=== PATIENT | male | born 1980 | race American Indian/Alaskan Native ===

== ENCOUNTER 2020-06-22 21:49 | Inpatient (IN) | payer SELFPAY ==
--- NOTE | 2020-06-22 23:04 | Event Note ---
ED Screening Note ED Screening Note: pain in the left shoulder, left knee, left lower back, left neck for since yesterday no fall or injury one episode of vomiting yesterday upper abd discomfort states feels like a muscle pulling hx of septic joint and HIV has been off meds for few weeks due to moving from [place] no med allergies This initial assessment/diagnostic orders/clinical plan/treatment(s) is/are subject to change based on patients health status, clinical progression and re- assessment by fellow clinical providers in the ED. Further treatment and workup at subsequent clinical providers discretion. Patient/guardian urged not to elope from the ED as their condition may be serious if not clinically assessed and managed. Initial orders include: labs, UA
[2020-06-23] MEDS ORDERED: ONDANSETRON 4 MG/2 ML INJ IV ONE (00:08)
[2020-06-23] MEDS ORDERED: SODIUM CHLORIDE 0.9% 1000 ML 1,000 ML IV ONE (00:08)
[2020-06-23] MEDS ORDERED: KETOROLAC 30 MG/1 ML INJ IV ONE (00:08)
[2020-06-23] MEDS ORDERED: dexAMETHasone 20 MG/5 ML VIAL IV ONE (00:08)
[2020-06-23] MEDS ORDERED: MORPHINE 4 MG/1 ML INJ IV ONE (00:08)
[2020-06-23] MEDS ORDERED: ACETAMINOPHEN 500 MG TAB PO ONE (00:19)
--- NOTE | 2020-06-23 00:19 | Emergency Department Report ---
ED Fever HPI - General Chief Complaint: Chest Pain Stated Complaint: CHEST DISCOMFORT PUI?: Yes Time Seen by Provider: 06/22/20 22:58 Source: patient Exam Limitations: no limitations - History of Present Illness Initial Comments: Chief complaint: "I am just hurting so badly." HPI: This is a 39-year-old male with history of HIV not on ART, septic arthritis who presents with 2 days of joint pain fever malaise anorexia fatigue. Patient first noted left knee pain. Now he has left shoulder pain. Pain severe in the left knee causing him to limp. The pain in the left knee radiates to thigh and groin. He also has left shoulder pain rating to the back. He feels "handicapped". It takes him 15 minutes to walk to the bathroom. It takes him 15 minutes to walk across his home. He has had poor appetite. He was brought to the ER per private auto. His friend brought him to the ER. He was diagnosed with acute HIV and septic arthritis 5 years ago in [place]. He was treated with needle aspiration of the left knee. He did not require operative therapy on the left knee. Patient moved from [place] in August. He is not taking ART HIV meds since August. He has active [place] Medicaid insurance. He is awaiting health insurance from [employer] he has now been employed for 2 months. He is awaiting health insurance provided by [employer]. He denies discrete chest or abdominal pain. Timing/Duration: other (2 days) Fever Severity/Quality: low grade Fever Therapy [employer]: none Associated Symptoms: other (Left shoulder pain left knee pain) ED Review of Systems ROS: Stated complaint: CHEST DISCOMFORT Other details as noted in HPI Comment: All other systems reviewed and negative Constitutional: fever, malaise. denies: chills ENT: denies: throat pain Respiratory: denies: cough, shortness of breath, wheezing Cardiovascular: denies: chest pain Gastrointestinal: denies: abdominal pain, nausea, vomiting Musculoskeletal: arthralgia ED Past Medical Hx - Past Medical History Previous Medical History?: Yes Hx HIV: Yes - Surgical History Past Surgical History?: No - Social History Smoking Status: Current Every Day Smoker Substance Use Type: Alcohol, Marijuana ED Physical Exam - General Limitations: No Limitations General appearance: alert, in no apparent distress, other (Guarding left arm, obviously in pain) - Head Head exam: Present: atraumatic, normocephalic - Eye Eye exam: Present: normal appearance - ENT ENT exam: Present: mucous membranes moist - Neck Neck exam: Present: normal inspection, full ROM - Respiratory Respiratory exam: Present: normal lung sounds bilaterally. Absent: respiratory distress, wheezes, rales, rhonchi - Cardiovascular Cardiovascular Exam: Present: normal rhythm, tachycardia, normal heart sounds. Absent: systolic murmur, diastolic murmur, rubs, gallop - GI/Abdominal GI/Abdominal exam: Present: soft, normal bowel sounds. Absent: distended, tenderness, guarding, rebound - Rectal Rectal exam: Present: deferred - Expanded Upper Extremity Exam Left Shoulder Exam: Present: full ROM, tenderness. Absent: swelling, abrasion, laceration, ecchymosis, deformity, crepidus, dislocation, erythema Upper Arm exam: Present: normal inspection, full ROM. Absent: tenderness, swelling, abrasion, laceration Elbow exam: Present: normal inspection, full ROM. Absent: tenderness, swelling, abrasion Forearm Wrist exam: Present: normal inspection, full ROM. Absent: tenderness, swelling Hand Wrist exam: Present: normal inspection, full ROM - Expanded Lower Extremity Exam Left Hip exam: Present: normal inspection, full ROM. Absent: tenderness, swelling Upper Leg exam: Present: normal inspection, full ROM Knee exam: Present: normal inspection, full ROM. Absent: tenderness, swelling, abrasion, ecchymosis, erythema, effusion Lower Leg exam: Present: normal inspection, full ROM. Absent: tenderness, swelling, abrasion Ankle exam: Present: normal inspection, full ROM. Absent: tenderness, swelling Neuro vascular tendon exam: Present: no vascular compromise - Neurological Exam Neurological exam: Present: alert, oriented X3 - Psychiatric Psychiatric exam: Present: normal affect, normal mood - Skin Skin exam: Present: warm, dry, intact, normal color. Absent: rash ED Course Vital Signs 06/22/20 06/23/20 06/23/20 22:08 00:13 00:26 Temperature 97.4 F L Pulse Rate 120 H 122 H Respiratory 18 17 18 Rate Blood Pressure 132/82 Blood Pressure 125/87 [Right] O2 Sat by Pulse 100 100 Oximetry ED Medical Decision Making - Lab Data Result diagrams: 06/23/20 00:12 06/23/20 00:12 - Radiology Data Radiology results: report reviewed, image reviewed CHEST 1 VIEW INDICATION: fever. Left-sided chest pain for the past 2 days with fever COMPARISON: None FINDINGS: SUPPORT DEVICES: None. HEART: Within normal limits. LUNGS/PLEURA: Mild central peribronchial thickening and trace fluid along the minor fissure. No dense consolidation or effusion. ADDITIONAL FINDINGS: None. IMPRESSION: 1. Pulmonary findings as above could be seen with very mild/early edema or atypical infectious/inflammatory etiology. - Medical Decision Making This is a 39-year-old male with history of HIV not compliant with ART who pre sents with subjective fever, joint pain in the shoulder in left knee. He stated that he had similar symptoms when he was diagnosed and hospitalized for acute HIV 5 years ago. X-ray reveals mild peribronchial thickening and trace fluid along the minor fissure. Upon my personal view, x-ray appears to have a reticular nodular pattern seen with pneumocystis pneumonia Patient has persistent tachycardia 120 bpm at rest after fluid resuscitation and IV analgesia. I am concerned for atypical pneumonia such as COVID-19 as well as opportunistic pneumonia including Streptococcus pneumonia versus pneumocystis pneumonia. Patient is admitted to hospital service. COVID-19 precautions instituted. No evidence of septic arthritis involving the left knee or left shoulder. Neither joint exhibits effusion. Antibiotics initiated in the ED include Bactrim DS, ceftriaxone, azithromycin. CBC reveals normal white count mild anemia chemistry unremarkable Critical care attestation.: If time is entered above; I have spent that time in minutes in the direct care of this critically ill patient, excluding procedure time. ED Disposition Clinical Impression: HIV (human immunodeficiency virus infection), Atypical pneumonia, Suspected COVID-19 virus infection Disposition: OP ADMIT IP TO THIS HOSP Is pt being admited?: Yes Does the pt Need Aspirin: No Condition: Stable
--- NOTE | 2020-06-23 00:38 | XRay Report ---
CHEST 1 VIEW INDICATION: fever. Left-sided chest pain for the past 2 days with fever COMPARISON: None FINDINGS: SUPPORT DEVICES: None. HEART: Within normal limits. LUNGS/PLEURA: Mild central peribronchial thickening and trace fluid along the minor fissure. No dense consolidation or effusion. ADDITIONAL FINDINGS: None. IMPRESSION: 1. Pulmonary findings as above could be seen with very mild/early edema or atypical infectious/inflam matory etiology. Signer Name: Dexter Leija MD Signed: 06/23/2020 12:34 AM Workstation Name: [id number]
[2020-06-23 00:51] LABS: Basophils % (Auto) 0.2 % (0.0-1.8); Eosinophils % (Auto) 0.1 % (0.0-4.3); Hematocrit 29.8 % (35.5-45.6); Hemoglobin 9.9 gm/dl (11.8-15.2); Lymphocytes # (Auto) 1.6 K/mm3 (1.2-5.4); Lymphocytes % (Auto) 15.2 % (13.4-35.0); Mean Corpuscular HGB Conc 33 % (32-34); Mean Corpuscular Volume 90 fl (84-94); Monocytes # (Auto) 0.9 K/mm3 (0.0-0.8); Monocytes % (Auto) 8.5 % (0.0-7.3); Platelet Count 181 K/mm3 (140-440); Red Blood Count 3.31 M/mm3 (3.65-5.03); Red Cell Distribution Width 14.7 % (13.2-15.2)
[2020-06-23 01:00] LABS: Alanine Aminotransferase 12 units/L (7-56); Albumin 2.7 g/dL (3.9-5); BUN/Creatinine Ratio 20; Blood Urea Nitrogen 16 mg/dL (9-20); Calcium 8.3 mg/dL (8.4-10.2); Hemolysis Index 1
[2020-06-23 02:04] LABS: Bilirubin,Urine NEG (Negative); Blood,Urine LG (Negative); Color,Urine Yellow (Yellow); Mucus,Urine FEW /HPF
[2020-06-23] MEDS ORDERED: SULFAMETHOXAZOLE/TRIMETHOPRIM 800/160MG DS TAB PO ONE (02:58)
[2020-06-23] MEDS ORDERED: AZITHROMYCIN 500 MG in SODIUM CHLORIDE 0.9% 250ML 250 ML IV ONE (02:59)
[2020-06-23] MEDS ORDERED: cefTRIAXone/NS 1 GM/50 ML 1 GM/50 ML BAG IV ONE (02:59)
[2020-06-23] MEDS ORDERED: ONDANSETRON 4 MG/2 ML INJ IV PRN (03:36)
[2020-06-23] MEDS ORDERED: MAGNESIUM HYDROXIDE (MOM) ORAL LIQD UDC PO PRN (03:36)
--- NOTE | 2020-06-23 03:58 | History and Physical Report ---
History of Present Illness Date of examination: 06/23/20 Date of admission: 06/23/20 03:03 Chief complaint: Fever Fatigue Shortness of Breath History of present illness: 39-year-old -[place] male with known history of HIV with unknown CD4 count noncompliant with antiretroviral therapy presents to the emergency room today complaining of fever, fatigue, generalized malaise and joint pains which has been ongoing for the past 2 days. He has also had some knee pain and shoulder pain. He denies any fall or trauma to these joints. He has been having difficulty ambulating secondary to the pain. He has also been having minimal shortness of breath. He denies any chest pain. Patient was diagnosed with HIV and septic arthritis about 5 years ago while in [facility] . He subsequently had needle aspiration of the left knee at that time. Patient moved to [place] sometime in September 2019 and has not had any recent travel. He works from home and denies any sick contacts. He has not been on his medication since August when he moved to [place] as he has not had insurance established at his new job. Work-up today in the emergency room chest x-ray reveals: mild/early edema or atypical infectious/inflammatory process. Patient is admitted with pneumonia and will rule out COVID-19. Past History Past Medical History: HIV/AIDS Past Surgical History: No surgical history Social history: smoking, alcohol abuse Family history: no significant family history Medications and Allergies Allergies Allergy/AdvReac Type Severity Reaction Status Date / Time No Known Allergies Allergy Verified 06/22/20 22:07 Active Meds: Active Medications Azithromycin 500 mg/ Sodium (Chloride) 250 mls @ 250 mls/hr IV ONCE ONE; Protocol Stop: 06/23/20 03:58 Last Admin: 06/23/20 03:20 Dose: 250 mls/hr Documented by: Review of Systems Constitutional: anorexia, fatigue, lethargy, poor appetite Ears, nose, mouth and throat: no nasal congestion, no sore throat Cardiovascular: no chest pain, no palpitations Respiratory: shortness of breath, no cough Gastrointestinal: no abdominal pain, no nausea, no vomiting, no diarrhea Genitourinary Male: no dysuria, no hematuria, no nocturia Musculoskeletal: no neck pain, no low back pain Integumentary: no rash, no pruritis Neurological: no headaches, no confusion Psychiatric: no anxiety, no depression Exam - Constitutional Vitals: Temp Pulse Resp BP Pulse Ox 97.4 F L 114 H 17 130/85 100 06/22/20 22:08 06/23/20 03:22 06/23/20 03:22 06/23/20 03:22 06/23/20 03:22 General appearance: Present: no acute distress, well-nourished - EENT Eyes: Present: PERRL, EOM intact. Absent: scleral icterus ENT: hearing intact, clear oral mucosa, dentition normal - Neck Neck: Present: supple, normal ROM - Respiratory Respiratory effort: normal Respiratory: bilateral: diminished - Cardiovascular Rhythm: regular Heart Sounds: Present: S1 & S2. Absent: gallop, systolic murmur, diastolic murmur, rub - Extremities Extremities: no ischemia, pulses intact, pulses symmetrical, No edema, Full ROM Peripheral Pulses: within normal limits - Abdominal General gastrointestinal: Present: soft, non-tender, non-distended, normal bowel sounds. Absent: mass - Integumentary Integumentary: Present: clear, warm, dry. Absent: rash - Musculoskeletal Musculoskeletal: strength equal bilaterally - Psychiatric Psychiatric: appropriate mood/affect, intact judgment & insight, memory intact, cooperative - Neurologic Neurologic: CNII-XII intact, no focal deficits, moves all extremities Results - Labs CBC & Chem 7: 06/23/20 00:12 06/23/20 00:12 Labs: Abnormal lab results 06/23/20 06/23/20 06/23/20 Range/Units 00:12 00:12 01:38 RBC 3.31 L (3.65-5.03) M/mm3 Hgb 9.9 L (11.8-15.2) gm/dl Hct 29.8 L (35.5-45.6) % [place] % (Auto) 8.5 H (0.0-7.3) % [place] # (Auto) 0.9 H (0.0-0.8) K/mm3 Seg Neutrophils % 76.0 H (40.0-70.0) % Seg Neutrophils # 8.1 H (1.8-7.7) K/mm3 Sodium 136 L (137-145) mmol/L Calcium 8.3 L (8.4-10.2) mg/dL Total Creatine Kinase 24 L (55-170) units/L Total Protein 8.4 H (6.3-8.2) g/dL Albumin 2.7 L (3.9-5) g/dL Urine WBC (Auto) 12.0 H (0.0-6.0) /HPF Assessment and Plan - Patient Problems (1) Atypical pneumonia Current Visit: Yes Status: Acute Plan to address problem: Patient placed on empiric IV antibiotics. We await culture results. In view of his history of HIV and noncompliance with antiretroviral agent, patient also placed on Bactrim. (2) HIV (human immunodeficiency virus infection) Current Visit: Yes Status: Acute Plan to address problem: CD4 count is unknown. Patient has not been antiretroviral agents for 9 months. (3) Suspected COVID-19 virus infection Current Visit: Yes Status: Acute Plan to address problem: We will place patient on isolation precautions. We await COVID-19 testing. Consult placed to infectious disease for evaluation. (4) DVT prophylaxis Current Visit: Yes Status: Acute Plan to address problem: Patient placed on subcutaneous Lovenox. (5) Full code status Current Visit: Yes Status: Acute
[2020-06-23] MEDS: SODIUM CHLORIDE 0.9% 1000 ML 1,000 ML IV SCH ×2 (05:00→22:53)
[2020-06-23] MEDS ORDERED: SULFAMETHOXAZOLE/TRIMETHOPRIM 800/160MG DS TAB PO SCH ×2 (10:00→22:00)
--- NOTE | 2020-06-23 13:42 | Consultation ---
History of Present Illness - Reason for Consult Consult date: 06/23/20 HIV, pneumonia Requesting physician: ANA PAYNE - History of Present Illness The patient is a 39-year-old male with HIV, not on antiretroviral therapy since September 2019, moved here from [place]. He came to the emergency room due to joint pain, fever, malaise, fatigue. He also has a history of septic arthritis of the knee. Upon evaluation in the ER, noted to be afebrile, remains on room air. Has been tachycardic. Labs showed normal WBC, procalcitonin of 1.65, UA with mild pyuria. Review of Systems: reviewed in the chart, unable to obtain, minimize risk of transmission Past History Past Medical History: HIV/AIDS Past Surgical History: No surgical history Social history: smoking, alcohol abuse Family history: no significant family history Medications and Allergies Allergies Allergy/AdvReac Type Severity Reaction Status Date / Time No Known Allergies Allergy Verified 06/22/20 22:07 Active Meds: Active Medications Acetaminophen (Acetaminophen 325 Mg Tab) 650 mg PO Q4H PRN PRN Reason: Pain MILD(1-3)/Fever >100.5/ISRAEL Sodium Chloride (Nacl 0.9% 1000 Ml) 1,000 mls @ 75 mls/hr IV DIRECT DEVONTE Last Admin: 06/23/20 05:00 Dose: 75 mls/hr Documented by: Ceftriaxone Sodium (Rocephin/Ns 2 Gm/100 Ml) 2 gm in 100 mls @ 200 mls/hr IV Q24H DEVONTE; Protocol Azithromycin 500 mg/ Sodium (Chloride) 250 mls @ 250 mls/hr IV Q24H DEVONTE; Protocol Magnesium Hydroxide (Magnesium Hydroxide (Mom) Oral Liqd Udc) 30 ml PO Q4H PRN PRN Reason: Constipation Morphine Sulfate (Morphine 2 Mg/1 Ml Inj) 2 mg IV Q4H PRN PRN Reason: Pain, Moderate (4-6) Ondansetron HCl (Ondansetron 4 Mg/2 Ml Inj) 4 mg IV Q8H PRN PRN Reason: Nausea And Vomiting Sodium Chloride (Sodium Chloride 0.9% 10 Ml Flush Syringe) 10 ml IV BID DEVONTE Last Admin: 06/23/20 09:31 Dose: 10 ml Documented by: Sodium Chloride (Sodium Chloride 0.9% 10 Ml Flush Syringe) 10 ml IV PRN PRN PRN Reason: LINE FLUSH Trimethoprim/Sulfamethoxazole (Sulfamethoxazole/Trimethoprim 800/160mg Ds Tab) 2 each PO Q12HR DEVONTE; Protocol Physical Examination - Physical Exam Narrative exam: Physical Exam (reviewed in chart to minimize risk of transmission) Constitutional: deferred Head, Ears, Nose: deferred Eyes: deferred Neck: deferred Oral: deferred Cardiovascular: deferred Respiratory: deferred GI: deferred Musculoskeletal: deferred Skin: deferred Hem/Lymphatic: deferred Psych: deferred Neurological: deferred - Constitutional Vitals: Vital Signs Temp Pulse Resp BP Pulse Ox 98.7 F 120 H 20 126/81 100 06/23/20 05:00 06/23/20 06:30 06/23/20 06:30 06/23/20 06:30 06/23/20 06:00 Temperature -Last 24 Hours Temperature 98.7 F Temperature 97.4 F Results - Labs CBC & Chem 7: 06/23/20 00:12 06/23/20 00:12 Labs: Abnormal lab results 06/23/20 06/23/20 06/23/20 Range/Units 00:12 00:12 01:38 RBC 3.31 L (3.65-5.03) M/mm3 Hgb 9.9 L (11.8-15.2) gm/dl Hct 29.8 L (35.5-45.6) % [place] % (Auto) 8.5 H (0.0-7.3) % [place] # (Auto) 0.9 H (0.0-0.8) K/mm3 Seg Neutrophils % 76.0 H (40.0-70.0) % Seg Neutrophils # 8.1 H (1.8-7.7) K/mm3 D-Dimer (0-234) ng/mlDDU Sodium 136 L (137-145) mmol/L Calcium 8.3 L (8.4-10.2) mg/dL Total Creatine Kinase 24 L (55-170) units/L Total Protein 8.4 H (6.3-8.2) g/dL Albumin 2.7 L (3.9-5) g/dL Urine WBC (Auto) 12.0 H (0.0-6.0) /HPF 06/23/20 Range/Units 03:25 RBC (3.65-5.03) M/mm3 Hgb (11.8-15.2) gm/dl Hct (35.5-45.6) % [place] % (Auto) (0.0-7.3) % [place] # (Auto) (0.0-0.8) K/mm3 Seg Neutrophils % (40.0-70.0) % Seg Neutrophils # (1.8-7.7) K/mm3 D-Dimer 1312.19 H (0-234) ng/mlDDU Sodium (137-145) mmol/L Calcium (8.4-10.2) mg/dL Total Creatine Kinase (55-170) units/L Total Protein (6.3-8.2) g/dL Albumin (3.9-5) g/dL Urine WBC (Auto) (0.0-6.0) /HPF - Imaging and Cardiology Chest x-ray: report reviewed, image reviewed (faint b/l opacities) Assessment and Plan Cultures: SARS CoV2 PCR: Pending Blood culture: In process A/P: 39-year-old male with HIV, not on antiretroviral therapy since September 2019, moved here from [place]: #SIRS/sepsis #Atypical pneumonia: CD4 unknown. Cover for CAP and possible PJP. Not hypoxic. #HIV: Not on antiretroviral therapy Recs: Follow-up COVID-19 PCR Empiric ceftriaxone, azithromycin Continue Bactrim for now, dose increased to 2 tabs BID HIV RNA PCR, CD4 count ordered Follow-up blood cultures LDH ordered Refugio Loyola MD, FACP [facility] ([facility]) O: [phone] F: [phone]
[2020-06-23] MEDS: MORPHINE 2 MG/1 ML INJ IV PRN ×2 (14:22→20:23)
--- NOTE | 2020-06-23 16:47 | Event Note ---
Date: 06/23/20 Patient admitted in early a.m. and seen by Dr. Cheney Chart reviewed Patient seen Patient has HIV, pneumonia Patient is coronavirus negative Continue present treatment HIV work-up pending
[2020-06-23] MEDS ORDERED: cefTRIAXone/NS 2 GM/100 ML 2 GM/100 ML BAG IV SCH (22:00)
[2020-06-23] MEDS ORDERED: AZITHROMYCIN 500 MG in SODIUM CHLORIDE 0.9% 250ML 250 ML IV SCH (22:00)
[2020-06-24 06:08] LABS: Basophils % (Auto) 0.2 % (0.0-1.8); Hematocrit 26.7 % (35.5-45.6); Hemoglobin 8.8 gm/dl (11.8-15.2); Lymphocytes # (Auto) 1.9 K/mm3 (1.2-5.4); Lymphocytes % (Auto) 15.9 % (13.4-35.0); Mean Corpuscular HGB Conc 33 % (32-34); Mean Corpuscular Volume 90 fl (84-94); Monocytes % (Auto) 8.5 % (0.0-7.3); Platelet Count 198 K/mm3 (140-440); Red Blood Count 2.97 M/mm3 (3.65-5.03); Red Cell Distribution Width 14.4 % (13.2-15.2)
[2020-06-24 06:14] LABS: INR 1.04 (0.87-1.13)
[2020-06-24 06:27] LABS: Blood Urea Nitrogen 15 mg/dL (9-20); Hemolysis Index 5
[2020-06-24 06:33] LABS: BUN/Creatinine Ratio 21
--- NOTE | 2020-06-24 14:49 | Progress Note ---
Assessment and Plan Cultures: SARS CoV2 PCR: negative Blood culture: 2 bottles with GNR and GPC A/P: 39-year-old male with HIV, not on antiretroviral therapy since September 2019, moved here from [place]: #SIRS/sepsis: secondary to bacteremia. #Bacteremia; GPC and GNR. Patient with left shoulder and hip pain, eval for septic arthritis. #Atypical pneumonia: CD4 unknown. Cover for CAP and possible PJP. Not hypoxic. #HIV: Not on antiretroviral therapy. Used to be undetectable, on Symtuza, has not taken meds for at least 2 months after he moved here. Risk factor is MSM. #History of left knee septic arthritis about 5 years ago: Treated with antibiotics. Recs: Follow-up blood cultures TTE ordered Empiric Cefepime, IV Vancomycin low suspicion for PJP, bactrim discontinued f/u HIV RNA PCR, CD4 count ordered Imaging studies ordered for left shoulder and hip including MRI. Orthopedics consult. Refugio Loyola MD, FACP [facility] ([facility]) O: [phone] F: [phone] Subjective Date of service: 06/24/20 Interval history: No fever. No significant cough. Main complaint is left shoulder and left hip pain. Objective - Exam Narrative Exam: Physical Exam: Constitutional: Alert, cooperative. No acute distress Head, Ears, Nose: Normocephalic, atraumatic. External ears, nose normal Eyes: Conjunctivae/corneas clear. No icterus. No ptosis. Neck: Supple, no meningeal signs Cardiovascular: S1, S2 normal. Respiratory: Good air entry, clear to auscultation bilaterally GI: Soft, non-tender; bowel sounds normal. No peritoneal signs Musculoskeletal: Left shoulder and left hip with significant pain, reduced range of motion Skin: No rash or abscess Hem/Lymphatic: No palpable cervical or supraclavicular nodes. No lymphangitis Psych: Mood ok. Affect normal Neurological: Awake, alert, oriented. No gross abnormality - Constitutional Vitals: Vital Signs Temp Pulse Resp BP Pulse Ox 97.6 F 98 H 20 140/95 98 06/24/20 04:46 06/24/20 04:46 06/24/20 04:46 06/24/20 04:46 06/24/20 04:46 Temperature -Last 24 Hours Temperature 97.6 F Temperature 98.8 F - Labs CBC & Chem 7: 06/24/20 04:40 06/24/20 04:40 Labs: Abnormal lab results 06/24/20 06/24/20 Range/Units 04:40 04:40 WBC 12.1 H (4.5-11.0) K/mm3 RBC 2.97 L (3.65-5.03) M/mm3 Hgb 8.8 L (11.8-15.2) gm/dl Hct 26.7 L (35.5-45.6) % [place] % (Auto) 8.5 H (0.0-7.3) % [place] # (Auto) 1.0 H (0.0-0.8) K/mm3 Seg Neutrophils % 75.4 H (40.0-70.0) % Seg Neutrophils # 9.1 H (1.8-7.7) K/mm3 Creatinine 0.7 L (0.8-1.3) mg/dL Glucose 113 H (75-100) mg/dL Calcium 8.0 L (8.4-10.2) mg/dL
[2020-06-24] MEDS ORDERED: VANCOMYCIN 1,000 MG in SODIUM CHLORIDE 0.9% 500 ML 500 ML IV ONE (14:54)
[2020-06-24] MEDS ORDERED: VANCOMYCIN PHARMACY TO DOSE IV SCH (15:00)
--- NOTE | 2020-06-24 16:06 | XRay Report ---
LEFT SHOULDER 3 VIEWS 1543 INDICATION: Pain, weakness, reduced range of motion, duration 3 days, no known injury COMPARISON: None available. FINDINGS: No fractures or dislocations are seen. Minimal glenohumeral degenerative changes are noted. LEFT HIP 2 VIEWS 1540 INDICATION: Pain, weakness, reduced range of motion, duration 3 days, no known injury COMPARISON: None available. FINDINGS: Mild left hip degenerative changes are seen. No fractures or dislocations are noted. Signer Name: Nacho Guallpa MD Signed: 06/24/2020 4:02 PM Workstation Name: [id number]
--- NOTE | 2020-06-24 17:40 | Progress Note ---
Assessment and Plan - Patient Problems (1) Atypical pneumonia Current Visit: Yes Status: Acute Plan to address problem: Patient initiated on ceftriaxone and vancomycin by ID \ (2) HIV (human immunodeficiency virus infection) Current Visit: Yes Status: Acute Plan to address problem: CD4 count is unknown. Patient has not been antiretroviral agents for 9 months. (3) Suspected COVID-19 virus infection Current Visit: Yes Status: Acute Plan to address problem: Patient negative for Covid virus (4) left shoulder pain and left hip pain Patient started on ceftriaxone . Vancomycin is discontinued septic arthritis to be ruled out patient refusing underlying MRI CAT scan of the abdomen Subjective Date of service: 06/25/20 Principal diagnosis: Pneumonia Interval history: 39-year-old -[place]ian male with known history of HIV with unknown CD4 count noncompliant with antiretroviral therapy presents to the emergency room today complaining of fever, fatigue, generalized malaise and joint pains which has been ongoing for the past 2 days. He has also had some knee pain and shoulder pain. He denies any fall or trauma to these joints. He has been having difficulty ambulating secondary to the pain. He has also been having minimal shortness of breath. He denies any chest pain. Patient was diagnosed with HIV and septic arthritis about 5 years ago while in [place] . He subsequently had needle aspiration of the left knee at that time. Patient moved to [place] sometime in September 2019 and has not had any recent travel. He works from home and denies any sick contacts. He has not been on his medication since August when he moved to [place] as he has not had insurance established at his new job. Work-up today in the emergency room chest x-ray reveals: mild/early edema or atypical infectious/inflammatory process. Patient is admitted with pneumonia and will rule out COVID-19. Day#2 Patient has lots of pain Day #3 06/25/2020 Patient resting comfortably Patient uncooperative during MRI x2 Blood cultures-haemophilus influenza A positive in 2 out of 2 bottles Objective - Constitutional General appearance: Present: no acute distress, well-nourished - EENT Eyes: PERRL, EOM intact ENT: hearing intact, clear oral mucosa Ears: bilateral: normal - Neck Neck: supple, normal ROM - Respiratory Respiratory effort: normal Respiratory: bilateral: CTA - Breasts Breasts: normal - Cardiovascular Heart rate: 78 Rhythm: regular Heart Sounds: Present: S1 & S2. Absent: gallop, rub Extremities: pulses intact, No edema, normal color, Full ROM - Gastrointestinal General gastrointestinal: Present: soft, non-tender, non-distended, normal bowel sounds - Genitourinary Male genitourinary: normal - Integumentary Integumentary: clear, warm, dry - Musculoskeletal Musculoskeletal: 1, strength equal bilaterally - Neurologic Neurologic: moves all extremities - Psychiatric Psychiatric: memory intact, appropriate mood/affect, intact judgment & insight - Labs CBC & Chem 7: 06/24/20 04:40 06/24/20 04:40 Labs: Abnormal lab results 06/24/20 06/24/20 Range/Units 04:40 04:40 WBC 12.1 H (4.5-11.0) K/mm3 RBC 2.97 L (3.65-5.03) M/mm3 Hgb 8.8 L (11.8-15.2) gm/dl Hct 26.7 L (35.5-45.6) % [place] % (Auto) 8.5 H (0.0-7.3) % [place] # (Auto) 1.0 H (0.0-0.8) K/mm3 Seg Neutrophils % 75.4 H (40.0-70.0) % Seg Neutrophils # 9.1 H (1.8-7.7) K/mm3 Creatinine 0.7 L (0.8-1.3) mg/dL Glucose 113 H (75-100) mg/dL Calcium 8.0 L (8.4-10.2) mg/dL
[2020-06-24] MEDS: HYDROmorphone 1 MG/1 ML INJ IV PRN ×2 (17:58→23:26)
[2020-06-24] MEDS: CEFEPIME/NS 2 GM/100 ML 2 GM/100 ML BAG IV SCH (18:01)
[2020-06-24] MEDS: VANCOMYCIN/NS 1 GM/250 ML 1 GM/250 ML BAG IV SCH (20:20)
[2020-06-25] MEDS: VANCOMYCIN/NS 1 GM/250 ML 1 GM/250 ML BAG IV SCH ×2 (01:48→11:58)
[2020-06-25] MEDS: MORPHINE 2 MG/1 ML INJ IV PRN (02:22)
[2020-06-25] MEDS: CEFEPIME/NS 2 GM/100 ML 2 GM/100 ML BAG IV SCH (05:09)
[2020-06-25] MEDS: HYDROmorphone 1 MG/1 ML INJ IV PRN ×3 (05:27→13:11)
[2020-06-25] MEDS ORDERED: LORazepam 2 MG/ML VIAL IV ONE (12:16)
--- NOTE | 2020-06-25 13:25 | Progress Note ---
Assessment and Plan Cultures: SARS CoV2 PCR: negative 06/23/2020 blood culture: Haemophilus influenzae in 2 sets. Coag negative staph in 1 set. A/P: 39-year-old male with HIV, not on antiretroviral therapy since September 2019, moved here from [place]: #SIRS/sepsis: secondary to bacteremia, ?pneumonia. #Bacteremia: Haemophilus influenzae in 2 sets, source probably pneumonia, but with left shoulder and hip pain, eval for septic arthritis. MRI pending. Ortho eval pending. Coag negative staph in 1 set, likely contaminant. TTE did not reveal any significant valvular abnormalities. #Pneumonia: CD4 unknown but was well controlled until recent, very likely to be PJP. Blood cultures positive for Haemophilus influenzae. #HIV: Not on antiretroviral therapy. Used to be undetectable, on Symtuza, has not taken meds for at least 2 months after he moved here. Risk factor is MSM. New insurance is going to kick in soon. #History of left knee septic arthritis about 5 years ago: Treated with antibiotics. Recs: -Repeat blood cultures ordered -Cefepime deescalated to IV ceftriaxone -Vancomycin discontinued -low suspicion for PJP, bactrim discontinued, if CD4 count is low, can start prophylactic dose -f/u HIV RNA PCR, CD4 count ordered -f/u MRI left shoulder and hip -f/u Orthopedics consult d/w Dr. Berkley Loyola MD, FACP [facility] O: [phone] F: [phone] Subjective Date of service: 06/25/20 Principal diagnosis: Pneumonia Interval history: No fever. Was initially unable to tolerate MRI due to pain, is now going back. TTE did not reveal any significant valvular abnormalities. Objective - Exam Narrative Exam: Physical Exam: Constitutional: Alert, cooperative. No acute distress Head, Ears, Nose: Normocephalic, atraumatic. External ears, nose normal Eyes: Conjunctivae/corneas clear. No icterus. No ptosis. Neck: Supple, no meningeal signs Cardiovascular: S1, S2 normal. Respiratory: Good air entry, clear to auscultation bilaterally GI: Soft, non-tender; bowel sounds normal. No peritoneal signs Musculoskeletal: Left shoulder and left hip with significant pain, reduced range of motion Skin: No rash or abscess Hem/Lymphatic: No palpable cervical or supraclavicular nodes. No lymphangitis Psych: Mood ok. Affect normal Neurological: Awake, alert, oriented. No gross abnormality - Constitutional Vitals: Vital Signs Temp Pulse Resp BP Pulse Ox 99.3 F 120 H 18 170/93 95 06/25/20 05:10 06/25/20 05:10 06/25/20 05:57 06/25/20 05:10 06/25/20 05:10 Temperature -Last 24 Hours Temperature 99.3 F Temperature 98.0 F Temperature 99.2 F - Labs CBC & Chem 7: 06/24/20 04:40 06/24/20 04:40
--- NOTE | 2020-06-25 15:08 | Progress Note ---
Assessment and Plan - Patient Problems (1) Atypical pneumonia Current Visit: Yes Status: Acute Plan to address problem: Patient initiated on ceftriaxone (2) HIV (human immunodeficiency virus infection) Current Visit: Yes Status: Acute Plan to address problem: CD4 count is unknown. Patient has not been antiretroviral agents for 9 months. (3) Suspected COVID-19 virus infection Current Visit: Yes Status: Acute Plan to address problem: Patient negative for Covi negative (4) left shoulder pain and left hip pain Patient started on ceftriaxone . Vancomycin is discontinued septic arthritis to be ruled out patient refusing underlying MRI CAT scan of the abdomen - Patient Problems (1) Atypical pneumonia Current Visit: Yes Status: Acute Plan to address problem: Patient is on ceftriaxone for haemophilus influenza infection (2) HIV (human immunodeficiency virus infection) Current Visit: Yes Status: Acute Plan to address problem: Continue antiretrovirals (3) Suspected COVID-19 virus infection Current Visit: Yes Status: Acute Plan to address problem: Covid ruled out (4) DVT prophylaxis Current Visit: Yes Status: Acute Plan to address problem: hepatin Subjective Date of service: 06/25/20 Principal diagnosis: Pneumonia Interval history: 39-year-old -[place] male with known history of HIV with unknown CD4 count noncompliant with antiretroviral therapy presents to the emergency room today complaining of fever, fatigue, generalized malaise and joint pains which has been ongoing for the past 2 days. He has also had some knee pain and shoulder pain. He denies any fall or trauma to these joints. He has been having difficulty ambulating secondary to the pain. He has also been having minimal shortness of breath. He denies any chest pain. Patient was diagnosed with HIV and septic arthritis about 5 years ago while in [place] . He subsequently had needle aspiration of the left knee at that time. Patient moved to [place] sometime in September 2019 and has not had any recent travel. He works from home and denies any sick contacts. He has not been on his medication since August when he moved to [place] as he has not had insurance established at his new job. Work-up today in the emergency room chest x-ray reveals: mild/early edema or atypical infectious/inflammatory process. Patient is admitted with pneumonia and will rule out COVID-19. Day#2 Patient has lots of pain Day #3 06/25/2020 Patient resting comfortably Patient uncooperative during MRI x2 Blood cultures-haemophilus influenza A positive in 2 out of 2 bottles Objective - Constitutional Vitals: Vital Signs - 12hr 06/25/20 06/25/20 06/25/20 05:10 05:27 05:57 Temperature 99.3 F Pulse Rate 120 H Respiratory 18 20 18 Rate Blood Pressure 170/93 O2 Sat by Pulse 95 Oximetry - Labs CBC & Chem 7: 06/24/20 04:40 06/24/20 04:40
[2020-06-25] MEDS: cefTRIAXone/NS 2 GM/100 ML 2 GM/100 ML BAG IV SCH (17:51)
[2020-06-25] MEDS: SODIUM CHLORIDE 0.9% 1000 ML 1,000 ML IV SCH (17:52)
[2020-06-25] MEDS: ACETAMINOPHEN 325 MG TAB PO PRN (18:00)
[2020-06-26 05:10] LABS: Basophils % (Auto) 0.1 % (0.0-1.8); Eosinophils % (Auto) 0.1 % (0.0-4.3); Hematocrit 27.1 % (35.5-45.6); Hemoglobin 9.2 gm/dl (11.8-15.2); Lymphocytes # (Auto) 2.1 K/mm3 (1.2-5.4); Lymphocytes % (Auto) 24.7 % (13.4-35.0); Mean Corpuscular HGB Conc 34 % (32-34); Mean Corpuscular Volume 88 fl (84-94); Monocytes # (Auto) 1.2 K/mm3 (0.0-0.8); Platelet Count 350 K/mm3 (140-440); Red Blood Count 3.09 M/mm3 (3.65-5.03); Red Cell Distribution Width 14.4 % (13.2-15.2)
[2020-06-26 05:24] LABS: Alanine Aminotransferase 7 units/L (7-56); Albumin 2.1 g/dL (3.9-5); Blood Urea Nitrogen 8 mg/dL (9-20); Calcium 8.2 mg/dL (8.4-10.2); Hemolysis Index 0
[2020-06-26 05:25] LABS: BUN/Creatinine Ratio 11
[2020-06-26] MEDS: ACETAMINOPHEN 325 MG TAB PO PRN ×2 (05:51→23:13)
[2020-06-26] MEDS: HYDROmorphone 1 MG/1 ML INJ IV PRN ×3 (06:14→23:12)
[2020-06-26] MEDS: cefTRIAXone/NS 2 GM/100 ML 2 GM/100 ML BAG IV SCH (09:41)
[2020-06-26] MEDS: SODIUM CHLORIDE 0.9% 1000 ML 1,000 ML IV SCH (09:41)
[2020-06-26] MEDS ORDERED: SYMTUZA PO SCH (12:45)
--- NOTE | 2020-06-26 12:47 | Progress Note ---
Assessment and Plan Assessment and plan: 39-year-old -[place] male with known history of HIV with unknown CD4 count noncompliant with antiretroviral therapy presents to the emergency room today complaining of fever, fatigue, generalized malaise and joint pains which has been ongoing for the past 2 days. He has also had some knee pain and shoulder pain. He denies any fall or trauma to these joints. He has been having difficulty ambulating secondary to the pain. He has also been having minimal shortness of breath. He denies any chest pain. Patient was diagnosed with HIV and septic arthritis about 5 years ago while in [place] . He subsequently had needle aspiration of the left knee at that time. Patient moved to [place] sometime in September 2019 and has not had any recent travel. He works from home and denies any sick contacts. He has not been on his medication since August when he moved to [place] as he has not had insurance established at his new job. Work-up today in the emergency room chest x-ray reveals: mild/early edema or atypical infectious/inflammatory process. Patient is admitted with pneumonia and will rule out COVID-19. Day#2 Patient has lots of pain Day #3 06/25/2020 Patient resting comfortably Patient uncooperative during MRI x2 Blood cultures-haemophilus influenza A positive in 2 out of 2 bottles 06/26: Remain septic at this time. Continue antibiotic therapy. Obtain imaging studies as updated. With the patient's permission discussed clinical care with the mom. We will also request for records from [facility] [place] [place] in [place] Sepsis with multifactorial etiology primarily atypical pneumonia but rule out septic joint. Imaging studies pending we will place a mid line for IV access. To be able to obtain the MRI as ordered by ID. Left upper and lower extremity hemiplegia and tenderness Likely secondary to infectious process nevertheless will rule out CVA. PT OT evaluate and treat. Secondary coagulopathy Rule out pulmonary embolism and also evaluate for DVTs lower extremities Atypical pneumonia secondary to influenza A Current Visit: Yes Status: Acute Plan to address problem: Patient initiated on ceftriaxone HIV (human immunodeficiency virus infection) Current Visit: Yes Status: Acute Plan to address problem: CD4 count is unknown. Patient has not been antiretroviral agents for 9 months. Resume home medication Suspected COVID-19 virus infection Current Visit: Yes Status: Acute Plan to address problem: Patient negative for Covi negative left shoulder pain and left hip pain Patient started on ceftriaxone . Vancomycin is discontinued septic arthritis to be ruled out patient refusing underlying MRI CAT scan of the abdomen DVT prophylaxis Current Visit: Yes Status: Acute Plan to address problem: hepatin Plan of care discussed with the patient in detail also discussed with patient's mom. History Interval history: Patient seen and examined this morning while reports that his breathing is stable does have significant weakness on the left side unable to lift his left upper extremity more than 45 degree angle due to tenderness at the shoulder level and also unable to lift up his left lower extremity to 30 degrees due to severe pain at the posterior aspect of the knee and also at the hip. He did have a documented temp of 101 this morning. Hospitalist Physical - Physical exam Narrative exam: VITAL SIGNS: Reviewed. GENERAL: The patient appears normally developed, Vital signs as documented. HEAD: No signs of head trauma. EYES: Pupils are equal. Extraocular motions intact. EARS: Hearing grossly intact. MOUTH: Oropharynx is normal. NECK: No adenopathy, no JVD. CHEST: Chest with clear breath sounds bilaterally. No wheezes, rales, or rhonchi. CARDIAC: Regular rate and rhythm. S1 and S2, without murmurs, gallops, or rubs. VASCULAR: No Edema. Peripheral pulses normal and equal in all extremities. ABDOMEN: Soft, non tender and non distended. No rebound or guarding, and no masses palpated. Bowel Sounds normal. MUSCULOSKELETAL: Left shoulder with limited range of motion and left hip significant pain . Extremities without clubbing, cyanosis or edema. NEUROLOGIC EXAM: Alert and oriented x 3 No focal sensory or strength deficits. Speech normal. Follows commands. PSYCHIATRIC: Mood normal. SKIN: detail exam as documented in skin assessment - Constitutional Vitals: Temp Pulse Resp BP Pulse Ox 98.3 F 106 H 18 139/97 96 06/26/20 11:16 06/26/20 11:16 06/26/20 11:16 06/26/20 11:16 06/26/20 11:16 General appearance: Present: no acute distress, well-nourished Results - Labs CBC & Chem 7: 06/26/20 03:57 06/26/20 03:57 Labs: Laboratory Last Values WBC 8.4 K/mm3 (4.5-11.0) 06/26/20 03:57 RBC 3.09 M/mm3 (3.65-5.03) L 06/26/20 03:57 Hgb 9.2 gm/dl (11.8-15.2) L 06/26/20 03:57 Hct 27.1 % (35.5-45.6) L 06/26/20 03:57 MCV 88 fl (84-94) 06/26/20 03:57 MCH 30 pg (28-32) 06/26/20 03:57 MCHC 34 % (32-34) 06/26/20 03:57 RDW 14.4 % (13.2-15.2) 06/26/20 03:57 Plt Count 350 K/mm3 (140-440) 06/26/20 03:57 Lymph % (Auto) 24.7 % (13.4-35.0) 06/26/20 03:57 [place] % (Auto) 14.0 % (0.0-7.3) H 06/26/20 03:57 Eos % (Auto) 0.1 % (0.0-4.3) 06/26/20 03:57 Baso % (Auto) 0.1 % (0.0-1.8) 06/26/20 03:57 Lymph # (Auto) 2.1 K/mm3 (1.2-5.4) 06/26/20 03:57 [place] # (Auto) 1.2 K/mm3 (0.0-0.8) H 06/26/20 03:57 Eos # (Auto) 0.0 K/mm3 (0.0-0.4) 06/26/20 03:57 Baso # (Auto) 0.0 K/mm3 (0.0-0.1) 06/26/20 03:57 Seg Neutrophils % 61.1 % (40.0-70.0) 06/26/20 03:57 Seg Neutrophils # 5.1 K/mm3 (1.8-7.7) 06/26/20 03:57 PT 13.4 Sec. (12.2-14.9) 06/24/20 04:40 INR 1.04 (0.87-1.13) 06/24/20 04:40 D-Dimer 1312.19 ng/mlDDU (0-234) H 06/23/20 03:25 Sodium 131 mmol/L (137-145) L D 06/26/20 03:57 Potassium 3.6 mmol/L (3.6-5.0) 06/26/20 03:57 Chloride 97.4 mmol/L (98-107) L 06/26/20 03:57 Carbon Dioxide 30 mmol/L (22-30) 06/26/20 03:57 Anion Gap 7 mmol/L 06/26/20 03:57 BUN 8 mg/dL (9-20) L 06/26/20 03:57 Creatinine 0.7 mg/dL (0.8-1.3) L 06/26/20 03:57 Estimated GFR > 60 ml/min 06/26/20 03:57 BUN/Creatinine Ratio 11 % 06/26/20 03:57 Glucose 98 mg/dL (75-100) 06/26/20 03:57 Calcium 8.2 mg/dL (8.4-10.2) L 06/26/20 03:57 Total Bilirubin 0.40 mg/dL (0.1-1.2) 06/26/20 03:57 AST 9 units/L (5-40) 06/26/20 03:57 ALT 7 units/L (7-56) 06/26/20 03:57 Alkaline Phosphatase 54 units/L (35-129) 06/26/20 03:57 Total Creatine Kinase 24 units/L (55-170) L 06/23/20 00:12 Total Protein 8.3 g/dL (6.3-8.2) H 06/26/20 03:57 Albumin 2.1 g/dL (3.9-5) L 06/26/20 03:57 Albumin/Globulin Ratio 0.3 % 06/26/20 03:57 Lipase 15 units/L (13-60) 06/23/20 00:12 Procalcitonin 1.65 ng/mL (<0.15) 06/23/20 03:25 Urine Color Yellow (Yellow) 06/23/20 01:38 Urine Turbidity Clear (Clear) 06/23/20 01:38 Urine pH 5.0 (5.0-7.0) 06/23/20 01:38 Ur Specific [place] 1.020 (1.003-1.030) 06/23/20 01:38 Urine Protein 100 mg/dl mg/dL (Negative) 06/23/20 01:38 Urine Glucose (UA) Neg mg/dL (Negative) 06/23/20 01:38 Urine Ketones Neg mg/dL (Negative) 06/23/20 01:38 Urine Blood Lg (Negative) 06/23/20 01:38 Urine Nitrite Neg (Negative) 06/23/20 01:38 Urine Bilirubin Neg (Negative) 06/23/20 01:38 Urine Urobilinogen 4.0 mg/dL (<2.0) 06/23/20 01:38 Ur Leukocyte Esterase Neg (Negative) 06/23/20 01:38 Urine WBC (Auto) 12.0 /HPF (0.0-6.0) H 06/23/20 01:38 Urine RBC (Auto) 46.0 /HPF (0.0-6.0) 06/23/20 01:38 U Epithel Cells (Auto) 1.0 /HPF (0-13.0) 06/23/20 01:38 Urine Mucus Few /HPF 06/23/20 01:38 Coronavirus (PCR) Negative (Negative) 06/23/20 Unknown Microbiology: Microbiology 06/25/20 14:45 Peripheral/Venous Blood Culture - Preliminary Culture in Progress 06/23/20 00:12 Peripheral/Venous Blood Culture - Preliminary Haemophilus Influenzae Coag Negative Staphylococcus 06/23/20 01:08 Peripheral/Venous Blood Culture - Preliminary Haemophilus Influenzae - Diagnostic Impressions Diagnostic Impressions: Echocardiogram 06/24/20 14:54 Transthoracic Echocardiogram Indication: Endocarditis BP: 170/93 HR: 118 Conclusions *Global left ventricular systolic function is normal. *The estimated ejection fraction is 55-60%. *Mild concentric left ventricular hypertrophy is observed. *The right ventricular global systolic function is normal. *The right ventricle is mildly dilated. *The aortic valve is trileaflet. The leaflets are thin with normal excursion. There is no aortic stenosis or regurgitation present. *There is trace of mitral regurgitation. *There is mild tricuspid regurgitation. Findings Left Ventricle: The left ventricular chamber size is normal. Mild concentric left ventricular hypertrophy is observed. Global left ventricular wall motion and contractility are within normal limits. Global left ventricular systolic function is normal. The estimated ejection fraction is 55-60%. Left Atrium: The left atrial chamber size is normal. Right Ventricle: The right ventricle is mildly dilated. The right ventricular global systolic function is normal. Right Atrium: The right atrium is mildly dilated. Aortic Valve: The aortic valve is trileaflet. The leaflets are thin with normal excursion. There is no aortic stenosis or regurgitation present. Mitral Valve: The mitral valve leaflets appear normal. There is trace of mitral regurgitation. Tricuspid Valve: The tricuspid valve leaflets are normal. There is mild tricuspid regurgitation. Pulmonic Valve: There is no evidence of pulmonic valve thickening. There is trace pulmonic regurgitation. Pericardium: There is no pericardial effusion. Aorta: The aorta appears normal. Venous: The inferior vena cava appears normal in size. Measurements Chambers 2D Name Value Normal Range IVSd (2D) 1.16 cm (0.6 - 1.1) LVPWd (2D) 1.19 cm (0.6 - 1.1) LVIDd (2D) 4.61 cm (3.7 - 5.6) LVIDs (2D) 3.17 cm (2 - 3.8) LV FS (2D) 31.2 % - EF Teichholz (2D) 59.02 % - Ao root diameter (2D) 2.85 cm (2 - 3.7) Volumes/Mass Name Value Normal Range LA ESV SP 4CH (A/L) 47.43 ml - LA ESV SP 2CH (A/L) 81.49 ml - LA ESV BP (A/L) 63.56 ml - LA ESV BP (A/L) index 33.45 ml/m2 - LA ESV SP 4CH (MOD) 40.85 ml - LA ESV SP 2CH (MOD) 76.91 ml - LA ESV BP (MOD) 56.95 ml - LA ESV BP (MOD) index 29.97 ml/m2 - Aortic Valve Name Value Normal Range AV Vmax 1.52 m/sec - AV VTI 25.38 cm - AV peak gradient 9.26 mmHg - AV mean gradient 5.12 mmHg - LVOT diameter 2.18 cm - LVOT Vmax 1.34 m/sec - LVOT VTI 20.19 cm - LVOT peak gradient 7.23 mmHg - LVOT mean gradient 2.75 mmHg - SV LVOT 75.66 ml - MATT (continuity Vmax) 3.31 cm2 - MATT (continuity VTI) 2.98 cm2 - Ascending Ao 2.83 cm - Mitral Valve Name Value Normal Range MV PHT 27.95 msec - MVA (PHT) 7.87 cm2 - Tricuspid Valve Name Value Normal Range TR Vmax 3.61 m/sec - TR peak gradient 52 mmHg - RAP 3 mmHg - RVSP 55 mmHg - IVC diameter 1.73 cm (1.2 - 2.3) Pulmonic Valve/Qp:Qs Name Value Normal Range PV Vmax 0.63 m/sec - PV peak gradient 2.39 mmHg - AR end-diastolic Vmax 1.35 m/sec - PV acceleration time 91.34 msec - NDUM: 06/25/20 1210 Amended Report Transthoracic Echocardiogram Indication: Endocarditis BP: 170/93 HR: 118 Conclusions *Global left ventricular systolic function is normal. *The estimated ejection fraction is 55-60%. *Mild concentric left ventricular hypertrophy is observed. *The right ventricular global systolic function is normal. *The right ventricle is mildly dilated. *The aortic valve is trileaflet. The leaflets are thin with normal excursion. There is no aortic stenosis or regurgitation present. *There is trace of mitral regurgitation. *There is mild tricuspid regurgitation. *no obvious vegatations noted on mitral or aortic valve or tricupid, if clinically indicated consider matteo Findings Left Ventricle: The left ventricular chamber size is normal. Mild concentric left ventricular hypertrophy is observed. Global left ventricular wall motion and contractility are within normal limits. Global left ventricular systolic function is normal. The estimated ejection fraction is 55-60%. Left Atrium: The left atrial chamber size is normal. Right Ventricle: The right ventricle is mildly dilated. The right ventricular global systolic function is normal. Right Atrium: The right atrium is mildly dilated. Aortic Valve: The aortic valve is trileaflet. The leaflets are thin with normal excursion. There is no aortic stenosis or regurgitation present. Mitral Valve: The mitral valve leaflets appear normal. There is trace of mitral regurgitation. Tricuspid Valve: The tricuspid valve leaflets are normal. There is mild tricuspid regurgitation. Pulmonic Valve: There is no evidence of pulmonic valve thickening. There is trace pulmonic regurgitation. Pericardium: There is no pericardial effusion. Aorta: The aorta appears normal. Venous: The inferior vena cava appears normal in size. Measurements Chambers 2D Name Value Normal Range IVSd (2D) 1.16 cm (0.6 - 1.1) LVPWd (2D) 1.19 cm (0.6 - 1.1) LVIDd (2D) 4.61 cm (3.7 - 5.6) LVIDs (2D) 3.17 cm (2 - 3.8) LV FS (2D) 31.2 % - EF Teichholz (2D) 59.02 % - Ao root diameter (2D) 2.85 cm (2 - 3.7) Volumes/Mass Name Value Normal Range LA ESV SP 4CH (A/L) 47.43 ml - LA ESV SP 2CH (A/L) 81.49 ml - LA ESV BP (A/L) 63.56 ml - LA ESV BP (A/L) index 33.45 ml/m2 - LA ESV SP 4CH (MOD) 40.85 ml - LA ESV SP 2CH (MOD) 76.91 ml - LA ESV BP (MOD) 56.95 ml - LA ESV BP (MOD) index 29.97 ml/m2 - Aortic Valve Name Value Normal Range AV Vmax 1.52 m/sec - AV VTI 25.38 cm - AV peak gradient 9.26 mmHg - AV mean gradient 5.12 mmHg - LVOT diameter 2.18 cm - LVOT Vmax 1.34 m/sec - LVOT VTI 20.19 cm - LVOT peak gradient 7.23 mmHg - LVOT mean gradient 2.75 mmHg - SV LVOT 75.66 ml - MATT (continuity Vmax) 3.31 cm2 - MATT (continuity VTI) 2.98 cm2 - Ascending Ao 2.83 cm - Mitral Valve Name Value Normal Range MV PHT 27.95 msec - MVA (PHT) 7.87 cm2 - Tricuspid Valve Name Value Normal Range TR Vmax 3.61 m/sec - TR peak gradient 52 mmHg - RAP 3 mmHg - RVSP 55 mmHg - IVC diameter 1.73 cm (1.2 - 2.3) Pulmonic Valve/Qp:Qs Name Value Normal Range PV Vmax 0.63 m/sec - PV peak gradient 2.39 mmHg - AR end-diastolic Vmax 1.35 m/sec - PV acceleration time 91.34 msec - Bishop/IV: Voiding Method Urinal IV Catheter Type [Left Peripheral IV Antecubital] IV Catheter Type [Right Peripheral IV Antecubital] Active Medications - Current Medications Current Medications: Generic Name Dose Route Start Last Admin Trade Name Freq PRN Reason Stop Dose Admin Acetaminophen 650 mg 06/23/20 03:36 06/26/20 05:51 Acetaminophen 325 Mg Tab PO 650 mg Q4H PRN Administration Pain MILD(1-3)/Fever >100.5/ISRAEL Hydromorphone HCl 0.25 mg 06/26/20 12:41 Hydromorphone 1 Mg/1 Ml Inj IV Q3H PRN Pain , Severe (7-10) Sodium Chloride 1,000 mls @ 75 mls/hr 06/23/20 03:45 06/26/20 09:41 Nacl 0.9% 1000 Ml IV 75 mls/hr DIRECT DEVONTE Administration Ceftriaxone Sodium 2 gm in 100 mls @ 200 mls/hr 06/25/20 14:00 06/26/20 09:41 Rocephin/Ns 2 Gm/100 Ml IV 200 mls/hr Q24HR DEVONTE Administration Protocol Magnesium Hydroxide 30 ml 06/23/20 03:36 Magnesium Hydroxide (Mom) Oral Liqd Udc PO Q4H PRN Constipation Ondansetron HCl 4 mg 06/23/20 03:36 Ondansetron 4 Mg/2 Ml Inj IV Q8H PRN Nausea And Vomiting Sodium Chloride 10 ml 06/23/20 10:00 06/26/20 09:42 Sodium Chloride 0.9% 10 Ml Flush Syringe IV 10 ml BID DEVONTE Administration Sodium Chloride 10 ml 06/23/20 03:36 Sodium Chloride 0.9% 10 Ml Flush Syringe IV PRN PRN LINE FLUSH
--- NOTE | 2020-06-26 14:00 | Cat Scan Report ---
CT HEAD/BRAIN WO CON INDICATION / CLINICAL INFORMATION: LEFT SIDED WEAKNESS. TECHNIQUE: All CT scans at this location are performed using CT dose reduction for ALARA by means of automated e xposure control. COMPARISON: None available. FINDINGS: The ventricular system is normal in size and configuration. No focal lesion or mass effect is seen. T here is no evidence of intracranial hemorrhage or acute major vessel occlusion. The calvarium is intact. There is opacification of multiple left middle and posterior ethmoid air alberto ls. The other paranasal sinuses and mastoid air cells are clear. IMPRESSION: 1. No acute intracranial abnormality. 2. Left ethmoid sinusitis. Signer Name: Jose Boswell MD Signed: 06/26/2020 1:55 PM Workstation Name: [id number]
--- NOTE | 2020-06-26 15:30 | Cat Scan Report ---
CT ANGIOGRAPHY OF THE CHEST WITH INTRAVENOUS CONTRAST AND MULTIPLANAR MIP RECONSTRUCTIONS INDICATION / CLINICAL INFORMATION: Respiratory distress. TECHNIQUE: Axial CT images were obtained after injection of 100 cc Omnipaque 350 IV contrast using CTA protocol. 3 plane MIP / 3D reconstructions were produced. All CT scans at this location are performed using CT dose reduction for ALARA by means of automated exposure control. COMPARISON: None available. FINDINGS: The timing of the bolus is suboptimal with poor opacification of the pulmonary arterial system bilate rally. No large central filling defect is seen. Evaluation of the peripheral pulmonary arteries is in adequate. The thoracic aorta is well-opacified without evidence of aneurysm or dissection. No coronar y artery abnormality is seen. There is mild to moderate bibasilar dependent atelectasis. The lungs are otherwise clear. There may b e a trace amount of left pleural fluid. No adenopathy. The visualized upper abdomen is unremarkable. No acute osseous abnormality is present. IMPRESSION: 1. Negative limited suboptimal examination for acute PTE. No large central embolus is seen. 2. Bibasilar dependent atelectasis. Signer Name: Jose Boswell MD Signed: 06/26/2020 3:26 PM Workstation Name: [id number]
[2020-06-27] MEDS: HYDROmorphone 1 MG/1 ML INJ IV PRN (07:49)
[2020-06-27] MEDS ORDERED: LORazepam 2 MG/ML VIAL IV STA (09:22)
--- NOTE | 2020-06-27 10:00 | Progress Note ---
Assessment and Plan Assessment and plan: 39-year-old -Luxembourger male with known history of HIV with unknown CD4 count noncompliant with antiretroviral therapy presents to the emergency room today complaining of fever, fatigue, generalized malaise and joint pains which has been ongoing for the past 2 days. He has also had some knee pain and shoulder pain. He denies any fall or trauma to these joints. He has been having difficulty ambulating secondary to the pain. He has also been having minimal shortness of breath. He denies any chest pain. Patient was diagnosed with HIV and septic arthritis about 5 years ago while in [place] . He subsequently had needle aspiration of the left knee at that time. Patient moved to [place] sometime in September 2019 and has not had any recent travel. He works from home and denies any sick contacts. He has not been on his medication since August when he moved to [place] as he has not had insurance established at his new job. Work-up today in the emergency room chest x-ray reveals: mild/early edema or atypical infectious/inflammatory process. Patient is admitted with pneumonia and will rule out COVID-19. Day#2 Patient has lots of pain Day #3 06/25/2020 Patient resting comfortably Patient uncooperative during MRI x2 Blood cultures-haemophilus influenza A positive in 2 out of 2 bottles 06/26: Remain septic at this time. Continue antibiotic therapy. Obtain imaging studies as updated. With the patient's permission discussed clinical care with the mom. We will also request for records from [facility] in [place]. 06/27: Xanax ordered for Patient to be able to obtain MRI, Continue abx, await PT/OT Sepsis with multifactorial etiology primarily atypical pneumonia but rule out septic joint. Imaging studies pending we will place a mid line for IV access. To be able to obtain the MRI as ordered by ID. Left upper and lower extremity hemiplegia and tenderness Likely secondary to infectious process nevertheless will rule out CVA. PT OT evaluate and treat. Secondary coagulopathy Rule out pulmonary embolism and also evaluate for DVTs lower extremities Atypical pneumonia secondary to influenza A Current Visit: Yes Status: Acute Plan to address problem: Patient initiated on ceftriaxone HIV (human immunodeficiency virus infection) Current Visit: Yes Status: Acute Plan to address problem: CD4 count is unknown. Patient has not been antiretroviral agents for 9 months. Resume home medication Suspected COVID-19 virus infection Current Visit: Yes Status: Acute Plan to address problem: Patient negative for Covi negative left shoulder pain and left hip pain Patient started on ceftriaxone . Vancomycin is discontinued septic arthritis to be ruled out patient refusing underlying MRI CAT scan of the abdomen DVT prophylaxis Current Visit: Yes Status: Acute Plan to address problem: hepatin Plan of care discussed with the patient in detail also discussed with patient's mom. History Interval history: Patient seen and examined this morning w still with weakness on the left side upper and lower extremity with some tenderness. low-grade temperature noted. Hospitalist Physical - Physical exam Narrative exam: VITAL SIGNS: Reviewed. GENERAL: The patient appears normally developed, Vital signs as documented. HEAD: No signs of head trauma. EYES: Pupils are equal. Extraocular motions intact. EARS: Hearing grossly intact. MOUTH: Oropharynx is normal. NECK: No adenopathy, no JVD. CHEST: Chest with clear breath sounds bilaterally. No wheezes, rales, or rhonchi. CARDIAC: Regular rate and rhythm. S1 and S2, without murmurs, gallops, or rubs. VASCULAR: No Edema. Peripheral pulses normal and equal in all extremities. ABDOMEN: Soft, non tender and non distended. No rebound or guarding, and no masses palpated. Bowel Sounds normal. MUSCULOSKELETAL: Left shoulder with limited range of motion and left hip significant pain . Extremities without clubbing, cyanosis or edema. NEUROLOGIC EXAM: Alert and oriented x 3 No focal sensory or strength deficits. Speech normal. Follows commands. PSYCHIATRIC: Mood normal. SKIN: detail exam as documented in skin assessment - Constitutional Vitals: Temp Pulse Resp BP Pulse Ox 98.9 F 113 H 20 144/96 98 06/27/20 06:15 06/27/20 06:15 06/27/20 07:49 06/27/20 06:15 06/27/20 06:15 General appearance: Present: no acute distress, well-nourished Results - Labs CBC & Chem 7: 06/26/20 03:57 06/26/20 03:57 Labs: Laboratory Last Values WBC 8.4 K/mm3 (4.5-11.0) 06/26/20 03:57 RBC 3.09 M/mm3 (3.65-5.03) L 06/26/20 03:57 Hgb 9.2 gm/dl (11.8-15.2) L 06/26/20 03:57 Hct 27.1 % (35.5-45.6) L 06/26/20 03:57 MCV 88 fl (84-94) 06/26/20 03:57 MCH 30 pg (28-32) 06/26/20 03:57 MCHC 34 % (32-34) 06/26/20 03:57 RDW 14.4 % (13.2-15.2) 06/26/20 03:57 Plt Count 350 K/mm3 (140-440) 06/26/20 03:57 Lymph % (Auto) 24.7 % (13.4-35.0) 06/26/20 03:57 [place] % (Auto) 14.0 % (0.0-7.3) H 06/26/20 03:57 Eos % (Auto) 0.1 % (0.0-4.3) 06/26/20 03:57 Baso % (Auto) 0.1 % (0.0-1.8) 06/26/20 03:57 Lymph # (Auto) 2.1 K/mm3 (1.2-5.4) 06/26/20 03:57 [place] # (Auto) 1.2 K/mm3 (0.0-0.8) H 06/26/20 03:57 Eos # (Auto) 0.0 K/mm3 (0.0-0.4) 06/26/20 03:57 Baso # (Auto) 0.0 K/mm3 (0.0-0.1) 06/26/20 03:57 Seg Neutrophils % 61.1 % (40.0-70.0) 06/26/20 03:57 Seg Neutrophils # 5.1 K/mm3 (1.8-7.7) 06/26/20 03:57 PT 13.4 Sec. (12.2-14.9) 06/24/20 04:40 INR 1.04 (0.87-1.13) 06/24/20 04:40 D-Dimer 1312.19 ng/mlDDU (0-234) H 06/23/20 03:25 Sodium 131 mmol/L (137-145) L D 06/26/20 03:57 Potassium 3.6 mmol/L (3.6-5.0) 06/26/20 03:57 Chloride 97.4 mmol/L (98-107) L 06/26/20 03:57 Carbon Dioxide 30 mmol/L (22-30) 06/26/20 03:57 Anion Gap 7 mmol/L 06/26/20 03:57 BUN 8 mg/dL (9-20) L 06/26/20 03:57 Creatinine 0.7 mg/dL (0.8-1.3) L 06/26/20 03:57 Estimated GFR > 60 ml/min 06/26/20 03:57 BUN/Creatinine Ratio 11 % 06/26/20 03:57 Glucose 98 mg/dL (75-100) 06/26/20 03:57 Calcium 8.2 mg/dL (8.4-10.2) L 06/26/20 03:57 Total Bilirubin 0.40 mg/dL (0.1-1.2) 06/26/20 03:57 AST 9 units/L (5-40) 06/26/20 03:57 ALT 7 units/L (7-56) 06/26/20 03:57 Alkaline Phosphatase 54 units/L (35-129) 06/26/20 03:57 Total Creatine Kinase 24 units/L (55-170) L 06/23/20 00:12 Total Protein 8.3 g/dL (6.3-8.2) H 06/26/20 03:57 Albumin 2.1 g/dL (3.9-5) L 06/26/20 03:57 Albumin/Globulin Ratio 0.3 % 06/26/20 03:57 Lipase 15 units/L (13-60) 06/23/20 00:12 Procalcitonin 1.65 ng/mL (<0.15) 06/23/20 03:25 Urine Color Yellow (Yellow) 06/23/20 01:38 Urine Turbidity Clear (Clear) 06/23/20 01:38 Urine pH 5.0 (5.0-7.0) 06/23/20 01:38 Ur Specific [place] 1.020 (1.003-1.030) 06/23/20 01:38 Urine Protein 100 mg/dl mg/dL (Negative) 06/23/20 01:38 Urine Glucose (UA) Neg mg/dL (Negative) 06/23/20 01:38 Urine Ketones Neg mg/dL (Negative) 06/23/20 01:38 Urine Blood Lg (Negative) 06/23/20 01:38 Urine Nitrite Neg (Negative) 06/23/20 01:38 Urine Bilirubin Neg (Negative) 06/23/20 01:38 Urine Urobilinogen 4.0 mg/dL (<2.0) 06/23/20 01:38 Ur Leukocyte Esterase Neg (Negative) 06/23/20 01:38 Urine WBC (Auto) 12.0 /HPF (0.0-6.0) H 06/23/20 01:38 Urine RBC (Auto) 46.0 /HPF (0.0-6.0) 06/23/20 01:38 U Epithel Cells (Auto) 1.0 /HPF (0-13.0) 06/23/20 01:38 Urine Mucus Few /HPF 06/23/20 01:38 Coronavirus (PCR) Negative (Negative) 06/23/20 Unknown Microbiology: Microbiology 06/25/20 14:45 Peripheral/Venous Blood Culture - Preliminary NO GROWTH AFTER 24 HOURS - Diagnostic Impressions Diagnostic Impressions: Echocardiogram 06/24/20 14:54 Transthoracic Echocardiogram Indication: Endocarditis BP: 170/93 HR: 118 Conclusions *Global left ventricular systolic function is normal. *The estimated ejection fraction is 55-60%. *Mild concentric left ventricular hypertrophy is observed. *The right ventricular global systolic function is normal. *The right ventricle is mildly dilated. *The aortic valve is trileaflet. The leaflets are thin with normal excursion. There is no aortic stenosis or regurgitation present. *There is trace of mitral regurgitation. *There is mild tricuspid regurgitation. Findings Left Ventricle: The left ventricular chamber size is normal. Mild concentric left ventricular hypertrophy is observed. Global left ventricular wall motion and contractility are within normal limits. Global left ventricular systolic function is normal. The estimated ejection fraction is 55-60%. Left Atrium: The left atrial chamber size is normal. Right Ventricle: The right ventricle is mildly dilated. The right ventricular global systolic function is normal. Right Atrium: The right atrium is mildly dilated. Aortic Valve: The aortic valve is trileaflet. The leaflets are thin with normal excursion. There is no aortic stenosis or regurgitation present. Mitral Valve: The mitral valve leaflets appear normal. There is trace of mitral regurgitation. Tricuspid Valve: The tricuspid valve leaflets are normal. There is mild tricuspid regurgitation. Pulmonic Valve: There is no evidence of pulmonic valve thickening. There is trace pulmonic regurgitation. Pericardium: There is no pericardial effusion. Aorta: The aorta appears normal. Venous: The inferior vena cava appears normal in size. Measurements Chambers 2D Name Value Normal Range IVSd (2D) 1.16 cm (0.6 - 1.1) LVPWd (2D) 1.19 cm (0.6 - 1.1) LVIDd (2D) 4.61 cm (3.7 - 5.6) LVIDs (2D) 3.17 cm (2 - 3.8) LV FS (2D) 31.2 % - EF Teichholz (2D) 59.02 % - Ao root diameter (2D) 2.85 cm (2 - 3.7) Volumes/Mass Name Value Normal Range LA ESV SP 4CH (A/L) 47.43 ml - LA ESV SP 2CH (A/L) 81.49 ml - LA ESV BP (A/L) 63.56 ml - LA ESV BP (A/L) index 33.45 ml/m2 - LA ESV SP 4CH (MOD) 40.85 ml - LA ESV SP 2CH (MOD) 76.91 ml - LA ESV BP (MOD) 56.95 ml - LA ESV BP (MOD) index 29.97 ml/m2 - Aortic Valve Name Value Normal Range AV Vmax 1.52 m/sec - AV VTI 25.38 cm - AV peak gradient 9.26 mmHg - AV mean gradient 5.12 mmHg - LVOT diameter 2.18 cm - LVOT Vmax 1.34 m/sec - LVOT VTI 20.19 cm - LVOT peak gradient 7.23 mmHg - LVOT mean gradient 2.75 mmHg - SV LVOT 75.66 ml - MATT (continuity Vmax) 3.31 cm2 - MATT (continuity VTI) 2.98 cm2 - Ascending Ao 2.83 cm - Mitral Valve Name Value Normal Range MV PHT 27.95 msec - MVA (PHT) 7.87 cm2 - Tricuspid Valve Name Value Normal Range TR Vmax 3.61 m/sec - TR peak gradient 52 mmHg - RAP 3 mmHg - RVSP 55 mmHg - IVC diameter 1.73 cm (1.2 - 2.3) Pulmonic Valve/Qp:Qs Name Value Normal Range PV Vmax 0.63 m/sec - PV peak gradient 2.39 mmHg - MD end-diastolic Vmax 1.35 m/sec - PV acceleration time 91.34 msec - NDUM: 06/25/20 1210 Amended Report Transthoracic Echocardiogram Indication: Endocarditis BP: 170/93 HR: 118 Conclusions *Global left ventricular systolic function is normal. *The estimated ejection fraction is 55-60%. *Mild concentric left ventricular hypertrophy is observed. *The right ventricular global systolic function is normal. *The right ventricle is mildly dilated. *The aortic valve is trileaflet. The leaflets are thin with normal excursion. There is no aortic stenosis or regurgitation present. *There is trace of mitral regurgitation. *There is mild tricuspid regurgitation. *no obvious vegatations noted on mitral or aortic valve or tricupid, if clinically indicated consider matteo Findings Left Ventricle: The left ventricular chamber size is normal. Mild concentric left ventricular hypertrophy is observed. Global left ventricular wall motion and contractility are within normal limits. Global left ventricular systolic function is normal. The estimated ejection fraction is 55-60%. Left Atrium: The left atrial chamber size is normal. Right Ventricle: The right ventricle is mildly dilated. The right ventricular global systolic function is normal. Right Atrium: The right atrium is mildly dilated. Aortic Valve: The aortic valve is trileaflet. The leaflets are thin with normal excursion. There is no aortic stenosis or regurgitation present. Mitral Valve: The mitral valve leaflets appear normal. There is trace of mitral regurgitation. Tricuspid Valve: The tricuspid valve leaflets are normal. There is mild tricuspid regurgitation. Pulmonic Valve: There is no evidence of pulmonic valve thickening. There is trace pulmonic regurgitation. Pericardium: There is no pericardial effusion. Aorta: The aorta appears normal. Venous: The inferior vena cava appears normal in size. Measurements Chambers 2D Name Value Normal Range IVSd (2D) 1.16 cm (0.6 - 1.1) LVPWd (2D) 1.19 cm (0.6 - 1.1) LVIDd (2D) 4.61 cm (3.7 - 5.6) LVIDs (2D) 3.17 cm (2 - 3.8) LV FS (2D) 31.2 % - EF Teichholz (2D) 59.02 % - Ao root diameter (2D) 2.85 cm (2 - 3.7) Volumes/Mass Name Value Normal Range LA ESV SP 4CH (A/L) 47.43 ml - LA ESV SP 2CH (A/L) 81.49 ml - LA ESV BP (A/L) 63.56 ml - LA ESV BP (A/L) index 33.45 ml/m2 - LA ESV SP 4CH (MOD) 40.85 ml - LA ESV SP 2CH (MOD) 76.91 ml - LA ESV BP (MOD) 56.95 ml - LA ESV BP (MOD) index 29.97 ml/m2 - Aortic Valve Name Value Normal Range AV Vmax 1.52 m/sec - AV VTI 25.38 cm - AV peak gradient 9.26 mmHg - AV mean gradient 5.12 mmHg - LVOT diameter 2.18 cm - LVOT Vmax 1.34 m/sec - LVOT VTI 20.19 cm - LVOT peak gradient 7.23 mmHg - LVOT mean gradient 2.75 mmHg - SV LVOT 75.66 ml - MATT (continuity Vmax) 3.31 cm2 - MATT (continuity VTI) 2.98 cm2 - Ascending Ao 2.83 cm - Mitral Valve Name Value Normal Range MV PHT 27.95 msec - MVA (PHT) 7.87 cm2 - Tricuspid Valve Name Value Normal Range TR Vmax 3.61 m/sec - TR peak gradient 52 mmHg - RAP 3 mmHg - RVSP 55 mmHg - IVC diameter 1.73 cm (1.2 - 2.3) Pulmonic Valve/Qp:Qs Name Value Normal Range PV Vmax 0.63 m/sec - PV peak gradient 2.39 mmHg - MD end-diastolic Vmax 1.35 m/sec - PV acceleration time 91.34 msec - Bishop/IV: Voiding Method Urinal IV Catheter Type [Left Peripheral IV Antecubital] IV Catheter Type [Right Peripheral IV Antecubital] Active Medications - Current Medications Current Medications: Generic Name Dose Route Start Last Admin Trade Name Freq PRN Reason Stop Dose Admin Acetaminophen 650 mg 06/23/20 03:36 06/26/20 23:13 Acetaminophen 325 Mg Tab PO 650 mg Q4H PRN Administration Pain MILD(1-3)/Fever >100.5/ISRAEL Hydromorphone HCl 0.25 mg 06/26/20 12:41 06/27/20 07:49 Hydromorphone 1 Mg/1 Ml Inj IV 0.25 mg Q3H PRN Administration Pain , Severe (7-10) Sodium Chloride 1,000 mls @ 75 mls/hr 06/23/20 03:45 06/26/20 09:41 Nacl 0.9% 1000 Ml IV 75 mls/hr DIRECT DEVONTE Administration Ceftriaxone Sodium 2 gm in 100 mls @ 200 mls/hr 06/25/20 14:00 06/26/20 09:41 Rocephin/Ns 2 Gm/100 Ml IV 200 mls/hr Q24HR DEVONTE Administration Protocol Magnesium Hydroxide 30 ml 06/23/20 03:36 Magnesium Hydroxide (Mom) Oral Liqd Udc PO Q4H PRN Constipation Miscellaneous Medication 1 tab 06/26/20 12:45 Symtuza [phone] Mg Tab PO DAILY DEVONTE Ondansetron HCl 4 mg 06/23/20 03:36 Ondansetron 4 Mg/2 Ml Inj IV Q8H PRN Nausea And Vomiting Sodium Chloride 10 ml 06/23/20 10:00 06/26/20 21:24 Sodium Chloride 0.9% 10 Ml Flush Syringe IV 10 ml BID DEVONTE Administration Sodium Chloride 10 ml 06/23/20 03:36 Sodium Chloride 0.9% 10 Ml Flush Syringe IV PRN PRN LINE FLUSH
--- NOTE | 2020-06-27 12:48 | Magnetic Resonance Report ---
MR LE joint LT wo/w con INDICATION: left hip, septic arthritis. TECHNIQUE: Multiplanar, multisequence MR images were obtained. COMPARISON: Left hip x-ray 06/24/2020 FINDINGS: This study was performed with and without IV contrast. There is abnormal hypointense T1 signal intens ity throughout the pelvis without abnormal enhancement or abnormal T2 signal intensity. There is no M R evidence for osteomyelitis. Moderate left hip effusion is present with moderate left hip pericapsular soft tissue edema and postc ontrast enhancement worrisome for septic arthritis. Diffuse subcutaneous edema is seen throughout the pelvis and left hip with enhancement on postcontrast images characteristic for for cellulitis. IMPRESSION: 1. Probable early left hip septic arthritis with hip effusion and pericapsular edema and enhancement. Recommend left hip aspiration. 2. No MR evidence for osteomyelitis. 3. Decreased T1 signal intensity throughout the pelvis could represent underlying anemia or lymphopro liferative process. Please correlate clinically Signer Name: Luc Andrea MD Signed: 06/27/2020 12:44 PM Workstation Name: [id number]
--- NOTE | 2020-06-27 12:52 | Magnetic Resonance Report ---
MRI LEFT SHOULDER WITHOUT AND WITH CONTRAST INDICATION: left shoulder, septic arthritis. COMPARISON: None available. TECHNIQUE: Multisequence, multiplanar images were obtained. FINDINGS: ACROMIOCLAVICULAR JOINT: Small moderate joint effusion with moderate amount of surrounding subcutaneo us soft tissue edema and enhancement worrisome for septic arthritis ACROMION: Type II SUPRASPINATUS: No significant abnormality. INFRASPINATUS: No significant abnormality. SUBSCAPULARIS: No significant abnormality. BICEPS TENDON, LONG HEAD: No significant abnormality. SUBACROMIAL/SUBDELTOID SPACE: No significant abnormality. GLENOID LABRUM: No significant abnormality. ARTICULAR CARTILAGE: No significant abnormality. JOINT SPACE AND CAPSULE: No significant abnormality. BONES: No significant bone marrow edema. No fracture. Diffuse hypointense T1 signal abnormality thro ughout the scapula and acromion could represent underlying anemia. There is no abnormal signal intens ity within the left humeral head epiphysis. SUBCUTANEOUS SOFT TISSUES: No significant abnormality. ADDITIONAL FINDINGS: None. IMPRESSION: 1. Probable early septic arthritis of left AC joint with surrounding cellulitis. No drainable fluid c ollection 2. Decreased T1 signal intensity throughout scapula could represent underlying anemia. Please correla te clinically Signer Name: Luc Andrea MD Signed: 06/27/2020 12:47 PM Workstation Name: [id number]
[2020-06-27] MEDS: cefTRIAXone/NS 2 GM/100 ML 2 GM/100 ML BAG IV SCH (15:38)
[2020-06-28] MEDS: ACETAMINOPHEN 325 MG TAB PO PRN (05:36)
[2020-06-28 06:31] LABS: Hemoglobin 9.2 gm/dl (11.8-15.2); Mean Corpuscular HGB Conc 34 % (32-34); Mean Corpuscular Volume 88 fl (84-94); Platelet Count 512 K/mm3 (140-440); Red Blood Count 3.07 M/mm3 (3.65-5.03); Red Cell Distribution Width 14.8 % (13.2-15.2)
[2020-06-28 06:43] LABS: Blood Urea Nitrogen 12 mg/dL (9-20); Calcium 8.3 mg/dL (8.4-10.2); Hemolysis Index 0
[2020-06-28 06:47] LABS: BUN/Creatinine Ratio 17
[2020-06-28] MEDS: HYDROmorphone 1 MG/1 ML INJ IV PRN ×5 (08:25→23:17)
[2020-06-28] MEDS: cefTRIAXone/NS 2 GM/100 ML 2 GM/100 ML BAG IV SCH (10:36)
[2020-06-28] MEDS: SODIUM CHLORIDE 0.9% 1000 ML 1,000 ML IV SCH (10:37)
--- NOTE | 2020-06-28 11:59 | Progress Note ---
Assessment and Plan Assessment and plan: 39-year-old -Turkish male with known history of HIV with unknown CD4 count noncompliant with antiretroviral therapy presents to the emergency room today complaining of fever, fatigue, generalized malaise and joint pains which has been ongoing for the past 2 days. He has also had some knee pain and shoulder pain. He denies any fall or trauma to these joints. He has been having difficulty ambulating secondary to the pain. He has also been having minimal shortness of breath. He denies any chest pain. Patient was diagnosed with HIV and septic arthritis about 5 years ago while in [place] . He subsequently had needle aspiration of the left knee at that time. Patient moved to [place] sometime in September 2019 and has not had any recent travel. He works from home and denies any sick contacts. He has not been on his medication since August when he moved to [place] as he has not had insurance established at his new job. Work-up today in the emergency room chest x-ray reveals: mild/early edema or atypical infectious/inflammatory process. Patient is admitted with pneumonia and will rule out COVID-19. Day#2 Patient has lots of pain Day #3 06/25/2020 Patient resting comfortably Patient uncooperative during MRI x2 Blood cultures-haemophilus influenza A positive in 2 out of 2 bottles 06/26: Remain septic at this time. Continue antibiotic therapy. Obtain imaging studies as updated. With the patient's permission discussed clinical care with the mom. We will also request for records from [facility] in [place]. 06/27: Xanax ordered for Patient to be able to obtain MRI, Continue abx, await PT/OT 06/28: Patient clinically improving. MRI reviewed shows septic joint. Considering patient's clinical improvement will still awaiting orthopedic surgeon consult of reconsulted again. Continue current antibiotic. If patient continues to have persistent fever may need to be transferred if orthopedic surgeon is unable to see the patient 24 hours. Sepsis with multifactorial etiology primarily atypical pneumonia and septic joint. Imaging studies pending we will place a mid line for IV access. To be able to obtain the MRI as ordered by ID. Left upper and lower extremity hemiplegia and tenderness Likely secondary to infectious process nevertheless will rule out CVA. PT OT evaluate and treat. Secondary coagulopathy Rule out pulmonary embolism and also evaluate for DVTs lower extremities Atypical pneumonia secondary to influenza A Current Visit: Yes Status: Acute Plan to address problem: Patient initiated on ceftriaxone HIV (human immunodeficiency virus infection) Current Visit: Yes Status: Acute Plan to address problem: CD4 count is unknown. Patient has not been antiretroviral agents for 9 months. Resume home medication Suspected COVID-19 virus infection Current Visit: Yes Status: Acute Plan to address problem: Patient negative for Covi negative left shoulder pain and left hip pain Patient started on ceftriaxone . Vancomycin is discontinued septic arthritis to be ruled out patient refusing underlying MRI CAT scan of the abdomen DVT prophylaxis Current Visit: Yes Status: Acute Plan to address problem: hepatin Plan of care discussed with the patient in detail also discussed with patient's mom. History Interval history: Patient seen and examined this morning, still with intermittent fever, REPORTS improvement in symptoms Hospitalist Physical - Physical exam Narrative exam: VITAL SIGNS: Reviewed. GENERAL: The patient appears normally developed, Vital signs as documented. HEAD: No signs of head trauma. EYES: Pupils are equal. Extraocular motions intact. EARS: Hearing grossly intact. MOUTH: Oropharynx is normal. NECK: No adenopathy, no JVD. CHEST: Chest with clear breath sounds bilaterally. No wheezes, rales, or rhonchi. CARDIAC: Regular rate and rhythm. S1 and S2, without murmurs, gallops, or rubs. VASCULAR: No Edema. Peripheral pulses normal and equal in all extremities. ABDOMEN: Soft, non tender and non distended. No rebound or guarding, and no masses palpated. Bowel Sounds normal. MUSCULOSKELETAL:improve, Left shoulder with limited range of motion and left hip significant pain . Extremities without clubbing, cyanosis or edema. NEUROLOGIC EXAM: Alert and oriented x 3 No focal sensory or strength deficits. Speech normal. Follows commands. PSYCHIATRIC: Mood normal. SKIN: detail exam as documented in skin assessment - Constitutional Vitals: Temp Pulse Resp BP Pulse Ox 100.5 F H 116 H 18 131/81 98 06/28/20 04:36 06/28/20 04:36 06/28/20 06:36 06/28/20 04:36 06/28/20 04:36 General appearance: Present: no acute distress, well-nourished Results - Labs CBC & Chem 7: 06/28/20 06:03 06/28/20 06:03 Labs: Laboratory Last Values WBC 7.1 K/mm3 (4.5-11.0) 06/28/20 06:03 RBC 3.07 M/mm3 (3.65-5.03) L 06/28/20 06:03 Hgb 9.2 gm/dl (11.8-15.2) L 06/28/20 06:03 Hct 27.0 % (35.5-45.6) L 06/28/20 06:03 MCV 88 fl (84-94) 06/28/20 06:03 MCH 30 pg (28-32) 06/28/20 06:03 MCHC 34 % (32-34) 06/28/20 06:03 RDW 14.8 % (13.2-15.2) 06/28/20 06:03 Plt Count 512 K/mm3 (140-440) H 06/28/20 06:03 Lymph % (Auto) 24.7 % (13.4-35.0) 06/26/20 03:57 [place] % (Auto) 14.0 % (0.0-7.3) H 06/26/20 03:57 Eos % (Auto) 0.1 % (0.0-4.3) 06/26/20 03:57 Baso % (Auto) 0.1 % (0.0-1.8) 06/26/20 03:57 Lymph # (Auto) 2.1 K/mm3 (1.2-5.4) 06/26/20 03:57 Dodge # (Auto) 1.2 K/mm3 (0.0-0.8) H 06/26/20 03:57 Eos # (Auto) 0.0 K/mm3 (0.0-0.4) 06/26/20 03:57 Baso # (Auto) 0.0 K/mm3 (0.0-0.1) 06/26/20 03:57 Seg Neutrophils % 61.1 % (40.0-70.0) 06/26/20 03:57 Seg Neutrophils # 5.1 K/mm3 (1.8-7.7) 06/26/20 03:57 PT 13.4 Sec. (12.2-14.9) 06/24/20 04:40 INR 1.04 (0.87-1.13) 06/24/20 04:40 D-Dimer 1312.19 ng/mlDDU (0-234) H 06/23/20 03:25 Sodium 131 mmol/L (137-145) L 06/28/20 06:03 Potassium 3.8 mmol/L (3.6-5.0) 06/28/20 06:03 Chloride 97.0 mmol/L (98-107) L 06/28/20 06:03 Carbon Dioxide 30 mmol/L (22-30) 06/28/20 06:03 Anion Gap 8 mmol/L 06/28/20 06:03 BUN 12 mg/dL (9-20) 06/28/20 06:03 Creatinine 0.7 mg/dL (0.8-1.3) L 06/28/20 06:03 Estimated GFR > 60 ml/min 06/28/20 06:03 BUN/Creatinine Ratio 17 % 06/28/20 06:03 Glucose 94 mg/dL (75-100) 06/28/20 06:03 Calcium 8.3 mg/dL (8.4-10.2) L 06/28/20 06:03 Total Bilirubin 0.40 mg/dL (0.1-1.2) 06/26/20 03:57 AST 9 units/L (5-40) 06/26/20 03:57 ALT 7 units/L (7-56) 06/26/20 03:57 Alkaline Phosphatase 54 units/L (35-129) 06/26/20 03:57 Total Creatine Kinase 24 units/L (55-170) L 06/23/20 00:12 Total Protein 8.3 g/dL (6.3-8.2) H 06/26/20 03:57 Albumin 2.1 g/dL (3.9-5) L 06/26/20 03:57 Albumin/Globulin Ratio 0.3 % 06/26/20 03:57 Lipase 15 units/L (13-60) 06/23/20 00:12 Procalcitonin 1.65 ng/mL (<0.15) 06/23/20 03:25 Urine Color Yellow (Yellow) 06/23/20 01:38 Urine Turbidity Clear (Clear) 06/23/20 01:38 Urine pH 5.0 (5.0-7.0) 06/23/20 01:38 Ur Specific [place] 1.020 (1.003-1.030) 06/23/20 01:38 Urine Protein 100 mg/dl mg/dL (Negative) 06/23/20 01:38 Urine Glucose (UA) Neg mg/dL (Negative) 06/23/20 01:38 Urine Ketones Neg mg/dL (Negative) 06/23/20 01:38 Urine Blood Lg (Negative) 06/23/20 01:38 Urine Nitrite Neg (Negative) 06/23/20 01:38 Urine Bilirubin Neg (Negative) 06/23/20 01:38 Urine Urobilinogen 4.0 mg/dL (<2.0) 06/23/20 01:38 Ur Leukocyte Esterase Neg (Negative) 06/23/20 01:38 Urine WBC (Auto) 12.0 /HPF (0.0-6.0) H 06/23/20 01:38 Urine RBC (Auto) 46.0 /HPF (0.0-6.0) 06/23/20 01:38 U Epithel Cells (Auto) 1.0 /HPF (0-13.0) 06/23/20 01:38 Urine Mucus Few /HPF 06/23/20 01:38 Coronavirus (PCR) Negative (Negative) 06/23/20 Unknown Microbiology: Microbiology 06/25/20 14:45 Peripheral/Venous Blood Culture - Preliminary NO GROWTH AFTER 48 HOURS 06/23/20 01:38 Urine,Clean Catch Urine Culture - Final - Diagnostic Impressions Diagnostic Impressions: Echocardiogram 06/24/20 14:54 Transthoracic Echocardiogram Indication: Endocarditis BP: 170/93 HR: 118 Conclusions *Global left ventricular systolic function is normal. *The estimated ejection fraction is 55-60%. *Mild concentric left ventricular hypertrophy is observed. *The right ventricular global systolic function is normal. *The right ventricle is mildly dilated. *The aortic valve is trileaflet. The leaflets are thin with normal excursion. There is no aortic stenosis or regurgitation present. *There is trace of mitral regurgitation. *There is mild tricuspid regurgitation. Findings Left Ventricle: The left ventricular chamber size is normal. Mild concentric left ventricular hypertrophy is observed. Global left ventricular wall motion and contractility are within normal limits. Global left ventricular systolic function is normal. The estimated ejection fraction is 55-60%. Left Atrium: The left atrial chamber size is normal. Right Ventricle: The right ventricle is mildly dilated. The right ventricular global systolic function is normal. Right Atrium: The right atrium is mildly dilated. Aortic Valve: The aortic valve is trileaflet. The leaflets are thin with normal excursion. There is no aortic stenosis or regurgitation present. Mitral Valve: The mitral valve leaflets appear normal. There is trace of mitral regurgitation. Tricuspid Valve: The tricuspid valve leaflets are normal. There is mild tricuspid regurgitation. Pulmonic Valve: There is no evidence of pulmonic valve thickening. There is trace pulmonic regurgitation. Pericardium: There is no pericardial effusion. Aorta: The aorta appears normal. Venous: The inferior vena cava appears normal in size. Measurements Chambers 2D Name Value Normal Range IVSd (2D) 1.16 cm (0.6 - 1.1) LVPWd (2D) 1.19 cm (0.6 - 1.1) LVIDd (2D) 4.61 cm (3.7 - 5.6) LVIDs (2D) 3.17 cm (2 - 3.8) LV FS (2D) 31.2 % - EF Teichholz (2D) 59.02 % - Ao root diameter (2D) 2.85 cm (2 - 3.7) Volumes/Mass Name Value Normal Range LA ESV SP 4CH (A/L) 47.43 ml - LA ESV SP 2CH (A/L) 81.49 ml - LA ESV BP (A/L) 63.56 ml - LA ESV BP (A/L) index 33.45 ml/m2 - LA ESV SP 4CH (MOD) 40.85 ml - LA ESV SP 2CH (MOD) 76.91 ml - LA ESV BP (MOD) 56.95 ml - LA ESV BP (MOD) index 29.97 ml/m2 - Aortic Valve Name Value Normal Range AV Vmax 1.52 m/sec - AV VTI 25.38 cm - AV peak gradient 9.26 mmHg - AV mean gradient 5.12 mmHg - LVOT diameter 2.18 cm - LVOT Vmax 1.34 m/sec - LVOT VTI 20.19 cm - LVOT peak gradient 7.23 mmHg - LVOT mean gradient 2.75 mmHg - SV LVOT 75.66 ml - MATT (continuity Vmax) 3.31 cm2 - MATT (continuity VTI) 2.98 cm2 - Ascending Ao 2.83 cm - Mitral Valve Name Value Normal Range MV PHT 27.95 msec - MVA (PHT) 7.87 cm2 - Tricuspid Valve Name Value Normal Range TR Vmax 3.61 m/sec - TR peak gradient 52 mmHg - RAP 3 mmHg - RVSP 55 mmHg - IVC diameter 1.73 cm (1.2 - 2.3) Pulmonic Valve/Qp:Qs Name Value Normal Range PV Vmax 0.63 m/sec - PV peak gradient 2.39 mmHg - OH end-diastolic Vmax 1.35 m/sec - PV acceleration time 91.34 msec - NDUM: 06/25/20 1210 Amended Report Transthoracic Echocardiogram Indication: Endocarditis BP: 170/93 HR: 118 Conclusions *Global left ventricular systolic function is normal. *The estimated ejection fraction is 55-60%. *Mild concentric left ventricular hypertrophy is observed. *The right ventricular global systolic function is normal. *The right ventricle is mildly dilated. *The aortic valve is trileaflet. The leaflets are thin with normal excursion. There is no aortic stenosis or regurgitation present. *There is trace of mitral regurgitation. *There is mild tricuspid regurgitation. *no obvious vegatations noted on mitral or aortic valve or tricupid, if clinically indicated consider matteo Findings Left Ventricle: The left ventricular chamber size is normal. Mild concentric left ventricular hypertrophy is observed. Global left ventricular wall motion and contractility are within normal limits. Global left ventricular systolic function is normal. The estimated ejection fraction is 55-60%. Left Atrium: The left atrial chamber size is normal. Right Ventricle: The right ventricle is mildly dilated. The right ventricular global systolic function is normal. Right Atrium: The right atrium is mildly dilated. Aortic Valve: The aortic valve is trileaflet. The leaflets are thin with normal excursion. There is no aortic stenosis or regurgitation present. Mitral Valve: The mitral valve leaflets appear normal. There is trace of mitral regurgitation. Tricuspid Valve: The tricuspid valve leaflets are normal. There is mild tricuspid regurgitation. Pulmonic Valve: There is no evidence of pulmonic valve thickening. There is trace pulmonic regurgitation. Pericardium: There is no pericardial effusion. Aorta: The aorta appears normal. Venous: The inferior vena cava appears normal in size. Measurements Chambers 2D Name Value Normal Range IVSd (2D) 1.16 cm (0.6 - 1.1) LVPWd (2D) 1.19 cm (0.6 - 1.1) LVIDd (2D) 4.61 cm (3.7 - 5.6) LVIDs (2D) 3.17 cm (2 - 3.8) LV FS (2D) 31.2 % - EF Teichholz (2D) 59.02 % - Ao root diameter (2D) 2.85 cm (2 - 3.7) Volumes/Mass Name Value Normal Range LA ESV SP 4CH (A/L) 47.43 ml - LA ESV SP 2CH (A/L) 81.49 ml - LA ESV BP (A/L) 63.56 ml - LA ESV BP (A/L) index 33.45 ml/m2 - LA ESV SP 4CH (MOD) 40.85 ml - LA ESV SP 2CH (MOD) 76.91 ml - LA ESV BP (MOD) 56.95 ml - LA ESV BP (MOD) index 29.97 ml/m2 - Aortic Valve Name Value Normal Range AV Vmax 1.52 m/sec - AV VTI 25.38 cm - AV peak gradient 9.26 mmHg - AV mean gradient 5.12 mmHg - LVOT diameter 2.18 cm - LVOT Vmax 1.34 m/sec - LVOT VTI 20.19 cm - LVOT peak gradient 7.23 mmHg - LVOT mean gradient 2.75 mmHg - SV LVOT 75.66 ml - MATT (continuity Vmax) 3.31 cm2 - MATT (continuity VTI) 2.98 cm2 - Ascending Ao 2.83 cm - Mitral Valve Name Value Normal Range MV PHT 27.95 msec - MVA (PHT) 7.87 cm2 - Tricuspid Valve Name Value Normal Range TR Vmax 3.61 m/sec - TR peak gradient 52 mmHg - RAP 3 mmHg - RVSP 55 mmHg - IVC diameter 1.73 cm (1.2 - 2.3) Pulmonic Valve/Qp:Qs Name Value Normal Range PV Vmax 0.63 m/sec - PV peak gradient 2.39 mmHg - OH end-diastolic Vmax 1.35 m/sec - PV acceleration time 91.34 msec - Bishop/IV: Voiding Method Urinal IV Catheter Type [Left Peripheral IV Antecubital] IV Catheter Type [Right Peripheral IV Antecubital] Active Medications - Current Medications Current Medications: Generic Name Dose Route Start Last Admin Trade Name Freq PRN Reason Stop Dose Admin Acetaminophen 650 mg 06/23/20 03:36 06/28/20 05:36 Acetaminophen 325 Mg Tab PO 650 mg Q4H PRN Administration Pain MILD(1-3)/Fever >100.5/ISRAEL Hydromorphone HCl 0.25 mg 06/26/20 12:41 06/27/20 07:49 Hydromorphone 1 Mg/1 Ml Inj IV 0.25 mg Q3H PRN Administration Pain , Severe (7-10) Sodium Chloride 1,000 mls @ 75 mls/hr 06/23/20 03:45 06/28/20 10:37 Nacl 0.9% 1000 Ml IV 75 mls/hr DIRECT DEVONTE Administration Ceftriaxone Sodium 2 gm in 100 mls @ 200 mls/hr 06/25/20 14:00 06/28/20 10:36 Rocephin/Ns 2 Gm/100 Ml IV 200 mls/hr Q24HR DEVONTE Administration Protocol Magnesium Hydroxide 30 ml 06/23/20 03:36 Magnesium Hydroxide (Mom) Oral Liqd Udc PO Q4H PRN Constipation Miscellaneous Medication 1 tab 06/26/20 12:45 Symtuza [phone] Mg Tab PO DAILY DEVONTE Ondansetron HCl 4 mg 06/23/20 03:36 Ondansetron 4 Mg/2 Ml Inj IV Q8H PRN Nausea And Vomiting Sodium Chloride 10 ml 06/23/20 10:00 06/28/20 10:36 Sodium Chloride 0.9% 10 Ml Flush Syringe IV 10 ml BID DEVONTE Administration Sodium Chloride 10 ml 06/23/20 03:36 Sodium Chloride 0.9% 10 Ml Flush Syringe IV PRN PRN LINE FLUSH
[2020-06-29] MEDS: HYDROmorphone 1 MG/1 ML INJ IV PRN ×2 (10:53→21:10)
[2020-06-29] MEDS: cefTRIAXone/NS 2 GM/100 ML 2 GM/100 ML BAG IV SCH (10:54)
--- NOTE | 2020-06-29 11:05 | Progress Note ---
Assessment and Plan Assessment and plan: 39-year-old -[place] male with known history of HIV with unknown CD4 count noncompliant with antiretroviral therapy presents to the emergency room today complaining of fever, fatigue, generalized malaise and joint pains which has been ongoing for the past 2 days. He has also had some knee pain and shoulder pain. He denies any fall or trauma to these joints. He has been having difficulty ambulating secondary to the pain. He has also been having minimal shortness of breath. He denies any chest pain. Patient was diagnosed with HIV and septic arthritis about 5 years ago while in [place] . He subsequently had needle aspiration of the left knee at that time. Patient moved to [place] sometime in September 2019 and has not had any recent travel. He works from home and denies any sick contacts. He has not been on his medication since August when he moved to [place] as he has not had insurance established at his new job. Work-up today in the emergency room chest x-ray reveals: mild/early edema or atypical infectious/inflammatory process. Patient is admitted with pneumonia and will rule out COVID-19. Day#2 Patient has lots of pain Day #3 06/25/2020 Patient resting comfortably Patient uncooperative during MRI x2 Blood cultures-haemophilus influenza A positive in 2 out of 2 bottles 06/26: Remain septic at this time. Continue antibiotic therapy. Obtain imaging studies as updated. With the patient's permission discussed clinical care with the mom. We will also request for records from [facility] in [place]. 06/27: Xanax ordered for Patient to be able to obtain MRI, Continue abx, await PT/OT 06/28: Patient clinically improving. MRI reviewed shows septic joint. Considering patient's clinical improvement will still awaiting orthopedic surgeon consult of reconsulted again. Continue current antibiotic. If patient continues to have persistent fever may need to be transferred if orthopedic surgeon is unable to see the patient 24 hours. 06/29; orthopedic evaluation noted and appreciated, recommended CT-guided aspiration of the joint --Suspected COVID-19 /COVID-19 test negative Current Visit: Yes Status: Acute Plan to address problem: Patient negative for Covi negative --Severe sepsis with multifactorial etiology primarily atypical pneumonia and septic joint. Imaging studies pending we will place a mid line for IV access. To be able to obtain the MRI as ordered by ID. --Left upper and lower extremity hemiplegia and tenderness Likely secondary to infectious process nevertheless will rule out CVA. PT OT evaluate and treat. --Secondary coagulopathy Rule out pulmonary embolism and also evaluate for DVTs lower extremities --Atypical pneumonia secondary to influenza A Current Visit: Yes Status: Acute Plan to address problem: Patient initiated on ceftriaxone --HIV (human immunodeficiency virus infection) Current Visit: Yes Status: Acute Plan to address problem: CD4 count is unknown. Patient has not been antiretroviral agents for 9 months. Resume home medication --left shoulder pain and left hip pain Patient started on ceftriaxone . Vancomycin is discontinued septic arthritis to be ruled out patient refusing underlying MRI CAT scan of the abdomen --DVT prophylaxis Current Visit: Yes Status: Acute Plan to address problem: Heparin We will closely monitor the patient and adjust the management as needed Plan of care reviewed with the patient and his nurse as well as the case briefer History Interval history: I have seen and examined the patient at the bedside Patient's chart and medications reviewed Patient complains of some left shoulder and left hip pain probably due to septic joints Vital signs noted Hospitalist Physical - Constitutional Vitals: Temp Pulse Resp BP Pulse Ox 98.8 F 104 H 20 144/94 97 06/29/20 05:32 06/29/20 05:32 06/29/20 10:53 06/29/20 05:32 06/29/20 05:32 General appearance: Present: no acute distress, well-nourished - EENT Eyes: Present: PERRL, EOM intact - Neck Neck: Present: supple, normal ROM - Respiratory Respiratory effort: normal Respiratory: bilateral: diminished, negative: rales, rhonchi, wheezing - Cardiovascular Rhythm: regular Heart Sounds: Present: S1 & S2 - Extremities Extremities: no ischemia, No edema - Abdominal General gastrointestinal: soft, non-tender, non-distended, normal bowel sounds - Integumentary Integumentary: Present: clear, warm - Psychiatric Psychiatric: appropriate mood/affect, cooperative - Neurologic Neurologic: moves all extremities Results - Labs CBC & Chem 7: 06/28/20 06:03 06/28/20 06:03 Labs: Laboratory Last Values WBC 7.1 K/mm3 (4.5-11.0) 06/28/20 06:03 RBC 3.07 M/mm3 (3.65-5.03) L 06/28/20 06:03 Hgb 9.2 gm/dl (11.8-15.2) L 06/28/20 06:03 Hct 27.0 % (35.5-45.6) L 06/28/20 06:03 MCV 88 fl (84-94) 06/28/20 06:03 MCH 30 pg (28-32) 06/28/20 06:03 MCHC 34 % (32-34) 06/28/20 06:03 RDW 14.8 % (13.2-15.2) 06/28/20 06:03 Plt Count 512 K/mm3 (140-440) H 06/28/20 06:03 Lymph % (Auto) 24.7 % (13.4-35.0) 06/26/20 03:57 O'Brien % (Auto) 14.0 % (0.0-7.3) H 06/26/20 03:57 Eos % (Auto) 0.1 % (0.0-4.3) 06/26/20 03:57 Baso % (Auto) 0.1 % (0.0-1.8) 06/26/20 03:57 Lymph # (Auto) 2.1 K/mm3 (1.2-5.4) 06/26/20 03:57 O'Brien # (Auto) 1.2 K/mm3 (0.0-0.8) H 06/26/20 03:57 Eos # (Auto) 0.0 K/mm3 (0.0-0.4) 06/26/20 03:57 Baso # (Auto) 0.0 K/mm3 (0.0-0.1) 06/26/20 03:57 Seg Neutrophils % 61.1 % (40.0-70.0) 06/26/20 03:57 Seg Neutrophils # 5.1 K/mm3 (1.8-7.7) 06/26/20 03:57 PT 13.4 Sec. (12.2-14.9) 06/24/20 04:40 INR 1.04 (0.87-1.13) 06/24/20 04:40 D-Dimer 1312.19 ng/mlDDU (0-234) H 06/23/20 03:25 Sodium 131 mmol/L (137-145) L 06/28/20 06:03 Potassium 3.8 mmol/L (3.6-5.0) 06/28/20 06:03 Chloride 97.0 mmol/L (98-107) L 06/28/20 06:03 Carbon Dioxide 30 mmol/L (22-30) 06/28/20 06:03 Anion Gap 8 mmol/L 06/28/20 06:03 BUN 12 mg/dL (9-20) 06/28/20 06:03 Creatinine 0.7 mg/dL (0.8-1.3) L 06/28/20 06:03 Estimated GFR > 60 ml/min 06/28/20 06:03 BUN/Creatinine Ratio 17 % 06/28/20 06:03 Glucose 94 mg/dL (75-100) 06/28/20 06:03 Calcium 8.3 mg/dL (8.4-10.2) L 06/28/20 06:03 Total Bilirubin 0.40 mg/dL (0.1-1.2) 06/26/20 03:57 AST 9 units/L (5-40) 06/26/20 03:57 ALT 7 units/L (7-56) 06/26/20 03:57 Alkaline Phosphatase 54 units/L (35-129) 06/26/20 03:57 Total Creatine Kinase 24 units/L (55-170) L 06/23/20 00:12 Total Protein 8.3 g/dL (6.3-8.2) H 06/26/20 03:57 Albumin 2.1 g/dL (3.9-5) L 06/26/20 03:57 Albumin/Globulin Ratio 0.3 % 06/26/20 03:57 Lipase 15 units/L (13-60) 06/23/20 00:12 Procalcitonin 1.65 ng/mL (<0.15) 06/23/20 03:25 Urine Color Yellow (Yellow) 06/23/20 01:38 Urine Turbidity Clear (Clear) 06/23/20 01:38 Urine pH 5.0 (5.0-7.0) 06/23/20 01:38 Ur Specific [place] 1.020 (1.003-1.030) 06/23/20 01:38 Urine Protein 100 mg/dl mg/dL (Negative) 06/23/20 01:38 Urine Glucose (UA) Neg mg/dL (Negative) 06/23/20 01:38 Urine Ketones Neg mg/dL (Negative) 06/23/20 01:38 Urine Blood Lg (Negative) 06/23/20 01:38 Urine Nitrite Neg (Negative) 06/23/20 01:38 Urine Bilirubin Neg (Negative) 06/23/20 01:38 Urine Urobilinogen 4.0 mg/dL (<2.0) 06/23/20 01:38 Ur Leukocyte Esterase Neg (Negative) 06/23/20 01:38 Urine WBC (Auto) 12.0 /HPF (0.0-6.0) H 06/23/20 01:38 Urine RBC (Auto) 46.0 /HPF (0.0-6.0) 06/23/20 01:38 U Epithel Cells (Auto) 1.0 /HPF (0-13.0) 06/23/20 01:38 Urine Mucus Few /HPF 06/23/20 01:38 Coronavirus (PCR) Negative (Negative) 06/23/20 Unknown Microbiology: Microbiology 06/25/20 14:45 Peripheral/Venous Blood Culture - Preliminary NO GROWTH AFTER 72 HOURS - Diagnostic Impressions Diagnostic Impressions: Echocardiogram 06/24/20 14:54 Transthoracic Echocardiogram Indication: Endocarditis BP: 170/93 HR: 118 Conclusions *Global left ventricular systolic function is normal. *The estimated ejection fraction is 55-60%. *Mild concentric left ventricular hypertrophy is observed. *The right ventricular global systolic function is normal. *The right ventricle is mildly dilated. *The aortic valve is trileaflet. The leaflets are thin with normal excursion. There is no aortic stenosis or regurgitation present. *There is trace of mitral regurgitation. *There is mild tricuspid regurgitation. Findings Left Ventricle: The left ventricular chamber size is normal. Mild concentric left ventricular hypertrophy is observed. Global left ventricular wall motion and contractility are within normal limits. Global left ventricular systolic function is normal. The estimated ejection fraction is 55-60%. Left Atrium: The left atrial chamber size is normal. Right Ventricle: The right ventricle is mildly dilated. The right ventricular global systolic function is normal. Right Atrium: The right atrium is mildly dilated. Aortic Valve: The aortic valve is trileaflet. The leaflets are thin with normal excursion. There is no aortic stenosis or regurgitation present. Mitral Valve: The mitral valve leaflets appear normal. There is trace of mitral regurgitation. Tricuspid Valve: The tricuspid valve leaflets are normal. There is mild tricuspid regurgitation. Pulmonic Valve: There is no evidence of pulmonic valve thickening. There is trace pulmonic regurgitation. Pericardium: There is no pericardial effusion. Aorta: The aorta appears normal. Venous: The inferior vena cava appears normal in size. Measurements Chambers 2D Name Value Normal Range IVSd (2D) 1.16 cm (0.6 - 1.1) LVPWd (2D) 1.19 cm (0.6 - 1.1) LVIDd (2D) 4.61 cm (3.7 - 5.6) LVIDs (2D) 3.17 cm (2 - 3.8) LV FS (2D) 31.2 % - EF Teichholz (2D) 59.02 % - Ao root diameter (2D) 2.85 cm (2 - 3.7) Volumes/Mass Name Value Normal Range LA ESV SP 4CH (A/L) 47.43 ml - LA ESV SP 2CH (A/L) 81.49 ml - LA ESV BP (A/L) 63.56 ml - LA ESV BP (A/L) index 33.45 ml/m2 - LA ESV SP 4CH (MOD) 40.85 ml - LA ESV SP 2CH (MOD) 76.91 ml - LA ESV BP (MOD) 56.95 ml - LA ESV BP (MOD) index 29.97 ml/m2 - Aortic Valve Name Value Normal Range AV Vmax 1.52 m/sec - AV VTI 25.38 cm - AV peak gradient 9.26 mmHg - AV mean gradient 5.12 mmHg - LVOT diameter 2.18 cm - LVOT Vmax 1.34 m/sec - LVOT VTI 20.19 cm - LVOT peak gradient 7.23 mmHg - LVOT mean gradient 2.75 mmHg - SV LVOT 75.66 ml - MATT (continuity Vmax) 3.31 cm2 - MATT (continuity VTI) 2.98 cm2 - Ascending Ao 2.83 cm - Mitral Valve Name Value Normal Range MV PHT 27.95 msec - MVA (PHT) 7.87 cm2 - Tricuspid Valve Name Value Normal Range TR Vmax 3.61 m/sec - TR peak gradient 52 mmHg - RAP 3 mmHg - RVSP 55 mmHg - IVC diameter 1.73 cm (1.2 - 2.3) Pulmonic Valve/Qp:Qs Name Value Normal Range PV Vmax 0.63 m/sec - PV peak gradient 2.39 mmHg - CT end-diastolic Vmax 1.35 m/sec - PV acceleration time 91.34 msec - NDUM: 06/25/20 1210 Amended Report Transthoracic Echocardiogram Indication: Endocarditis BP: 170/93 HR: 118 Conclusions *Global left ventricular systolic function is normal. *The estimated ejection fraction is 55-60%. *Mild concentric left ventricular hypertrophy is observed. *The right ventricular global systolic function is normal. *The right ventricle is mildly dilated. *The aortic valve is trileaflet. The leaflets are thin with normal excursion. There is no aortic stenosis or regurgitation present. *There is trace of mitral regurgitation. *There is mild tricuspid regurgitation. *no obvious vegatations noted on mitral or aortic valve or tricupid, if clinically indicated consider matteo Findings Left Ventricle: The left ventricular chamber size is normal. Mild concentric left ventricular hypertrophy is observed. Global left ventricular wall motion and contractility are within normal limits. Global left ventricular systolic function is normal. The estimated ejection fraction is 55-60%. Left Atrium: The left atrial chamber size is normal. Right Ventricle: The right ventricle is mildly dilated. The right ventricular global systolic function is normal. Right Atrium: The right atrium is mildly dilated. Aortic Valve: The aortic valve is trileaflet. The leaflets are thin with normal excursion. There is no aortic stenosis or regurgitation present. Mitral Valve: The mitral valve leaflets appear normal. There is trace of mitral regurgitation. Tricuspid Valve: The tricuspid valve leaflets are normal. There is mild tricuspid regurgitation. Pulmonic Valve: There is no evidence of pulmonic valve thickening. There is trace pulmonic regurgitation. Pericardium: There is no pericardial effusion. Aorta: The aorta appears normal. Venous: The inferior vena cava appears normal in size. Measurements Chambers 2D Name Value Normal Range IVSd (2D) 1.16 cm (0.6 - 1.1) LVPWd (2D) 1.19 cm (0.6 - 1.1) LVIDd (2D) 4.61 cm (3.7 - 5.6) LVIDs (2D) 3.17 cm (2 - 3.8) LV FS (2D) 31.2 % - EF Teichholz (2D) 59.02 % - Ao root diameter (2D) 2.85 cm (2 - 3.7) Volumes/Mass Name Value Normal Range LA ESV SP 4CH (A/L) 47.43 ml - LA ESV SP 2CH (A/L) 81.49 ml - LA ESV BP (A/L) 63.56 ml - LA ESV BP (A/L) index 33.45 ml/m2 - LA ESV SP 4CH (MOD) 40.85 ml - LA ESV SP 2CH (MOD) 76.91 ml - LA ESV BP (MOD) 56.95 ml - LA ESV BP (MOD) index 29.97 ml/m2 - Aortic Valve Name Value Normal Range AV Vmax 1.52 m/sec - AV VTI 25.38 cm - AV peak gradient 9.26 mmHg - AV mean gradient 5.12 mmHg - LVOT diameter 2.18 cm - LVOT Vmax 1.34 m/sec - LVOT VTI 20.19 cm - LVOT peak gradient 7.23 mmHg - LVOT mean gradient 2.75 mmHg - SV LVOT 75.66 ml - MATT (continuity Vmax) 3.31 cm2 - MATT (continuity VTI) 2.98 cm2 - Ascending Ao 2.83 cm - Mitral Valve Name Value Normal Range MV PHT 27.95 msec - MVA (PHT) 7.87 cm2 - Tricuspid Valve Name Value Normal Range TR Vmax 3.61 m/sec - TR peak gradient 52 mmHg - RAP 3 mmHg - RVSP 55 mmHg - IVC diameter 1.73 cm (1.2 - 2.3) Pulmonic Valve/Qp:Qs Name Value Normal Range PV Vmax 0.63 m/sec - PV peak gradient 2.39 mmHg - CT end-diastolic Vmax 1.35 m/sec - PV acceleration time 91.34 msec - Bishop/IV: Voiding Method Urinal IV Catheter Type [Left Peripheral IV Antecubital] IV Catheter Type [Right Peripheral IV Antecubital] Active Medications - Current Medications Current Medications: Generic Name Dose Route Start Last Admin Trade Name Freq PRN Reason Stop Dose Admin Acetaminophen 650 mg 06/23/20 03:36 06/28/20 05:36 Acetaminophen 325 Mg Tab PO 650 mg Q4H PRN Administration Pain MILD(1-3)/Fever >100.5/ISRAEL Hydromorphone HCl 0.25 mg 06/26/20 12:41 06/29/20 10:53 Hydromorphone 1 Mg/1 Ml Inj IV 0.25 mg Q3H PRN Administration Pain , Severe (7-10) Sodium Chloride 1,000 mls @ 75 mls/hr 06/23/20 03:45 06/28/20 10:37 Nacl 0.9% 1000 Ml IV 75 mls/hr DIRECT DEVONTE Administration Ceftriaxone Sodium 2 gm in 100 mls @ 200 mls/hr 06/25/20 14:00 06/29/20 10:54 Rocephin/Ns 2 Gm/100 Ml IV 200 mls/hr Q24HR DEVONTE Administration Protocol Magnesium Hydroxide 30 ml 06/23/20 03:36 Magnesium Hydroxide (Mom) Oral Liqd Udc PO Q4H PRN Constipation Miscellaneous Medication 1 tab 06/26/20 12:45 Symtuza [phone] Mg Tab PO DAILY DEVONTE Ondansetron HCl 4 mg 06/23/20 03:36 Ondansetron 4 Mg/2 Ml Inj IV Q8H PRN Nausea And Vomiting Sodium Chloride 10 ml 06/23/20 10:00 06/29/20 10:55 Sodium Chloride 0.9% 10 Ml Flush Syringe IV 10 ml BID DEVONTE Administration Sodium Chloride 10 ml 06/23/20 03:36 Sodium Chloride 0.9% 10 Ml Flush Syringe IV PRN PRN LINE FLUSH
--- NOTE | 2020-06-29 12:53 | Vascular Lab Report ---
DUPLEX DOPPLER LOWER EXTREMITY VEINS, BILATERAL INDICATION: DVT. Arthritis and pain in left knee TECHNIQUE: Duplex doppler imaging was performed through the veins of both lower extremities using ve nous compression and other maneuvers. COMPARISON: No relevant prior imaging study available. FINDINGS: Right Common femoral vein: Negative. Right Superficial femoral vein: Negative. Right Popliteal vein: Negative. Right Calf veins: Negative. Left Common femoral vein: Negative. Left Superficial femoral vein: Negative. Left Popliteal vein: Negative. Left Calf veins: Negative. Additional findings: None. IMPRESSION: No sonographic evidence for DVT in either lower extremity. Signer Name: Chino Miller Jr, MD Signed: 06/29/2020 12:49 PM Workstation Name: [id number]
--- NOTE | 2020-06-29 13:45 | Consultation ---
History of Present Illness - HPI Consult date: 06/29/20 Consult reason: joint pain History of present illness: 39-year-old -Maced[place] male with known history of HIV with unknown CD4 count noncompliant with antiretroviral therapy presents to the emergency room today complaining of fever, fatigue, generalized malaise and joint pains which has been ongoing for the past 5 days. Currently c/o left hip and shoulder but hip worse... Past History Past Medical History: HIV/AIDS Past Surgical History: No surgical history Social history: smoking, alcohol abuse Family history: no significant family history Medications and Allergies Allergies Allergy/AdvReac Type Severity Reaction Status Date / Time No Known Allergies Allergy Verified 06/22/20 22:07 Home Medications Medication Instructions Recorded Confirmed Last Taken Type Symtuza [phone] mg Tab 1 tab PO DAILY 06/23/20 06/23/20 Unknown History Active Meds: Active Medications Acetaminophen (Acetaminophen 325 Mg Tab) 650 mg PO Q4H PRN PRN Reason: Pain MILD(1-3)/Fever >100.5/ISRAEL Last Admin: 06/28/20 05:36 Dose: 650 mg Documented by: Hydromorphone HCl (Hydromorphone 1 Mg/1 Ml Inj) 0.25 mg IV Q3H PRN PRN Reason: Pain , Severe (7-10) Last Admin: 06/29/20 10:53 Dose: 0.25 mg Documented by: Sodium Chloride (Nacl 0.9% 1000 Ml) 1,000 mls @ 75 mls/hr IV DIRECT DEVONTE Last Admin: 06/28/20 10:37 Dose: 75 mls/hr Documented by: Ceftriaxone Sodium (Rocephin/Ns 2 Gm/100 Ml) 2 gm in 100 mls @ 200 mls/hr IV Q24HR DEVONTE; Protocol Last Admin: 06/29/20 10:54 Dose: 200 mls/hr Documented by: Magnesium Hydroxide (Magnesium Hydroxide (Mom) Oral Liqd Udc) 30 ml PO Q4H PRN PRN Reason: Constipation Miscellaneous Medication (Symtuza [phone] Mg Tab) 1 tab PO DAILY DEVONTE Ondansetron HCl (Ondansetron 4 Mg/2 Ml Inj) 4 mg IV Q8H PRN PRN Reason: Nausea And Vomiting Sodium Chloride (Sodium Chloride 0.9% 10 Ml Flush Syringe) 10 ml IV BID DEVONTE Last Admin: 06/29/20 10:55 Dose: 10 ml Documented by: Sodium Chloride (Sodium Chloride 0.9% 10 Ml Flush Syringe) 10 ml IV PRN PRN PRN Reason: LINE FLUSH Physical Examination - Physical exam Narrative exam: left hip - no obvious swelling/erythema, no increased warmth felt, tender proximal thigh, decreased active ROM Assessment and Plan left hip pain recommend CT guided aspiration left hip joint
[2020-06-29] MEDS: SODIUM CHLORIDE 0.9% 1000 ML 1,000 ML IV SCH (14:46)
--- NOTE | 2020-06-29 14:56 | Progress Note ---
Assessment and Plan Cultures: SARS CoV2 PCR: negative 06/23/2020 blood culture: Haemophilus influenzae in 2 sets. Coag negative staph in 1 set. 06/25/2020 blood culture: No growth A/P: 39-year-old male with HIV, not on antiretroviral therapy since September 2019, moved here from [place]: #SIRS/sepsis: secondary to bacteremia, ?pneumonia. #Bacteremia: Haemophilus influenzae in 2 sets, source probably pneumonia, but with left shoulder and hip pain, eval for septic arthritis. MRI suggestive of septic arthritis in L shoulder and L hip. Ortho evaluated on 06/29/2020 and planning arthrocentesis. Coag negative staph in 1 set, likely contaminant. TTE did not reveal any significant valvular abnormalities. #Pneumonia: CD4 unknown but was well controlled until recent, very likely to be PJP. Blood cultures positive for Haemophilus influenzae. #HIV: Not on antiretroviral therapy. Used to be undetectable, on Symtuza, has not taken meds for at least 2 months after he moved here. Risk factor is MSM. New insurance is going to kick in soon. #History of left knee septic arthritis about 5 years ago: Treated with antibiotics. Recs: -continue IV ceftriaxone -f/u HIV RNA PCR, CD4 count ordered -orthopedics following. Given bacteremia and imaging findings, consider washout Refugio Loyola MD, FACP [facility] O: [phone] F: [phone] Subjective Date of service: 06/29/20 Principal diagnosis: Pneumonia Interval history: No fever. Pain in left shoulder is slightly better, left hip still painful. Was seen by orthopedics. Objective - Exam Narrative Exam: Physical Exam: Constitutional: Alert, cooperative. No acute distress Head, Ears, Nose: Normocephalic, atraumatic. External ears, nose normal Eyes: Conjunctivae/corneas clear. No icterus. No ptosis. Neck: Supple, no meningeal signs Cardiovascular: S1, S2 normal. Respiratory: Good air entry, clear to auscultation bilaterally GI: Soft, non-tender; bowel sounds normal. No peritoneal signs Musculoskeletal: Left shoulder and left hip with significant pain, reduced range of motion Skin: No rash or abscess Hem/Lymphatic: No palpable cervical or supraclavicular nodes. No lymphangitis Psych: Mood ok. Affect normal Neurological: Awake, alert, oriented. No gross abnormality - Constitutional Vitals: Vital Signs Temp Pulse Resp BP Pulse Ox 98.9 F 101 H 18 145/96 98 06/29/20 11:14 06/29/20 11:14 06/29/20 11:14 06/29/20 11:14 06/29/20 11:14 Temperature -Last 24 Hours Temperature 98.9 F Temperature 98.8 F Temperature 99.7 F Temperature 99.6 F - Labs CBC & Chem 7: 06/28/20 06:03 06/28/20 06:03
[2020-06-30 03:00] LABS: HIV-1 RNA QN PCR 5.56 Log cps/mL
[2020-06-30] MEDS: cefTRIAXone/NS 2 GM/100 ML 2 GM/100 ML BAG IV SCH (10:35)
[2020-06-30] MEDS: HYDROmorphone 1 MG/1 ML INJ IV PRN ×2 (10:37→16:54)
--- NOTE | 2020-06-30 13:37 | Progress Note ---
Assessment and Plan Cultures: SARS CoV2 PCR: negative 06/23/2020 blood culture: Haemophilus influenzae in 2 sets. Coag negative staph in 1 set. 06/25/2020 blood culture: No growth A/P: 39-year-old male with HIV, not on antiretroviral therapy since September 2019, moved here from [place]: #SIRS/sepsis: secondary to bacteremia, ?pneumonia. #Bacteremia: Haemophilus influenzae in 2 sets, source probably septic arthritis. MRI suggestive of septic arthritis in L shoulder and L hip. Ortho evaluated on 06/29/2020 and planning arthrocentesis. Coag negative staph in 1 set, likely contaminant. TTE did not reveal any significant valvular abnormalities. #Pneumonia: CD4 unknown but was well controlled until recent, very likely to be PJP. Blood cultures positive for Haemophilus influenzae. #HIV: Not on antiretroviral therapy. Used to be undetectable, on Symtuza, has not taken meds for at least 2 months after he moved here. Risk factor is MSM. New insurance is going to kick in soon. HIV RNA PCR here is 364K, CD4 pending. #History of left knee septic arthritis about 5 years ago: Treated with antibiotics. Recs: -continue IV Ceftriaxone -f/u CD4 count, if <200, will start Bactrim prophylaxis -orthopedics following. Given bacteremia and imaging findings, consider washout. Given patient has been on IV abx all these days, arthrocentesis may reflect partially treated septic arthritis Refugio Loyola MD, FACP [facility] O: [phone] F: [phone] Subjective Date of service: 06/30/20 Principal diagnosis: Pneumonia Interval history: No fever. Pain in left shoulder is slightly better, left hip still painful. Still pending hip aspiration. Objective - Exam Narrative Exam: Physical Exam: Constitutional: Alert, cooperative. No acute distress Head, Ears, Nose: Normocephalic, atraumatic. External ears, nose normal Eyes: Conjunctivae/corneas clear. No icterus. No ptosis. Neck: Supple, no meningeal signs Cardiovascular: S1, S2 normal. Respiratory: Good air entry, clear to auscultation bilaterally GI: Soft, non-tender; bowel sounds normal. No peritoneal signs Musculoskeletal: Left shoulder and left hip with significant pain, reduced range of motion Skin: No rash or abscess Hem/Lymphatic: No palpable cervical or supraclavicular nodes. No lymphangitis Psych: Mood ok. Affect normal Neurological: Awake, alert, oriented. No gross abnormality - Constitutional Vitals: Vital Signs Temp Pulse Resp BP Pulse Ox 98.5 F 101 H 18 134/89 98 06/30/20 03:39 06/30/20 03:39 06/30/20 03:39 06/30/20 03:39 06/30/20 03:39 Temperature -Last 24 Hours Temperature 98.5 F Temperature 99.0 F Temperature 98.6 F - Labs CBC & Chem 7: 06/28/20 06:03 06/28/20 06:03 Labs: Abnormal lab results 06/23/20 Range/Units 15:29 HIV-1 RNA PCR copies/ml [id number] H Copies/mL HIV-1 RNA (PCR) log 5.56 H Log cps/mL
[2020-06-30] MEDS: SODIUM CHLORIDE 0.9% 1000 ML 1,000 ML IV SCH (17:54)
[2020-06-30 18:15] LABS: CD4/CD8 Ratio 0.43 (0.86-5.00)
--- NOTE | 2020-06-30 20:34 | Progress Note ---
Assessment and Plan Assessment and plan: --COVID-19 test negative Current Visit: Yes Status: Acute Plan to address problem: Patient negative for Covi negative --Severe sepsis with multifactorial etiology primarily atypical pneumonia and septic joint. Imaging studies pending we will place a mid line for IV access. To be able to obtain the MRI as ordered by ID. --Left upper and lower extremity hemiplegia and tenderness Likely secondary to infectious process nevertheless will rule out CVA. PT OT evaluate and treat. --Secondary coagulopathy Rule out pulmonary embolism and also evaluate for DVTs lower extremities --Atypical pneumonia secondary to influenza A Current Visit: Yes Status: Acute Plan to address problem: Patient initiated on ceftriaxone --HIV (human immunodeficiency virus infection) Current Visit: Yes Status: Acute Plan to address problem: CD4 count is unknown. Patient has not been antiretroviral agents for 9 months. Resume home medication --left shoulder pain and left hip pain Patient started on ceftriaxone . Vancomycin is discontinued septic arthritis to be ruled out patient refusing underlying MRI CAT scan of the abdomen Ortho evaluated the patient, recommended IR /CT-guided drainage of abscess, and cultures --DVT prophylaxis Current Visit: Yes Status: Acute Plan to address problem: Heparin We will closely monitor the patient and adjust the management as needed Plan of care reviewed with the patient and his nurse as well as the cyanide case hardener 39-year-old -[place]ian male with known history of HIV with unknown CD4 count noncompliant with antiretroviral therapy presents to the emergency room today complaining of fever, fatigue, generalized malaise and joint pains which has been ongoing for the past 2 days. He has also had some knee pain and shoulder pain. He denies any fall or trauma to these joints. He has been having difficulty ambulating secondary to the pain. He has also been having minimal shortness of breath. He denies any chest pain. Patient was diagnosed with HIV and septic arthritis about 5 years ago while in [place] . He subsequently had needle aspiration of the left knee at that time. Patient moved to [place] sometime in September 2019 and has not had any recent travel. He works from home and denies any sick contacts. He has not been on his medication since August when he moved to [place] as he has not had insurance established at his new job. Work-up today in the emergency room chest x-ray reveals: mild/early edema or atypical infectious/inflammatory process. Patient is admitted with pneumonia and will rule out COVID-19. Day#2 Patient has lots of pain Day #3 06/25/2020 Patient resting comfortably Patient uncooperative during MRI x2 Blood cultures-haemophilus influenza A positive in 2 out of 2 bottles 06/26: Remain septic at this time. Continue antibiotic therapy. Obtain imaging studies as updated. With the patient's permission discussed clinical care with the mom. We will also request for records from [facility] in [place]. 06/27: Xanax ordered for Patient to be able to obtain MRI, Continue abx, await PT/OT 06/28: Patient clinically improving. MRI reviewed shows septic joint. Considering patient's clinical improvement will still awaiting orthopedic surgeon consult of reconsulted again. Continue current antibiotic. If patient continues to have persistent fever may need to be transferred if orthopedic surgeon is unable to see the patient 24 hours. 06/29; orthopedic evaluation noted and appreciated, recommended CT-guided aspiration of the joint History Interval history: I have seen and examined the patient at the bedside Patient's chart and medications reviewed Vital signs noted No new complaints Hospitalist Physical - Constitutional Vitals: Temp Pulse Resp BP Pulse Ox 98.5 F 101 H 18 134/89 98 06/30/20 03:39 06/30/20 03:39 06/30/20 03:39 06/30/20 03:39 06/30/20 03:39 General appearance: Present: no acute distress, well-nourished - EENT Eyes: Present: PERRL, EOM intact - Neck Neck: Present: supple, normal ROM - Respiratory Respiratory effort: normal Respiratory: bilateral: diminished, rhonchi, negative: rales, wheezing - Cardiovascular Rhythm: regular Heart Sounds: Present: S1 & S2 - Extremities Extremities: no ischemia, No edema - Abdominal General gastrointestinal: soft, non-tender, non-distended, normal bowel sounds - Integumentary Integumentary: Present: clear, warm - Psychiatric Psychiatric: cooperative - Neurologic Neurologic: moves all extremities Results - Labs CBC & Chem 7: 06/28/20 06:03 06/28/20 06:03 Labs: Laboratory Last Values WBC 7.1 K/mm3 (4.5-11.0) 06/28/20 06:03 RBC 3.07 M/mm3 (3.65-5.03) L 06/28/20 06:03 Hgb 9.2 gm/dl (11.8-15.2) L 06/28/20 06:03 Hct 27.0 % (35.5-45.6) L 06/28/20 06:03 MCV 88 fl (84-94) 06/28/20 06:03 MCH 30 pg (28-32) 06/28/20 06:03 MCHC 34 % (32-34) 06/28/20 06:03 RDW 14.8 % (13.2-15.2) 06/28/20 06:03 Plt Count 512 K/mm3 (140-440) H 06/28/20 06:03 Lymph % (Auto) 24.7 % (13.4-35.0) 06/26/20 03:57 Harris % (Auto) 14.0 % (0.0-7.3) H 06/26/20 03:57 Eos % (Auto) 0.1 % (0.0-4.3) 06/26/20 03:57 Baso % (Auto) 0.1 % (0.0-1.8) 06/26/20 03:57 Lymph # (Auto) 2.1 K/mm3 (1.2-5.4) 06/26/20 03:57 Harris # (Auto) 1.2 K/mm3 (0.0-0.8) H 06/26/20 03:57 Eos # (Auto) 0.0 K/mm3 (0.0-0.4) 06/26/20 03:57 Baso # (Auto) 0.0 K/mm3 (0.0-0.1) 06/26/20 03:57 Seg Neutrophils % 61.1 % (40.0-70.0) 06/26/20 03:57 Seg Neutrophils # 5.1 K/mm3 (1.8-7.7) 06/26/20 03:57 Abs Lymphs (Manual) 1003 cells/uL (850-3900) 06/23/20 15:29 PT 13.4 Sec. (12.2-14.9) 06/24/20 04:40 INR 1.04 (0.87-1.13) 06/24/20 04:40 D-Dimer 1312.19 ng/mlDDU (0-234) H 06/23/20 03:25 Sodium 131 mmol/L (137-145) L 06/28/20 06:03 Potassium 3.8 mmol/L (3.6-5.0) 06/28/20 06:03 Chloride 97.0 mmol/L (98-107) L 06/28/20 06:03 Carbon Dioxide 30 mmol/L (22-30) 06/28/20 06:03 Anion Gap 8 mmol/L 06/28/20 06:03 BUN 12 mg/dL (9-20) 06/28/20 06:03 Creatinine 0.7 mg/dL (0.8-1.3) L 06/28/20 06:03 Estimated GFR > 60 ml/min 06/28/20 06:03 BUN/Creatinine Ratio 17 % 06/28/20 06:03 Glucose 94 mg/dL (75-100) 06/28/20 06:03 Calcium 8.3 mg/dL (8.4-10.2) L 06/28/20 06:03 Total Bilirubin 0.40 mg/dL (0.1-1.2) 06/26/20 03:57 AST 9 units/L (5-40) 06/26/20 03:57 ALT 7 units/L (7-56) 06/26/20 03:57 Alkaline Phosphatase 54 units/L (35-129) 06/26/20 03:57 Total Creatine Kinase 24 units/L (55-170) L 06/23/20 00:12 Total Protein 8.3 g/dL (6.3-8.2) H 06/26/20 03:57 Albumin 2.1 g/dL (3.9-5) L 06/26/20 03:57 Albumin/Globulin Ratio 0.3 % 06/26/20 03:57 Lipase 15 units/L (13-60) 06/23/20 00:12 Procalcitonin 1.65 ng/mL (<0.15) 06/23/20 03:25 Urine Color Yellow (Yellow) 06/23/20 01:38 Urine Turbidity Clear (Clear) 06/23/20 01:38 Urine pH 5.0 (5.0-7.0) 06/23/20 01:38 Ur Specific [place] 1.020 (1.003-1.030) 06/23/20 01:38 Urine Protein 100 mg/dl mg/dL (Negative) 06/23/20 01:38 Urine Glucose (UA) Neg mg/dL (Negative) 06/23/20 01:38 Urine Ketones Neg mg/dL (Negative) 06/23/20 01:38 Urine Blood Lg (Negative) 06/23/20 01:38 Urine Nitrite Neg (Negative) 06/23/20 01:38 Urine Bilirubin Neg (Negative) 06/23/20 01:38 Urine Urobilinogen 4.0 mg/dL (<2.0) 06/23/20 01:38 Ur Leukocyte Esterase Neg (Negative) 06/23/20 01:38 Urine WBC (Auto) 12.0 /HPF (0.0-6.0) H 06/23/20 01:38 Urine RBC (Auto) 46.0 /HPF (0.0-6.0) 06/23/20 01:38 U Epithel Cells (Auto) 1.0 /HPF (0-13.0) 06/23/20 01:38 Urine Mucus Few /HPF 06/23/20 01:38 Lymph Enumerat CD4/CD8 0.43 (0.86-5.00) L 06/23/20 15:29 % CD3 Cells 86 % (57-85) H 06/23/20 15:29 Absolute CD3 Count 0861 cells/uL (840-3060) 06/23/20 15:29 % CD4 Cells 25 % (30-61) L 06/23/20 15:29 Absolute CD4 Count 266 cells/uL (490-1740) L 06/23/20 15:29 % CD8 Cells 58 % (12-42) H 06/23/20 15:29 Absolute CD8 Count 622 cells/uL (180-1170) 06/23/20 15:29 % CD19 Cells 3 % (6-29) L 06/23/20 15:29 Absolute CD19 Count 25 cells/uL (110-660) L 06/23/20 15:29 Coronavirus (PCR) Negative (Negative) 06/23/20 Unknown HIV-1 RNA PCR copies/ml 320030 Copies/mL H 06/23/20 15:29 HIV-1 RNA (PCR) log 5.56 Log cps/mL H 06/23/20 15:29 Microbiology: Microbiology 06/25/20 14:45 Peripheral/Venous Blood Culture - Final NO GROWTH AFTER 5 DAYS - Diagnostic Impressions Diagnostic Impressions: Echocardiogram 06/24/20 14:54 Transthoracic Echocardiogram Indication: Endocarditis BP: 170/93 HR: 118 Conclusions *Global left ventricular systolic function is normal. *The estimated ejection fraction is 55-60%. *Mild concentric left ventricular hypertrophy is observed. *The right ventricular global systolic function is normal. *The right ventricle is mildly dilated. *The aortic valve is trileaflet. The leaflets are thin with normal excursion. There is no aortic stenosis or regurgitation present. *There is trace of mitral regurgitation. *There is mild tricuspid regurgitation. Findings Left Ventricle: The left ventricular chamber size is normal. Mild concentric left ventricular hypertrophy is observed. Global left ventricular wall motion and contractility are within normal limits. Global left ventricular systolic function is normal. The estimated ejection fraction is 55-60%. Left Atrium: The left atrial chamber size is normal. Right Ventricle: The right ventricle is mildly dilated. The right ventricular global systolic function is normal. Right Atrium: The right atrium is mildly dilated. Aortic Valve: The aortic valve is trileaflet. The leaflets are thin with normal excursion. There is no aortic stenosis or regurgitation present. Mitral Valve: The mitral valve leaflets appear normal. There is trace of mitral regurgitation. Tricuspid Valve: The tricuspid valve leaflets are normal. There is mild tricuspid regurgitation. Pulmonic Valve: There is no evidence of pulmonic valve thickening. There is trace pulmonic regurgitation. Pericardium: There is no pericardial effusion. Aorta: The aorta appears normal. Venous: The inferior vena cava appears normal in size. Measurements Chambers 2D Name Value Normal Range IVSd (2D) 1.16 cm (0.6 - 1.1) LVPWd (2D) 1.19 cm (0.6 - 1.1) LVIDd (2D) 4.61 cm (3.7 - 5.6) LVIDs (2D) 3.17 cm (2 - 3.8) LV FS (2D) 31.2 % - EF Teichholz (2D) 59.02 % - Ao root diameter (2D) 2.85 cm (2 - 3.7) Volumes/Mass Name Value Normal Range LA ESV SP 4CH (A/L) 47.43 ml - LA ESV SP 2CH (A/L) 81.49 ml - LA ESV BP (A/L) 63.56 ml - LA ESV BP (A/L) index 33.45 ml/m2 - LA ESV SP 4CH (MOD) 40.85 ml - LA ESV SP 2CH (MOD) 76.91 ml - LA ESV BP (MOD) 56.95 ml - LA ESV BP (MOD) index 29.97 ml/m2 - Aortic Valve Name Value Normal Range AV Vmax 1.52 m/sec - AV VTI 25.38 cm - AV peak gradient 9.26 mmHg - AV mean gradient 5.12 mmHg - LVOT diameter 2.18 cm - LVOT Vmax 1.34 m/sec - LVOT VTI 20.19 cm - LVOT peak gradient 7.23 mmHg - LVOT mean gradient 2.75 mmHg - SV LVOT 75.66 ml - MATT (continuity Vmax) 3.31 cm2 - MATT (continuity VTI) 2.98 cm2 - Ascending Ao 2.83 cm - Mitral Valve Name Value Normal Range MV PHT 27.95 msec - MVA (PHT) 7.87 cm2 - Tricuspid Valve Name Value Normal Range TR Vmax 3.61 m/sec - TR peak gradient 52 mmHg - RAP 3 mmHg - RVSP 55 mmHg - IVC diameter 1.73 cm (1.2 - 2.3) Pulmonic Valve/Qp:Qs Name Value Normal Range PV Vmax 0.63 m/sec - PV peak gradient 2.39 mmHg - NE end-diastolic Vmax 1.35 m/sec - PV acceleration time 91.34 msec - NDUM: 06/25/20 1210 Amended Report Transthoracic Echocardiogram Indication: Endocarditis BP: 170/93 HR: 118 Conclusions *Global left ventricular systolic function is normal. *The estimated ejection fraction is 55-60%. *Mild concentric left ventricular hypertrophy is observed. *The right ventricular global systolic function is normal. *The right ventricle is mildly dilated. *The aortic valve is trileaflet. The leaflets are thin with normal excursion. There is no aortic stenosis or regurgitation present. *There is trace of mitral regurgitation. *There is mild tricuspid regurgitation. *no obvious vegatations noted on mitral or aortic valve or tricupid, if clinically indicated consider matteo Findings Left Ventricle: The left ventricular chamber size is normal. Mild concentric left ventricular hypertrophy is observed. Global left ventricular wall motion and contractility are within normal limits. Global left ventricular systolic function is normal. The estimated ejection fraction is 55-60%. Left Atrium: The left atrial chamber size is normal. Right Ventricle: The right ventricle is mildly dilated. The right ventricular global systolic function is normal. Right Atrium: The right atrium is mildly dilated. Aortic Valve: The aortic valve is trileaflet. The leaflets are thin with normal excursion. There is no aortic stenosis or regurgitation present. Mitral Valve: The mitral valve leaflets appear normal. There is trace of mitral regurgitation. Tricuspid Valve: The tricuspid valve leaflets are normal. There is mild tricuspid regurgitation. Pulmonic Valve: There is no evidence of pulmonic valve thickening. There is trace pulmonic regurgitation. Pericardium: There is no pericardial effusion. Aorta: The aorta appears normal. Venous: The inferior vena cava appears normal in size. Measurements Chambers 2D Name Value Normal Range IVSd (2D) 1.16 cm (0.6 - 1.1) LVPWd (2D) 1.19 cm (0.6 - 1.1) LVIDd (2D) 4.61 cm (3.7 - 5.6) LVIDs (2D) 3.17 cm (2 - 3.8) LV FS (2D) 31.2 % - EF Teichholz (2D) 59.02 % - Ao root diameter (2D) 2.85 cm (2 - 3.7) Volumes/Mass Name Value Normal Range LA ESV SP 4CH (A/L) 47.43 ml - LA ESV SP 2CH (A/L) 81.49 ml - LA ESV BP (A/L) 63.56 ml - LA ESV BP (A/L) index 33.45 ml/m2 - LA ESV SP 4CH (MOD) 40.85 ml - LA ESV SP 2CH (MOD) 76.91 ml - LA ESV BP (MOD) 56.95 ml - LA ESV BP (MOD) index 29.97 ml/m2 - Aortic Valve Name Value Normal Range AV Vmax 1.52 m/sec - AV VTI 25.38 cm - AV peak gradient 9.26 mmHg - AV mean gradient 5.12 mmHg - LVOT diameter 2.18 cm - LVOT Vmax 1.34 m/sec - LVOT VTI 20.19 cm - LVOT peak gradient 7.23 mmHg - LVOT mean gradient 2.75 mmHg - SV LVOT 75.66 ml - MATT (continuity Vmax) 3.31 cm2 - MATT (continuity VTI) 2.98 cm2 - Ascending Ao 2.83 cm - Mitral Valve Name Value Normal Range MV PHT 27.95 msec - MVA (PHT) 7.87 cm2 - Tricuspid Valve Name Value Normal Range TR Vmax 3.61 m/sec - TR peak gradient 52 mmHg - RAP 3 mmHg - RVSP 55 mmHg - IVC diameter 1.73 cm (1.2 - 2.3) Pulmonic Valve/Qp:Qs Name Value Normal Range PV Vmax 0.63 m/sec - PV peak gradient 2.39 mmHg - NE end-diastolic Vmax 1.35 m/sec - PV acceleration time 91.34 msec - Bishop/IV: Voiding Method Toilet IV Catheter Type [Left Hand] INT / Saline Lock IV Catheter Type [Left Peripheral IV Antecubital] IV Catheter Type [Right Peripheral IV Antecubital] Active Medications - Current Medications Current Medications: Generic Name Dose Route Start Last Admin Trade Name Freq PRN Reason Stop Dose Admin Acetaminophen 650 mg 06/23/20 03:36 06/28/20 05:36 Acetaminophen 325 Mg Tab PO 650 mg Q4H PRN Administration Pain MILD(1-3)/Fever >100.5/ISRAEL Hydromorphone HCl 0.25 mg 06/26/20 12:41 06/30/20 16:54 Hydromorphone 1 Mg/1 Ml Inj IV 0.25 mg Q3H PRN Administration Pain , Severe (7-10) Sodium Chloride 1,000 mls @ 75 mls/hr 06/23/20 03:45 06/30/20 17:54 Nacl 0.9% 1000 Ml IV 75 mls/hr DIRECT DEVONTE Administration Ceftriaxone Sodium 2 gm in 100 mls @ 200 mls/hr 06/25/20 14:00 06/30/20 10:35 Rocephin/Ns 2 Gm/100 Ml IV 200 mls/hr Q24HR DEVONTE Administration Protocol Magnesium Hydroxide 30 ml 06/23/20 03:36 Magnesium Hydroxide (Mom) Oral Liqd Udc PO Q4H PRN Constipation Miscellaneous Medication 1 tab 06/26/20 12:45 Symtuza [phone] Mg Tab PO DAILY DEVONTE Ondansetron HCl 4 mg 06/23/20 03:36 Ondansetron 4 Mg/2 Ml Inj IV Q8H PRN Nausea And Vomiting Sodium Chloride 10 ml 06/23/20 10:00 06/30/20 10:38 Sodium Chloride 0.9% 10 Ml Flush Syringe IV 10 ml BID DEVONTE Administration Sodium Chloride 10 ml 06/23/20 03:36 06/30/20 16:55 Sodium Chloride 0.9% 10 Ml Flush Syringe IV 10 ml PRN PRN Administration LINE FLUSH Nutrition/Malnutrition Assess - Dietary Evaluation Nutrition/Malnutrition Findings: Nutrition Notes Start: 06/30/20 14:35 Freq: Status: Active Protocol: Document 06/30/20 14:35 OCTAVIO (Rec: 06/30/20 14:39 [email or web address] [id number]) Nutrition Notes Need for Assessment generated from: LOS Initial or Follow up Brief Note Current Diet Renal Height 5 ft 9 in Weight 96.3 kg [place] Body Weight (kg) 72.72 BMI 31.3 Subjective/Other Information Pt screened for LOS. He has consumed 92% of meals since admission. Percent of energy/protein needs met: 100% energy and pro Current % PO Good (75-100%) Minimum of two criteria No Is patient on ventilator? No Is Patient Ambulatory and/or Out of Bed Yes REE-([facility]-ambulatory/OOB) [ 2441.894 NUTR.MSJOOB] Kcal/Kg value to use for calculation 20 Approximate Energy Requirements Using 1926 kcal/Kg Calculation Used for Recommendations Kcal/kg Additional Notes Pro needs 0.8-1g/kg adjBW: 68- 85g/day Fluid needs 1ml/kcal Nutrition Intervention Revisit per MD consult or patient Sign Off request:
[2020-07-01] MEDS: HYDROmorphone 1 MG/1 ML INJ IV PRN ×3 (02:11→21:02)
[2020-07-01] MEDS ORDERED: ONDANSETRON 4 MG/2 ML INJ IV ONE (09:11)
[2020-07-01] MEDS ORDERED: HYDROmorphone 1 MG/1 ML INJ IV ONE (09:11)
--- NOTE | 2020-07-01 10:41 | Cat Scan Report ---
CT DRAIN CYST/ABSCESS HISTORY: Left hip pain, left hip effusion, evaluate for septic joint COMPARISON: MRI left hip 06/27/2020. DESCRIPTION OF PROCEDURE: Informed consent was obtained. Sterile technique was utilized. The anterior left hip was prepped and draped in sterile fashion. Skin anesthetization was accomplished with 1% li docaine. Anxiolysis was accomplished with 1 mg of Versed and 2 mg of Zofran intravenously. Using CT guidance, an 18-gauge spinal needle was advanced into the anterior joint space of the left h ip. Only a small amount of serosanguineous fluid measuring 0.5 cc could be aspirated. CT and MRI both demonstrate a very small left hip effusion. The sample was sent for surgical culture. The patient to lerated the procedure without difficulty. IMPRESSION: Successful CT-guided left hip aspiration. Only 0.5 cc of serosanguineous fluid could be a spirated. The sample was sent to microbiology for surgical culture. Signer Name: Chino Miller Jr, MD Signed: 07/01/2020 10:37 AM Workstation Name: [id number]
[2020-07-01] MEDS: cefTRIAXone/NS 2 GM/100 ML 2 GM/100 ML BAG IV SCH (11:13)
--- NOTE | 2020-07-01 14:12 | Progress Note ---
Assessment and Plan Cultures: SARS CoV2 PCR: negative 06/23/2020 blood culture: Haemophilus influenzae in 2 sets. Coag negative staph in 1 set. 06/25/2020 blood culture: No growth A/P: 39-year-old male with HIV, not on antiretroviral therapy since September 2019, moved here from [place]: #SIRS/sepsis: secondary to bacteremia, ?pneumonia. #Bacteremia: Haemophilus influenzae in 2 sets, source probably septic arthritis. TTE did not reveal any significant valvular abnormalities. MRI suggestive of septic arthritis in L shoulder and L hip. Ortho evaluated on 06/29/2020. Underwent CT guided aspiration of L hip on 07/01/2020, only 0.5 cc aspirated and hence was only sent for culture. Coag negative staph in 1 set, likely contaminant. #Pneumonia: CD4 unknown but was well controlled until recent, very likely to be PJP. Blood cultures positive for Haemophilus influenzae. #HIV: Not on antiretroviral therapy. Used to be undetectable, on Symtuza, has not taken meds for at least 2 months after he moved here. Risk factor is MSM. Patient contacted his employer, states his new insurance has already kicked in. Would start him on Truvada/Descovy + r/Darunavir here, upon discharge, can given prescription for Symtuza and will follow up in our clinic. HIV RNA PCR here is 364K, CD4 264 (25%). #History of left knee septic arthritis about 5 years ago: Treated with antibiotics. Recs: -continue IV Ceftriaxone 2 gm daily -Underwent CT guided aspiration of L hip on 07/01/2020, only 0.5 cc aspirated and hence was only sent for culture -Orthopedics following. Given bacteremia and MRI findings, consider washout. Given patient has been on IV abx all these days, culture may remain negative -Patient contacted his employer, states his new insurance has already kicked in. Would start him on Truvada/Descovy + r/Darunavir here, upon discharge, can given prescription for Symtuza and will follow up in our clinic Refugio Loyola MD, FACP [facility] O: [phone] F: [phone] Subjective Date of service: 07/01/20 Principal diagnosis: Pneumonia Interval history: No fever. Pain in left shoulder is slightly better, left hip still painful. Got hip aspirated Objective - Exam Narrative Exam: Physical Exam: Constitutional: Alert, cooperative. No acute distress Head, Ears, Nose: Normocephalic, atraumatic. External ears, nose normal Eyes: Conjunctivae/corneas clear. No icterus. No ptosis. Neck: Supple, no meningeal signs Cardiovascular: S1, S2 normal. Respiratory: Good air entry, clear to auscultation bilaterally GI: Soft, non-tender; bowel sounds normal. No peritoneal signs Musculoskeletal: Left shoulder and left hip with pain, reduced range of motion Skin: No rash or abscess Hem/Lymphatic: No palpable cervical or supraclavicular nodes. No lymphangitis Psych: Mood ok. Affect normal Neurological: Awake, alert, oriented. No gross abnormality - Constitutional Vitals: Vital Signs Temp Pulse Resp BP Pulse Ox 98.3 F 100 H 18 153/100 98 07/01/20 05:13 07/01/20 10:25 07/01/20 10:25 07/01/20 10:25 07/01/20 10:25 Temperature -Last 24 Hours Temperature 98.3 F Temperature 98.1 F Temperature 97.6 F - Labs CBC & Chem 7: 06/28/20 06:03 06/28/20 06:03 Labs: Abnormal lab results 06/23/20 Range/Units 15:29 Lymph Enumerat CD4/CD8 0.43 L (0.86-5.00) % CD3 Cells 86 H (57-85) % % CD4 Cells 25 L (30-61) % Absolute CD4 Count 266 L (490-1740) cells/uL % CD8 Cells 58 H (12-42) % % CD19 Cells 3 L (6-29) % Absolute CD19 Count 25 L (110-660) cells/uL
[2020-07-01] MEDS ORDERED: EMTRICITABINE 200 MG, TENOFOVIR 300 MG PO SCH (15:00)
[2020-07-01] MEDS: EMTRICITABINE 200 MG CAP PO SCH (15:21)
[2020-07-01] MEDS: RITONAVIR 100 MG TAB PO SCH (15:22)
[2020-07-01] MEDS: DARUNAVIR 800 MG TAB PO SCH (15:22)
[2020-07-01] MEDS: TENOFOVIR 300 MG TAB PO SCH (15:22)
[2020-07-01] MEDS: SODIUM CHLORIDE 0.9% 1000 ML 1,000 ML IV SCH (15:34)
--- NOTE | 2020-07-01 17:08 | Progress Note ---
Assessment and Plan Assessment and plan: -COVID-19 test negative Current Visit: Yes Status: Acute Plan to address problem: Patient negative for Covi negative --Severe sepsis with multifactorial etiology primarily atypical pneumonia and septic joint. Imaging studies pending we will place a mid line for IV access. To be able to obtain the MRI as ordered by ID. Treat the underlying cause --left shoulder pain and left hip pain Patient refused MRI , and empiric antibiotics Ortho evaluated the patient, recommended IR /CT-guided drainage of abscess, and cultures s/p CT-guided aspiration of the left hip aspirated only 5 cc of joint fluid, sent for cultures --Left upper and lower extremity hemiplegia and tenderness Likely secondary to infectious process nevertheless will rule out CVA. PT OT evaluate and treat. --Secondary coagulopathy CTA negative for PE, lower extremities venous Doppler negative for DVT --Atypical pneumonia secondary to influenza A Current Visit: Yes Status: Acute Plan to address problem: Patient initiated on ceftriaxone --HIV (human immunodeficiency virus infection) Current Visit: Yes Status: Acute Plan to address problem: CD4 count is unknown. Patient has not been antiretroviral agents for 9 months. Resume home medication --DVT prophylaxis Current Visit: Yes Status: Acute Plan to address problem: Heparin We will closely monitor the patient and adjust the management as needed Plan of care reviewed with the patient and his nurse as well as the case work aide 39-year-old -Indian male with known history of HIV with unknown CD4 count noncompliant with antiretroviral therapy presents to the emergency room today complaining of fever, fatigue, generalized malaise and joint pains which has been ongoing for the past 2 days. He has also had some knee pain and shoulder pain. He denies any fall or trauma to these joints. He has been having difficulty ambulating secondary to the pain. He has also been having m inimal shortness of breath. He denies any chest pain. Patient was diagnosed with HIV and septic arthritis about 5 years ago while in [place] . He subsequently had needle aspiration of the left knee at that time. Patient moved to [place] sometime in September 2019 and has not had any recent travel. He works from home and denies any sick contacts. He has not been on his medication since August when he moved to [place] as he has not had insurance established at his new job. Work-up today in the emergency room chest x-ray reveals: mild/early edema or atypical infectious/inflammatory process. Patient is admitted with pneumonia and will rule out COVID-19. Day#2 Patient has lots of pain Day #3 06/25/2020 Patient resting comfortably Patient uncooperative during MRI x2 Blood cultures-haemophilus influenza A positive in 2 out of 2 bottles 06/26: Remain septic at this time. Continue antibiotic therapy. Obtain imaging studies as updated. With the patient's permission discussed clinical care with the mom. We will also request for records from [facility] in [place]. 06/27: Xanax ordered for Patient to be able to obtain MRI, Continue abx, await PT/OT 06/28: Patient clinically improving. MRI reviewed shows septic joint. Considering patient's clinical improvement will still awaiting orthopedic surgeon consult of reconsulted again. Continue current antibiotic. If patient continues to have persistent fever may need to be transferred if orthopedic surgeon is unable to see the patient 24 hours. 06/29; orthopedic evaluation noted and appreciated, recommended CT-guided aspiration of the joint 07/01; patient underwent a CT-guided biopsy aspiration Follow fluid analysis and cultures, patient tolerated the procedure well History Interval history: I seen and examined the patient at the bedside Chart and medications reviewed Patient is Covid negative Had CT guided aspiration of left hip[rec by orthopedic] No new complaints Vital signs noted Hospitalist Physical - Constitutional Vitals: Temp Pulse Resp BP Pulse Ox 98.3 F 100 H 18 153/100 98 07/01/20 05:13 07/01/20 10:25 07/01/20 10:25 07/01/20 10:25 07/01/20 10:25 General appearance: Present: no acute distress, well-nourished - EENT Eyes: Present: PERRL, EOM intact - Neck Neck: Present: supple, normal ROM - Respiratory Respiratory effort: normal Respiratory: bilateral: diminished, rhonchi, negative: rales, wheezing - Cardiovascular Rhythm: regular - Extremities Extremities: no ischemia, No edema - Abdominal General gastrointestinal: soft, non-tender, non-distended - Integumentary Integumentary: Present: clear, warm - Psychiatric Psychiatric: appropriate mood/affect, cooperative - Neurologic Neurologic: moves all extremities Results - Labs CBC & Chem 7: 06/28/20 06:03 06/28/20 06:03 Labs: Laboratory Last Values WBC 7.1 K/mm3 (4.5-11.0) 06/28/20 06:03 RBC 3.07 M/mm3 (3.65-5.03) L 06/28/20 06:03 Hgb 9.2 gm/dl (11.8-15.2) L 06/28/20 06:03 Hct 27.0 % (35.5-45.6) L 06/28/20 06:03 MCV 88 fl (84-94) 06/28/20 06:03 MCH 30 pg (28-32) 06/28/20 06:03 MCHC 34 % (32-34) 06/28/20 06:03 RDW 14.8 % (13.2-15.2) 06/28/20 06:03 Plt Count 512 K/mm3 (140-440) H 06/28/20 06:03 Lymph % (Auto) 24.7 % (13.4-35.0) 06/26/20 03:57 [place]ergus % (Auto) 14.0 % (0.0-7.3) H 06/26/20 03:57 Eos % (Auto) 0.1 % (0.0-4.3) 06/26/20 03:57 Baso % (Auto) 0.1 % (0.0-1.8) 06/26/20 03:57 Lymph # (Auto) 2.1 K/mm3 (1.2-5.4) 06/26/20 03:57 Fergus # (Auto) 1.2 K/mm3 (0.0-0.8) H 06/26/20 03:57 Eos # (Auto) 0.0 K/mm3 (0.0-0.4) 06/26/20 03:57 Baso # (Auto) 0.0 K/mm3 (0.0-0.1) 06/26/20 03:57 Seg Neutrophils % 61.1 % (40.0-70.0) 06/26/20 03:57 Seg Neutrophils # 5.1 K/mm3 (1.8-7.7) 06/26/20 03:57 Abs Lymphs (Manual) 1003 cells/uL (850-3900) 06/23/20 15:29 PT 13.4 Sec. (12.2-14.9) 06/24/20 04:40 INR 1.04 (0.87-1.13) 06/24/20 04:40 D-Dimer 1312.19 ng/mlDDU (0-234) H 06/23/20 03:25 Sodium 131 mmol/L (137-145) L 06/28/20 06:03 Potassium 3.8 mmol/L (3.6-5.0) 06/28/20 06:03 Chloride 97.0 mmol/L (98-107) L 06/28/20 06:03 Carbon Dioxide 30 mmol/L (22-30) 06/28/20 06:03 Anion Gap 8 mmol/L 06/28/20 06:03 BUN 12 mg/dL (9-20) 06/28/20 06:03 Creatinine 0.7 mg/dL (0.8-1.3) L 06/28/20 06:03 Estimated GFR > 60 ml/min 06/28/20 06:03 BUN/Creatinine Ratio 17 % 06/28/20 06:03 Glucose 94 mg/dL (75-100) 06/28/20 06:03 Calcium 8.3 mg/dL (8.4-10.2) L 06/28/20 06:03 Total Bilirubin 0.40 mg/dL (0.1-1.2) 06/26/20 03:57 AST 9 units/L (5-40) 06/26/20 03:57 ALT 7 units/L (7-56) 06/26/20 03:57 Alkaline Phosphatase 54 units/L (35-129) 06/26/20 03:57 Total Creatine Kinase 24 units/L (55-170) L 06/23/20 00:12 Total Protein 8.3 g/dL (6.3-8.2) H 06/26/20 03:57 Albumin 2.1 g/dL (3.9-5) L 06/26/20 03:57 Albumin/Globulin Ratio 0.3 % 06/26/20 03:57 Lipase 15 units/L (13-60) 06/23/20 00:12 Procalcitonin 1.65 ng/mL (<0.15) 06/23/20 03:25 Urine Color Yellow (Yellow) 06/23/20 01:38 Urine Turbidity Clear (Clear) 06/23/20 01:38 Urine pH 5.0 (5.0-7.0) 06/23/20 01:38 Ur Specific [place] 1.020 (1.003-1.030) 06/23/20 01:38 Urine Protein 100 mg/dl mg/dL (Negative) 06/23/20 01:38 Urine Glucose (UA) Neg mg/dL (Negative) 06/23/20 01:38 Urine Ketones Neg mg/dL (Negative) 06/23/20 01:38 Urine Blood Lg (Negative) 06/23/20 01:38 Urine Nitrite Neg (Negative) 06/23/20 01:38 Urine Bilirubin Neg (Negative) 06/23/20 01:38 Urine Urobilinogen 4.0 mg/dL (<2.0) 06/23/20 01:38 Ur Leukocyte Esterase Neg (Negative) 06/23/20 01:38 Urine WBC (Auto) 12.0 /HPF (0.0-6.0) H 06/23/20 01:38 Urine RBC (Auto) 46.0 /HPF (0.0-6.0) 06/23/20 01:38 U Epithel Cells (Auto) 1.0 /HPF (0-13.0) 06/23/20 01:38 Urine Mucus Few /HPF 06/23/20 01:38 Lymph Enumerat CD4/CD8 0.43 (0.86-5.00) L 06/23/20 15:29 % CD3 Cells 86 % (57-85) H 06/23/20 15:29 Absolute CD3 Count 0861 cells/uL (840-3060) 06/23/20 15:29 % CD4 Cells 25 % (30-61) L 06/23/20 15:29 Absolute CD4 Count 266 cells/uL (490-1740) L 06/23/20 15:29 % CD8 Cells 58 % (12-42) H 06/23/20 15:29 Absolute CD8 Count 622 cells/uL (180-1170) 06/23/20 15:29 % CD19 Cells 3 % (6-29) L 06/23/20 15:29 Absolute CD19 Count 25 cells/uL (110-660) L 06/23/20 15:29 Coronavirus (PCR) Negative (Negative) 06/23/20 Unknown HIV-1 RNA PCR copies/ml 155235 Copies/mL H 06/23/20 15:29 HIV-1 RNA (PCR) log 5.56 Log cps/mL H 06/23/20 15:29 Microbiology: Microbiology 07/01/20 Unknown Hip - Left Surgical Culture - Preliminary 06/25/20 14:45 Peripheral/Venous Blood Culture - Final NO GROWTH AFTER 5 DAYS - Diagnostic Impressions Diagnostic Impressions: Echocardiogram 06/24/20 14:54 Transthoracic Echocardiogram Indication: Endocarditis BP: 170/93 HR: 118 Conclusions *Global left ventricular systolic function is normal. *The estimated ejection fraction is 55-60%. *Mild concentric left ventricular hypertrophy is observed. *The right ventricular global systolic function is normal. *The right ventricle is mildly dilated. *The aortic valve is trileaflet. The leaflets are thin with normal excursion. There is no aortic stenosis or regurgitation present. *There is trace of mitral regurgitation. *There is mild tricuspid regurgitation. Findings Left Ventricle: The left ventricular chamber size is normal. Mild concentric left ventricular hypertrophy is observed. Global left ventricular wall motion and contractility are within normal limits. Global left ventricular systolic function is normal. The estimated ejection fraction is 55-60%. Left Atrium: The left atrial chamber size is normal. Right Ventricle: The right ventricle is mildly dilated. The right ventricular global systolic function is normal. Right Atrium: The right atrium is mildly dilated. Aortic Valve: The aortic valve is trileaflet. The leaflets are thin with normal excursion. There is no aortic stenosis or regurgitation present. Mitral Valve: The mitral valve leaflets appear normal. There is trace of mitral regurgitation. Tricuspid Valve: The tricuspid valve leaflets are normal. There is mild tricuspid regurgitation. Pulmonic Valve: There is no evidence of pulmonic valve thickening. There is trace pulmonic regurgitation. Pericardium: There is no pericardial effusion. Aorta: The aorta appears normal. Venous: The inferior vena cava appears normal in size. Measurements Chambers 2D Name Value Normal Range IVSd (2D) 1.16 cm (0.6 - 1.1) LVPWd (2D) 1.19 cm (0.6 - 1.1) LVIDd (2D) 4.61 cm (3.7 - 5.6) LVIDs (2D) 3.17 cm (2 - 3.8) LV FS (2D) 31.2 % - EF Teichholz (2D) 59.02 % - Ao root diameter (2D) 2.85 cm (2 - 3.7) Volumes/Mass Name Value Normal Range LA ESV SP 4CH (A/L) 47.43 ml - LA ESV SP 2CH (A/L) 81.49 ml - LA ESV BP (A/L) 63.56 ml - LA ESV BP (A/L) index 33.45 ml/m2 - LA ESV SP 4CH (MOD) 40.85 ml - LA ESV SP 2CH (MOD) 76.91 ml - LA ESV BP (MOD) 56.95 ml - LA ESV BP (MOD) index 29.97 ml/m2 - Aortic Valve Name Value Normal Range AV Vmax 1.52 m/sec - AV VTI 25.38 cm - AV peak gradient 9.26 mmHg - AV mean gradient 5.12 mmHg - LVOT diameter 2.18 cm - LVOT Vmax 1.34 m/sec - LVOT VTI 20.19 cm - LVOT peak gradient 7.23 mmHg - LVOT mean gradient 2.75 mmHg - SV LVOT 75.66 ml - MATT (continuity Vmax) 3.31 cm2 - MATT (continuity VTI) 2.98 cm2 - Ascending Ao 2.83 cm - Mitral Valve Name Value Normal Range MV PHT 27.95 msec - MVA (PHT) 7.87 cm2 - Tricuspid Valve Name Value Normal Range TR Vmax 3.61 m/sec - TR peak gradient 52 mmHg - RAP 3 mmHg - RVSP 55 mmHg - IVC diameter 1.73 cm (1.2 - 2.3) Pulmonic Valve/Qp:Qs Name Value Normal Range PV Vmax 0.63 m/sec - PV peak gradient 2.39 mmHg - NC end-diastolic Vmax 1.35 m/sec - PV acceleration time 91.34 msec - NDUM: 06/25/20 1210 Amended Report Transthoracic Echocardiogram Indication: Endocarditis BP: 170/93 HR: 118 Conclusions *Global left ventricular systolic function is normal. *The estimated ejection fraction is 55-60%. *Mild concentric left ventricular hypertrophy is observed. *The right ventricular global systolic function is normal. *The right ventricle is mildly dilated. *The aortic valve is trileaflet. The leaflets are thin with normal excursion. There is no aortic stenosis or regurgitation present. *There is trace of mitral regurgitation. *There is mild tricuspid regurgitation. *no obvious vegatations noted on mitral or aortic valve or tricupid, if clinically indicated consider matteo Findings Left Ventricle: The left ventricular chamber size is normal. Mild concentric left ventricular hypertrophy is observed. Global left ventricular wall motion and contractility are within normal limits. Global left ventricular systolic function is normal. The estimated ejection fraction is 55-60%. Left Atrium: The left atrial chamber size is normal. Right Ventricle: The right ventricle is mildly dilated. The right ventricular global systolic function is normal. Right Atrium: The right atrium is mildly dilated. Aortic Valve: The aortic valve is trileaflet. The leaflets are thin with normal excursion. There is no aortic stenosis or regurgitation present. Mitral Valve: The mitral valve leaflets appear normal. There is trace of mitral regurgitation. Tricuspid Valve: The tricuspid valve leaflets are normal. There is mild tricuspid regurgitation. Pulmonic Valve: There is no evidence of pulmonic valve thickening. There is trace pulmonic regurgitation. Pericardium: There is no pericardial effusion. Aorta: The aorta appears normal. Venous: The inferior vena cava appears normal in size. Measurements Chambers 2D Name Value Normal Range IVSd (2D) 1.16 cm (0.6 - 1.1) LVPWd (2D) 1.19 cm (0.6 - 1.1) LVIDd (2D) 4.61 cm (3.7 - 5.6) LVIDs (2D) 3.17 cm (2 - 3.8) LV FS (2D) 31.2 % - EF Teichholz (2D) 59.02 % - Ao root diameter (2D) 2.85 cm (2 - 3.7) Volumes/Mass Name Value Normal Range LA ESV SP 4CH (A/L) 47.43 ml - LA ESV SP 2CH (A/L) 81.49 ml - LA ESV BP (A/L) 63.56 ml - LA ESV BP (A/L) index 33.45 ml/m2 - LA ESV SP 4CH (MOD) 40.85 ml - LA ESV SP 2CH (MOD) 76.91 ml - LA ESV BP (MOD) 56.95 ml - LA ESV BP (MOD) index 29.97 ml/m2 - Aortic Valve Name Value Normal Range AV Vmax 1.52 m/sec - AV VTI 25.38 cm - AV peak gradient 9.26 mmHg - AV mean gradient 5.12 mmHg - LVOT diameter 2.18 cm - LVOT Vmax 1.34 m/sec - LVOT VTI 20.19 cm - LVOT peak gradient 7.23 mmHg - LVOT mean gradient 2.75 mmHg - SV LVOT 75.66 ml - MATT (continuity Vmax) 3.31 cm2 - MATT (continuity VTI) 2.98 cm2 - Ascending Ao 2.83 cm - Mitral Valve Name Value Normal Range MV PHT 27.95 msec - MVA (PHT) 7.87 cm2 - Tricuspid Valve Name Value Normal Range TR Vmax 3.61 m/sec - TR peak gradient 52 mmHg - RAP 3 mmHg - RVSP 55 mmHg - IVC diameter 1.73 cm (1.2 - 2.3) Pulmonic Valve/Qp:Qs Name Value Normal Range PV Vmax 0.63 m/sec - PV peak gradient 2.39 mmHg - NC end-diastolic Vmax 1.35 m/sec - PV acceleration time 91.34 msec - Bishop/IV: Voiding Method Urinal IV Catheter Type [Left Hand] INT / Saline Lock IV Catheter Type [Left Peripheral IV Antecubital] IV Catheter Type [Right Peripheral IV Antecubital] Active Medications - Current Medications Current Medications: Generic Name Dose Route Start Last Admin Trade Name Freq PRN Reason Stop Dose Admin Acetaminophen 650 mg 06/23/20 03:36 06/28/20 05:36 Acetaminophen 325 Mg Tab PO 650 mg Q4H PRN Administration Pain MILD(1-3)/Fever >100.5/ISRAEL Darunavir 800 mg 07/01/20 15:00 07/01/20 15:22 Darunavir 800 Mg Tab PO 800 mg QDAY DEVONTE Administration Emtricitabine 200 mg 07/01/20 15:00 07/01/20 15:21 Emtricitabine 200 Mg Cap PO 200 mg QDAY DEVONTE Administration Hydromorphone HCl 0.25 mg 06/26/20 12:41 07/01/20 14:46 Hydromorphone 1 Mg/1 Ml Inj IV 0.25 mg Q3H PRN Administration Pain , Severe (7-10) Sodium Chloride 1,000 mls @ 75 mls/hr 06/23/20 03:45 07/01/20 15:34 Nacl 0.9% 1000 Ml IV 75 mls/hr DIRECT DEVONTE Administration Ceftriaxone Sodium 2 gm in 100 mls @ 200 mls/hr 06/25/20 14:00 07/01/20 11:13 Rocephin/Ns 2 Gm/100 Ml IV 200 mls/hr Q24HR DEVONTE Administration Protocol Magnesium Hydroxide 30 ml 06/23/20 03:36 Magnesium Hydroxide (Mom) Oral Liqd Udc PO Q4H PRN Constipation Ondansetron HCl 4 mg 06/23/20 03:36 Ondansetron 4 Mg/2 Ml Inj IV Q8H PRN Nausea And Vomiting Ritonavir 100 mg 07/01/20 15:00 07/01/20 15:22 Ritonavir 100 Mg Tab PO 100 mg QDAY DEVONTE Administration Sodium Chloride 10 ml 06/23/20 10:00 07/01/20 11:13 Sodium Chloride 0.9% 10 Ml Flush Syringe IV 10 ml BID DEVONTE Administration Sodium Chloride 10 ml 06/23/20 03:36 06/30/20 16:55 Sodium Chloride 0.9% 10 Ml Flush Syringe IV 10 ml PRN PRN Administration LINE FLUSH Tenofovir Disoproxil Fumarate 300 mg 07/01/20 15:00 07/01/20 15:22 Tenofovir 300 Mg Tab PO 300 mg QDAY DEVONTE Administration Nutrition/Malnutrition Assess - Dietary Evaluation Nutrition/Malnutrition Findings: Nutrition Notes Start: 06/30/20 14:35 Freq: Status: Active Protocol: Document 06/30/20 14:35 OCTAVIO (Rec: 06/30/20 14:39 [facility] [id number]) Nutrition Notes Need for Assessment generated from: LOS Initial or Follow up Brief Note Current Diet Renal Height 5 ft 9 in Weight 96.3 kg [place] Body Weight (kg) 72.72 BMI 31.3 Subjective/Other Information Pt screened for LOS. He has consumed 92% of meals since admission. Percent of energy/protein needs met: 100% energy and pro Current % PO Good (75-100%) Minimum of two criteria No Is patient on ventilator? No Is Patient Ambulatory and/or Out of Bed Yes REE-([place]-St. Jeor-ambulatory/OOB) [ 5056.894 NUTR.MSJOOB] Kcal/Kg value to use for calculation 20 Approximate Energy Requirements Using 1926 kcal/Kg Calculation Used for Recommendations Kcal/kg Additional Notes Pro needs 0.8-1g/kg adjBW: 68- 85g/day Fluid needs 1ml/kcal Nutrition Intervention Revisit per MD consult or patient Sign Off request:
[2020-07-02] MEDS: SODIUM CHLORIDE 0.9% 1000 ML 1,000 ML IV SCH ×2 (04:51→18:46)
[2020-07-02] MEDS: HYDROmorphone 1 MG/1 ML INJ IV PRN ×2 (04:57→21:25)
[2020-07-02] MEDS: cefTRIAXone/NS 2 GM/100 ML 2 GM/100 ML BAG IV SCH (09:12)
[2020-07-02] MEDS: TENOFOVIR 300 MG TAB PO SCH (09:12)
[2020-07-02] MEDS: RITONAVIR 100 MG TAB PO SCH (09:12)
[2020-07-02] MEDS: DARUNAVIR 800 MG TAB PO SCH (09:13)
[2020-07-02] MEDS: EMTRICITABINE 200 MG CAP PO SCH (09:13)
--- NOTE | 2020-07-02 11:41 | Progress Note ---
Assessment and Plan Cultures: SARS CoV2 PCR: negative 06/23/2020 blood culture: Haemophilus influenzae in 2 sets. Coag negative staph in 1 set. 06/25/2020 blood culture: No growth 07/01/2020 Left hip aspiration: few PMNs on Gram stain. Culture in process A/P: 39-year-old male with HIV, not on antiretroviral therapy, moved here from [place]: #SIRS/sepsis: secondary to bacteremia, ?pneumonia. #Bacteremia: Haemophilus influenzae in 2 sets, source probably septic arthritis. TTE did not reveal any significant valvular abnormalities. MRI suggestive of septic arthritis in L shoulder and L hip. Ortho evaluated on 06/29/2020. Underwent CT guided aspiration of L hip on 07/01/2020, only 0.5 cc aspirated and hence was only sent for culture. Coag negative staph in 1 set, likely contaminant. #HIV: Not on antiretroviral therapy. Used to be undetectable, on Symtuza, has not taken meds for at least 2 months after he moved here. Risk factor is MSM. Patient contacted his employer, states his new insurance has already kicked in. Started Truvada/Descovy + r/Darunavir here, upon discharge, can given pres cription for Symtuza and will follow up in our clinic. HIV RNA PCR here is 364K, CD4 264 (25%). #History of left knee septic arthritis about 5 years ago: Treated with antibiotics. Recs: -continue IV Ceftriaxone 2 gm daily -Underwent CT guided aspiration of L hip on 07/01/2020, only 0.5 cc aspirated and hence was only sent for culture -Orthopedics following. Given bacteremia and MRI findings, consider washout. Given patient has been on IV abx all these days, culture may remain negative -Patient contacted his employer, states his new insurance has already kicked in. Hence, he has been started on Truvada + ritonavir boosted Darunavir here, upon discharge, please give prescription for PO Symtuza 1 tab daily x 30 days, and will follow up in our clinic for continued care Refugio Loyola MD, FACP [facility] O: [phone] F: [phone] Subjective Date of service: 07/02/20 Principal diagnosis: Pneumonia Interval history: No fever. Continues to have pain in left hip. Having difficulty with ambulation. Objective - Exam Narrative Exam: Physical Exam: Constitutional: Alert, cooperative. No acute distress Head, Ears, Nose: Normocephalic, atraumatic. External ears, nose normal Eyes: Conjunctivae/corneas clear. No icterus. No ptosis. Neck: Supple, no meningeal signs Cardiovascular: S1, S2 normal. Respiratory: Good air entry, clear to auscultation bilaterally GI: Soft, non-tender; bowel sounds normal. No peritoneal signs Musculoskeletal: Left shoulder and left hip with pain, reduced range of motion Skin: No rash or abscess Hem/Lymphatic: No palpable cervical or supraclavicular nodes. No lymphangitis Psych: Mood ok. Affect normal Neurological: Awake, alert, oriented. No gross abnormality - Constitutional Vitals: Vital Signs Temp Pulse Resp BP Pulse Ox 98.0 F 91 H 20 134/85 99 07/02/20 03:46 07/02/20 03:46 07/02/20 05:27 07/02/20 03:46 07/02/20 03:46 Temperature -Last 24 Hours Temperature 98.0 F Temperature 98.3 F Temperature 98.2 F - Labs CBC & Chem 7: 06/28/20 06:03 06/28/20 06:03
--- NOTE | 2020-07-02 18:14 | Progress Note ---
Assessment and Plan Assessment and plan: -COVID-19 test negative Current Visit: Yes Status: Acute Plan to address problem: Patient negative for Covi negative --Severe sepsis with multifactorial etiology primarily atypical pneumonia and septic joint. Imaging studies pending we will place a mid line for IV access. To be able to obtain the MRI as ordered by ID. Treat the underlying cause --left shoulder pain and left hip pain Patient refused MRI , and empiric antibiotics Ortho evaluated the patient, recommended IR /CT-guided drainage of abscess, and cultures s/p CT-guided aspiration of the left hip aspirated only 5 cc of joint fluid, sent for cultures --Left upper and lower extremity hemiplegia and tenderness Likely secondary to infectious process nevertheless will rule out CVA. PT OT evaluate and treat. --Secondary coagulopathy CTA negative for PE, lower extremities venous Doppler negative for DVT --Atypical pneumonia secondary to influenza A Current Visit: Yes Status: Acute Plan to address problem: Patient initiated on ceftriaxone --HIV (human immunodeficiency virus infection) Current Visit: Yes Status: Acute Plan to address problem: CD4 count is unknown. Patient has not been antiretroviral agents for 9 months. Resume home medication --DVT prophylaxis Current Visit: Yes Status: Acute Plan to address problem: Heparin We will closely monitor the patient and adjust the management as needed Plan of care reviewed with the patient and his nurse as well as the transplant case manager 39-year-old -Luxembourger male with known history of HIV with unknown CD4 count noncompliant with antiretroviral therapy presents to the emergency room today complaining of fever, fatigue, generalized malaise and joint pains which has been ongoing for the past 2 days. He has also had some knee pain and shoulder pain. He denies any fall or trauma to these joints. He has been having difficulty ambulating secondary to the pain. He has also been having m inimal shortness of breath. He denies any chest pain. Patient was diagnosed with HIV and septic arthritis about 5 years ago while in [place] . He subsequently had needle aspiration of the left knee at that time. Patient moved to [place] sometime in September 2019 and has not had any recent travel. He works from home and denies any sick contacts. He has not been on his medication since August when he moved to [place] as he has not had insurance established at his new job. Work-up today in the emergency room chest x-ray reveals: mild/early edema or atypical infectious/inflammatory process. Patient is admitted with pneumonia and will rule out COVID-19. Day#2 Patient has lots of pain Day #3 06/25/2020 Patient resting comfortably Patient uncooperative during MRI x2 Blood cultures-haemophilus influenza A positive in 2 out of 2 bottles 06/26: Remain septic at this time. Continue antibiotic therapy. Obtain imaging studies as updated. With the patient's permission discussed clinical care with the mom. We will also request for records from [facility] in [place]. 06/27: Xanax ordered for Patient to be able to obtain MRI, Continue abx, await PT/OT 06/28: Patient clinically improving. MRI reviewed shows septic joint. Considering patient's clinical improvement will still awaiting orthopedic surgeon consult of reconsulted again. Continue current antibiotic. If patient continues to have persistent fever may need to be transferred if orthopedic surgeon is unable to see the patient 24 hours. 06/29; orthopedic evaluation noted and appreciated, recommended CT-guided aspiration of the joint 07/01; patient underwent a CT-guided biopsy aspiration Follow fluid analysis and cultures, patient tolerated the procedure well History Interval history: I have seen and examined the patient at the bedside Patient feels better No new complaints Patient has aspiration of hip joint yesterday On IV antibiotics Vital signs noted Hospitalist Physical - Constitutional Vitals: Temp Pulse Resp BP Pulse Ox 98.5 F 110 H 19 114/82 98 07/02/20 11:43 07/02/20 11:43 07/02/20 11:43 07/02/20 11:43 07/02/20 11:43 General appearance: Present: no acute distress, well-nourished - EENT Eyes: Present: PERRL, EOM intact - Neck Neck: Present: supple, normal ROM - Respiratory Respiratory effort: normal Respiratory: bilateral: diminished, negative: rales, rhonchi, wheezing - Cardiovascular Rhythm: regular Heart Sounds: Present: S1 & S2 - Extremities Extremities: no ischemia, No edema - Abdominal General gastrointestinal: soft, non-tender, non-distended, normal bowel sounds - Integumentary Integumentary: Present: clear, warm - Psychiatric Psychiatric: appropriate mood/affect, cooperative - Neurologic Neurologic: moves all extremities Results - Labs CBC & Chem 7: 06/28/20 06:03 06/28/20 06:03 Labs: Laboratory Last Values WBC 7.1 K/mm3 (4.5-11.0) 06/28/20 06:03 RBC 3.07 M/mm3 (3.65-5.03) L 06/28/20 06:03 Hgb 9.2 gm/dl (11.8-15.2) L 06/28/20 06:03 Hct 27.0 % (35.5-45.6) L 06/28/20 06:03 MCV 88 fl (84-94) 06/28/20 06:03 MCH 30 pg (28-32) 06/28/20 06:03 MCHC 34 % (32-34) 06/28/20 06:03 RDW 14.8 % (13.2-15.2) 06/28/20 06:03 Plt Count 512 K/mm3 (140-440) H 06/28/20 06:03 Lymph % (Auto) 24.7 % (13.4-35.0) 06/26/20 03:57 [place] % (Auto) 14.0 % (0.0-7.3) H 06/26/20 03:57 Eos % (Auto) 0.1 % (0.0-4.3) 06/26/20 03:57 Baso % (Auto) 0.1 % (0.0-1.8) 06/26/20 03:57 Lymph # (Auto) 2.1 K/mm3 (1.2-5.4) 06/26/20 03:57 [place] # (Auto) 1.2 K/mm3 (0.0-0.8) H 06/26/20 03:57 Eos # (Auto) 0.0 K/mm3 (0.0-0.4) 06/26/20 03:57 Baso # (Auto) 0.0 K/mm3 (0.0-0.1) 06/26/20 03:57 Seg Neutrophils % 61.1 % (40.0-70.0) 06/26/20 03:57 Seg Neutrophils # 5.1 K/mm3 (1.8-7.7) 06/26/20 03:57 Abs Lymphs (Manual) 1003 cells/uL (850-3900) 06/23/20 15:29 PT 13.4 Sec. (12.2-14.9) 06/24/20 04:40 INR 1.04 (0.87-1.13) 06/24/20 04:40 D-Dimer 1312.19 ng/mlDDU (0-234) H 06/23/20 03:25 Sodium 131 mmol/L (137-145) L 06/28/20 06:03 Potassium 3.8 mmol/L (3.6-5.0) 06/28/20 06:03 Chloride 97.0 mmol/L (98-107) L 06/28/20 06:03 Carbon Dioxide 30 mmol/L (22-30) 06/28/20 06:03 Anion Gap 8 mmol/L 06/28/20 06:03 BUN 12 mg/dL (9-20) 06/28/20 06:03 Creatinine 0.7 mg/dL (0.8-1.3) L 06/28/20 06:03 Estimated GFR > 60 ml/min 06/28/20 06:03 BUN/Creatinine Ratio 17 % 06/28/20 06:03 Glucose 94 mg/dL (75-100) 06/28/20 06:03 Calcium 8.3 mg/dL (8.4-10.2) L 06/28/20 06:03 Total Bilirubin 0.40 mg/dL (0.1-1.2) 06/26/20 03:57 AST 9 units/L (5-40) 06/26/20 03:57 ALT 7 units/L (7-56) 06/26/20 03:57 Alkaline Phosphatase 54 units/L (35-129) 06/26/20 03:57 Total Creatine Kinase 24 units/L (55-170) L 06/23/20 00:12 Total Protein 8.3 g/dL (6.3-8.2) H 06/26/20 03:57 Albumin 2.1 g/dL (3.9-5) L 06/26/20 03:57 Albumin/Globulin Ratio 0.3 % 06/26/20 03:57 Lipase 15 units/L (13-60) 06/23/20 00:12 Procalcitonin 1.65 ng/mL (<0.15) 06/23/20 03:25 Urine Color Yellow (Yellow) 06/23/20 01:38 Urine Turbidity Clear (Clear) 06/23/20 01:38 Urine pH 5.0 (5.0-7.0) 06/23/20 01:38 Ur Specific [place] 1.020 (1.003-1.030) 06/23/20 01:38 Urine Protein 100 mg/dl mg/dL (Negative) 06/23/20 01:38 Urine Glucose (UA) Neg mg/dL (Negative) 06/23/20 01:38 Urine Ketones Neg mg/dL (Negative) 06/23/20 01:38 Urine Blood Lg (Negative) 06/23/20 01:38 Urine Nitrite Neg (Negative) 06/23/20 01:38 Urine Bilirubin Neg (Negative) 06/23/20 01:38 Urine Urobilinogen 4.0 mg/dL (<2.0) 06/23/20 01:38 Ur Leukocyte Esterase Neg (Negative) 06/23/20 01:38 Urine WBC (Auto) 12.0 /HPF (0.0-6.0) H 06/23/20 01:38 Urine RBC (Auto) 46.0 /HPF (0.0-6.0) 06/23/20 01:38 U Epithel Cells (Auto) 1.0 /HPF (0-13.0) 06/23/20 01:38 Urine Mucus Few /HPF 06/23/20 01:38 Lymph Enumerat CD4/CD8 0.43 (0.86-5.00) L 06/23/20 15:29 % CD3 Cells 86 % (57-85) H 06/23/20 15:29 Absolute CD3 Count 0861 cells/uL (840-3060) 06/23/20 15:29 % CD4 Cells 25 % (30-61) L 06/23/20 15:29 Absolute CD4 Count 266 cells/uL (490-1740) L 06/23/20 15:29 % CD8 Cells 58 % (12-42) H 06/23/20 15:29 Absolute CD8 Count 622 cells/uL (180-1170) 06/23/20 15:29 % CD19 Cells 3 % (6-29) L 06/23/20 15:29 Absolute CD19 Count 25 cells/uL (110-660) L 06/23/20 15:29 Coronavirus (PCR) Negative (Negative) 06/23/20 Unknown HIV-1 RNA PCR copies/ml [id number] Copies/mL H 06/23/20 15:29 HIV-1 RNA (PCR) log 5.56 Log cps/mL H 06/23/20 15:29 Microbiology: Microbiology 07/01/20 Unknown Hip - Left Surgical Culture - Preliminary - Diagnostic Impressions Diagnostic Impressions: Echocardiogram 06/24/20 14:54 Transthoracic Echocardiogram Indication: Endocarditis BP: 170/93 HR: 118 Conclusions *Global left ventricular systolic function is normal. *The estimated ejection fraction is 55-60%. *Mild concentric left ventricular hypertrophy is observed. *The right ventricular global systolic function is normal. *The right ventricle is mildly dilated. *The aortic valve is trileaflet. The leaflets are thin with normal excursion. There is no aortic stenosis or regurgitation present. *There is trace of mitral regurgitation. *There is mild tricuspid regurgitation. Findings Left Ventricle: The left ventricular chamber size is normal. Mild concentric left ventricular hypertrophy is observed. Global left ventricular wall motion and contractility are within normal limits. Global left ventricular systolic function is normal. The estimated ejection fraction is 55-60%. Left Atrium: The left atrial chamber size is normal. Right Ventricle: The right ventricle is mildly dilated. The right ventricular global systolic function is normal. Right Atrium: The right atrium is mildly dilated. Aortic Valve: The aortic valve is trileaflet. The leaflets are thin with normal excursion. There is no aortic stenosis or regurgitation present. Mitral Valve: The mitral valve leaflets appear normal. There is trace of mitral regurgitation. Tricuspid Valve: The tricuspid valve leaflets are normal. There is mild tricuspid regurgitation. Pulmonic Valve: There is no evidence of pulmonic valve thickening. There is trace pulmonic regurgitation. Pericardium: There is no pericardial effusion. Aorta: The aorta appears normal. Venous: The inferior vena cava appears normal in size. Measurements Chambers 2D Name Value Normal Range IVSd (2D) 1.16 cm (0.6 - 1.1) LVPWd (2D) 1.19 cm (0.6 - 1.1) LVIDd (2D) 4.61 cm (3.7 - 5.6) LVIDs (2D) 3.17 cm (2 - 3.8) LV FS (2D) 31.2 % - EF Teichholz (2D) 59.02 % - Ao root diameter (2D) 2.85 cm (2 - 3.7) Volumes/Mass Name Value Normal Range LA ESV SP 4CH (A/L) 47.43 ml - LA ESV SP 2CH (A/L) 81.49 ml - LA ESV BP (A/L) 63.56 ml - LA ESV BP (A/L) index 33.45 ml/m2 - LA ESV SP 4CH (MOD) 40.85 ml - LA ESV SP 2CH (MOD) 76.91 ml - LA ESV BP (MOD) 56.95 ml - LA ESV BP (MOD) index 29.97 ml/m2 - Aortic Valve Name Value Normal Range AV Vmax 1.52 m/sec - AV VTI 25.38 cm - AV peak gradient 9.26 mmHg - AV mean gradient 5.12 mmHg - LVOT diameter 2.18 cm - LVOT Vmax 1.34 m/sec - LVOT VTI 20.19 cm - LVOT peak gradient 7.23 mmHg - LVOT mean gradient 2.75 mmHg - SV LVOT 75.66 ml - MATT (continuity Vmax) 3.31 cm2 - MATT (continuity VTI) 2.98 cm2 - Ascending Ao 2.83 cm - Mitral Valve Name Value Normal Range MV PHT 27.95 msec - MVA (PHT) 7.87 cm2 - Tricuspid Valve Name Value Normal Range TR Vmax 3.61 m/sec - TR peak gradient 52 mmHg - RAP 3 mmHg - RVSP 55 mmHg - IVC diameter 1.73 cm (1.2 - 2.3) Pulmonic Valve/Qp:Qs Name Value Normal Range PV Vmax 0.63 m/sec - PV peak gradient 2.39 mmHg - IL end-diastolic Vmax 1.35 m/sec - PV acceleration time 91.34 msec - NDUM: 06/25/20 1210 Amended Report Transthoracic Echocardiogram Indication: Endocarditis BP: 170/93 HR: 118 Conclusions *Global left ventricular systolic function is normal. *The estimated ejection fraction is 55-60%. *Mild concentric left ventricular hypertrophy is observed. *The right ventricular global systolic function is normal. *The right ventricle is mildly dilated. *The aortic valve is trileaflet. The leaflets are thin with normal excursion. There is no aortic stenosis or regurgitation present. *There is trace of mitral regurgitation. *There is mild tricuspid regurgitation. *no obvious vegatations noted on mitral or aortic valve or tricupid, if clinically indicated consider matteo Findings Left Ventricle: The left ventricular chamber size is normal. Mild concentric left ventricular hypertrophy is observed. Global left ventricular wall motion and contractility are within normal limits. Global left ventricular systolic function is normal. The estimated ejection fraction is 55-60%. Left Atrium: The left atrial chamber size is normal. Right Ventricle: The right ventricle is mildly dilated. The right ventricular global systolic function is normal. Right Atrium: The right atrium is mildly dilated. Aortic Valve: The aortic valve is trileaflet. The leaflets are thin with normal excursion. There is no aortic stenosis or regurgitation present. Mitral Valve: The mitral valve leaflets appear normal. There is trace of mitral regurgitation. Tricuspid Valve: The tricuspid valve leaflets are normal. There is mild tricuspid regurgitation. Pulmonic Valve: There is no evidence of pulmonic valve thickening. There is trace pulmonic regurgitation. Pericardium: There is no pericardial effusion. Aorta: The aorta appears normal. Venous: The inferior vena cava appears normal in size. Measurements Chambers 2D Name Value Normal Range IVSd (2D) 1.16 cm (0.6 - 1.1) LVPWd (2D) 1.19 cm (0.6 - 1.1) LVIDd (2D) 4.61 cm (3.7 - 5.6) LVIDs (2D) 3.17 cm (2 - 3.8) LV FS (2D) 31.2 % - EF Teichholz (2D) 59.02 % - Ao root diameter (2D) 2.85 cm (2 - 3.7) Volumes/Mass Name Value Normal Range LA ESV SP 4CH (A/L) 47.43 ml - LA ESV SP 2CH (A/L) 81.49 ml - LA ESV BP (A/L) 63.56 ml - LA ESV BP (A/L) index 33.45 ml/m2 - LA ESV SP 4CH (MOD) 40.85 ml - LA ESV SP 2CH (MOD) 76.91 ml - LA ESV BP (MOD) 56.95 ml - LA ESV BP (MOD) index 29.97 ml/m2 - Aortic Valve Name Value Normal Range AV Vmax 1.52 m/sec - AV VTI 25.38 cm - AV peak gradient 9.26 mmHg - AV mean gradient 5.12 mmHg - LVOT diameter 2.18 cm - LVOT Vmax 1.34 m/sec - LVOT VTI 20.19 cm - LVOT peak gradient 7.23 mmHg - LVOT mean gradient 2.75 mmHg - SV LVOT 75.66 ml - MATT (continuity Vmax) 3.31 cm2 - MATT (continuity VTI) 2.98 cm2 - Ascending Ao 2.83 cm - Mitral Valve Name Value Normal Range MV PHT 27.95 msec - MVA (PHT) 7.87 cm2 - Tricuspid Valve Name Value Normal Range TR Vmax 3.61 m/sec - TR peak gradient 52 mmHg - RAP 3 mmHg - RVSP 55 mmHg - IVC diameter 1.73 cm (1.2 - 2.3) Pulmonic Valve/Qp:Qs Name Value Normal Range PV Vmax 0.63 m/sec - PV peak gradient 2.39 mmHg - IL end-diastolic Vmax 1.35 m/sec - PV acceleration time 91.34 msec - Bishop/IV: Voiding Method Urinal IV Catheter Type [Left Hand] INT / Saline Lock IV Catheter Type [Left Peripheral IV Antecubital] IV Catheter Type [Right Peripheral IV Antecubital] Active Medications - Current Medications Current Medications: Generic Name Dose Route Start Last Admin Trade Name Freq PRN Reason Stop Dose Admin Acetaminophen 650 mg 06/23/20 03:36 06/28/20 05:36 Acetaminophen 325 Mg Tab PO 650 mg Q4H PRN Administration Pain MILD(1-3)/Fever >100.5/ISRAEL Darunavir 800 mg 07/01/20 15:00 07/02/20 09:13 Darunavir 800 Mg Tab PO 800 mg QDAY DEVONTE Administration Emtricitabine 200 mg 07/01/20 15:00 07/02/20 09:13 Emtricitabine 200 Mg Cap PO 200 mg QDAY DEVONTE Administration Hydromorphone HCl 0.25 mg 06/26/20 12:41 07/02/20 04:57 Hydromorphone 1 Mg/1 Ml Inj IV 0.25 mg Q3H PRN Administration Pain , Severe (7-10) Sodium Chloride 1,000 mls @ 75 mls/hr 06/23/20 03:45 07/02/20 04:51 Nacl 0.9% 1000 Ml IV 75 mls/hr DIRECT DEVONTE Administration Ceftriaxone Sodium 2 gm in 100 mls @ 200 mls/hr 06/25/20 14:00 07/02/20 09:12 Rocephin/Ns 2 Gm/100 Ml IV 200 mls/hr Q24HR DEVONTE Administration Protocol Magnesium Hydroxide 30 ml 06/23/20 03:36 Magnesium Hydroxide (Mom) Oral Liqd Udc PO Q4H PRN Constipation Ondansetron HCl 4 mg 06/23/20 03:36 Ondansetron 4 Mg/2 Ml Inj IV Q8H PRN Nausea And Vomiting Ritonavir 100 mg 07/01/20 15:00 07/02/20 09:12 Ritonavir 100 Mg Tab PO 100 mg QDAY DEVONTE Administration Sodium Chloride 10 ml 06/23/20 10:00 07/02/20 09:13 Sodium Chloride 0.9% 10 Ml Flush Syringe IV Not Given BID DEVONTE Sodium Chloride 10 ml 06/23/20 03:36 06/30/20 16:55 Sodium Chloride 0.9% 10 Ml Flush Syringe IV 10 ml PRN PRN Administration LINE FLUSH Tenofovir Disoproxil Fumarate 300 mg 07/01/20 15:00 07/02/20 09:12 Tenofovir 300 Mg Tab PO 300 mg QDAY DEVONTE Administration Nutrition/Malnutrition Assess - Dietary Evaluation Nutrition/Malnutrition Findings: Nutrition Notes Start: 06/30/20 14:35 Freq: Status: Active Protocol: Document 06/30/20 14:35 OCTAVIO (Rec: 06/30/20 14:39 OCTAVIO [email or web address]) Nutrition Notes Need for Assessment generated from: LOS Initial or Follow up Brief Note Current Diet Renal Height 5 ft 9 in Weight 96.3 kg [place] Body Weight (kg) 72.72 BMI 31.3 Subjective/Other Information Pt screened for LOS. He has consumed 92% of meals since admission. Percent of energy/protein needs met: 100% energy and pro Current % PO Good (75-100%) Minimum of two criteria No Is patient on ventilator? No Is Patient Ambulatory and/or Out of Bed Yes REE-([place]-St. Jeor-ambulatory/OOB) [ 4685.894 NUTR.[id number]] Kcal/Kg value to use for calculation 20 Approximate Energy Requirements Using 1926 kcal/Kg Calculation Used for Recommendations Kcal/kg Additional Notes Pro needs 0.8-1g/kg adjBW: 68- 85g/day Fluid needs 1ml/kcal Nutrition Intervention Revisit per MD consult or patient Sign Off request:
[2020-07-03] MEDS: SODIUM CHLORIDE 0.9% 1000 ML 1,000 ML IV SCH ×2 (06:43→21:09)
[2020-07-03] MEDS: cefTRIAXone/NS 2 GM/100 ML 2 GM/100 ML BAG IV SCH (10:20)
[2020-07-03] MEDS: RITONAVIR 100 MG TAB PO SCH (10:20)
[2020-07-03] MEDS: DARUNAVIR 800 MG TAB PO SCH (10:20)
[2020-07-03] MEDS: TENOFOVIR 300 MG TAB PO SCH (10:21)
[2020-07-03] MEDS: EMTRICITABINE 200 MG CAP PO SCH (10:21)
--- NOTE | 2020-07-03 13:31 | Progress Note ---
Assessment and Plan Assessment and plan: -COVID-19 test negative Current Visit: Yes Status: Acute Plan to address problem: Patient negative for Covi negative --Severe sepsis with multifactorial etiology primarily atypical pneumonia and septic joint. Imaging studies pending we will place a mid line for IV access. To be able to obtain the MRI as ordered by ID. Treat the underlying cause --left shoulder pain and left hip pain Patient refused MRI , and empiric antibiotics Ortho evaluated the patient, recommended IR /CT-guided drainage of abscess, and cultures s/p CT-guided aspiration of the left hip aspirated only 5 cc of joint fluid, sent for cultures --Left upper and lower extremity hemiplegia and tenderness Likely secondary to infectious process nevertheless will rule out CVA. PT OT evaluate and treat. --Secondary coagulopathy CTA negative for PE, lower extremities venous Doppler negative for DVT --Atypical pneumonia secondary to influenza A Current Visit: Yes Status: Acute Plan to address problem: Patient initiated on ceftriaxone --HIV (human immunodeficiency virus infection) Current Visit: Yes Status: Acute Plan to address problem: CD4 count is unknown. Patient has not been antiretroviral agents for 9 months. Resume home medication --DVT prophylaxis Current Visit: Yes Status: Acute Plan to address problem: Heparin We will closely monitor the patient and adjust the management as needed Plan of care reviewed with the patient and his nurse as well as the caser up 39-year-old -Armenian male with known history of HIV with unknown CD4 count noncompliant with antiretroviral therapy presents to the emergency room today complaining of fever, fatigue, generalized malaise and joint pains which has been ongoing for the past 2 days. He has also had some knee pain and shoulder pain. He denies any fall or trauma to these joints. He has been having difficulty ambulating secondary to the pain. He has also been having m inimal shortness of breath. He denies any chest pain. Patient was diagnosed with HIV and septic arthritis about 5 years ago while in [place] . He subsequently had needle aspiration of the left knee at that time. Patient moved to [place] sometime in September 2019 and has not had any recent travel. He works from home and denies any sick contacts. He has not been on his medication since August when he moved to [place] as he has not had insurance established at his new job. Work-up today in the emergency room chest x-ray reveals: mild/early edema or atypical infectious/inflammatory process. Patient is admitted with pneumonia and will rule out COVID-19. Day#2 Patient has lots of pain Day #3 06/25/2020 Patient resting comfortably Patient uncooperative during MRI x2 Blood cultures-haemophilus influenza A positive in 2 out of 2 bottles 06/26: Remain septic at this time. Continue antibiotic therapy. Obtain imaging studies as updated. With the patient's permission discussed clinical care with the mom. We will also request for records from [facility] in [place]. 06/27: Xanax ordered for Patient to be able to obtain MRI, Continue abx, await PT/OT 06/28: Patient clinically improving. MRI reviewed shows septic joint. Considering patient's clinical improvement will still awaiting orthopedic surgeon consult of reconsulted again. Continue current antibiotic. If patient continues to have persistent fever may need to be transferred if orthopedic surgeon is unable to see the patient 24 hours. 06/29; orthopedic evaluation noted and appreciated, recommended CT-guided aspiration of the joint 07/01; patient underwent a CT-guided biopsy aspiration Follow fluid analysis and cultures, patient tolerated the procedure well History Interval history: I have seen and examined the patient at the bedside Patient's chart and medications reviewed Patient complains of generalized weakness Anxious to go home Vital signs noted Hospitalist Physical - Constitutional Vitals: Temp Pulse Resp BP Pulse Ox 98.5 F 106 H 18 129/81 99 07/03/20 05:10 07/03/20 05:10 07/03/20 05:10 07/03/20 05:10 07/03/20 05:10 General appearance: Present: mild distress, well-nourished - EENT Eyes: Present: PERRL, EOM intact - Neck Neck: Present: supple, normal ROM - Respiratory Respiratory effort: normal Respiratory: bilateral: diminished, negative: rales, rhonchi, wheezing - Cardiovascular Rhythm: regular Heart Sounds: Present: S1 & S2 - Extremities Extremities: no ischemia, No edema - Abdominal General gastrointestinal: soft, non-tender, non-distended, normal bowel sounds - Integumentary Integumentary: Present: clear, warm - Psychiatric Psychiatric: appropriate mood/affect, cooperative - Neurologic Neurologic: CNII-XII intact, moves all extremities Results - Labs CBC & Chem 7: 06/28/20 06:03 06/28/20 06:03 Labs: Laboratory Last Values WBC 7.1 K/mm3 (4.5-11.0) 06/28/20 06:03 RBC 3.07 M/mm3 (3.65-5.03) L 06/28/20 06:03 Hgb 9.2 gm/dl (11.8-15.2) L 06/28/20 06:03 Hct 27.0 % (35.5-45.6) L 06/28/20 06:03 MCV 88 fl (84-94) 06/28/20 06:03 MCH 30 pg (28-32) 06/28/20 06:03 MCHC 34 % (32-34) 06/28/20 06:03 RDW 14.8 % (13.2-15.2) 06/28/20 06:03 Plt Count 512 K/mm3 (140-440) H 06/28/20 06:03 Lymph % (Auto) 24.7 % (13.4-35.0) 06/26/20 03:57 [place] % (Auto) 14.0 % (0.0-7.3) H 06/26/20 03:57 Eos % (Auto) 0.1 % (0.0-4.3) 06/26/20 03:57 Baso % (Auto) 0.1 % (0.0-1.8) 06/26/20 03:57 Lymph # (Auto) 2.1 K/mm3 (1.2-5.4) 06/26/20 03:57 [place] # (Auto) 1.2 K/mm3 (0.0-0.8) H 06/26/20 03:57 Eos # (Auto) 0.0 K/mm3 (0.0-0.4) 06/26/20 03:57 Baso # (Auto) 0.0 K/mm3 (0.0-0.1) 06/26/20 03:57 Seg Neutrophils % 61.1 % (40.0-70.0) 06/26/20 03:57 Seg Neutrophils # 5.1 K/mm3 (1.8-7.7) 06/26/20 03:57 Abs Lymphs (Manual) 1003 cells/uL (850-3900) 06/23/20 15:29 PT 13.4 Sec. (12.2-14.9) 06/24/20 04:40 INR 1.04 (0.87-1.13) 06/24/20 04:40 D-Dimer 1312.19 ng/mlDDU (0-234) H 06/23/20 03:25 Sodium 131 mmol/L (137-145) L 06/28/20 06:03 Potassium 3.8 mmol/L (3.6-5.0) 06/28/20 06:03 Chloride 97.0 mmol/L (98-107) L 06/28/20 06:03 Carbon Dioxide 30 mmol/L (22-30) 06/28/20 06:03 Anion Gap 8 mmol/L 06/28/20 06:03 BUN 12 mg/dL (9-20) 06/28/20 06:03 Creatinine 0.7 mg/dL (0.8-1.3) L 06/28/20 06:03 Estimated GFR > 60 ml/min 06/28/20 06:03 BUN/Creatinine Ratio 17 % 06/28/20 06:03 Glucose 94 mg/dL (75-100) 06/28/20 06:03 Calcium 8.3 mg/dL (8.4-10.2) L 06/28/20 06:03 Total Bilirubin 0.40 mg/dL (0.1-1.2) 06/26/20 03:57 AST 9 units/L (5-40) 06/26/20 03:57 ALT 7 units/L (7-56) 06/26/20 03:57 Alkaline Phosphatase 54 units/L (35-129) 06/26/20 03:57 Total Creatine Kinase 24 units/L (55-170) L 06/23/20 00:12 Total Protein 8.3 g/dL (6.3-8.2) H 06/26/20 03:57 Albumin 2.1 g/dL (3.9-5) L 06/26/20 03:57 Albumin/Globulin Ratio 0.3 % 06/26/20 03:57 Lipase 15 units/L (13-60) 06/23/20 00:12 Procalcitonin 1.65 ng/mL (<0.15) 06/23/20 03:25 Urine Color Yellow (Yellow) 06/23/20 01:38 Urine Turbidity Clear (Clear) 06/23/20 01:38 Urine pH 5.0 (5.0-7.0) 06/23/20 01:38 Ur Specific [place] 1.020 (1.003-1.030) 06/23/20 01:38 Urine Protein 100 mg/dl mg/dL (Negative) 06/23/20 01:38 Urine Glucose (UA) Neg mg/dL (Negative) 06/23/20 01:38 Urine Ketones Neg mg/dL (Negative) 06/23/20 01:38 Urine Blood Lg (Negative) 06/23/20 01:38 Urine Nitrite Neg (Negative) 06/23/20 01:38 Urine Bilirubin Neg (Negative) 06/23/20 01:38 Urine Urobilinogen 4.0 mg/dL (<2.0) 06/23/20 01:38 Ur Leukocyte Esterase Neg (Negative) 06/23/20 01:38 Urine WBC (Auto) 12.0 /HPF (0.0-6.0) H 06/23/20 01:38 Urine RBC (Auto) 46.0 /HPF (0.0-6.0) 06/23/20 01:38 U Epithel Cells (Auto) 1.0 /HPF (0-13.0) 06/23/20 01:38 Urine Mucus Few /HPF 06/23/20 01:38 Lymph Enumerat CD4/CD8 0.43 (0.86-5.00) L 06/23/20 15:29 % CD3 Cells 86 % (57-85) H 06/23/20 15:29 Absolute CD3 Count 0861 cells/uL (840-3060) 06/23/20 15:29 % CD4 Cells 25 % (30-61) L 06/23/20 15:29 Absolute CD4 Count 266 cells/uL (490-1740) L 06/23/20 15:29 % CD8 Cells 58 % (12-42) H 06/23/20 15:29 Absolute CD8 Count 622 cells/uL (180-1170) 06/23/20 15:29 % CD19 Cells 3 % (6-29) L 06/23/20 15:29 Absolute CD19 Count 25 cells/uL (110-660) L 06/23/20 15:29 Coronavirus (PCR) Negative (Negative) 06/23/20 Unknown HIV-1 RNA PCR copies/ml [id number] Copies/mL H 06/23/20 15:29 HIV-1 RNA (PCR) log 5.56 Log cps/mL H 06/23/20 15:29 Microbiology: Microbiology 07/01/20 Unknown Hip - Left Surgical Culture - Preliminary - Diagnostic Impressions Diagnostic Impressions: Echocardiogram 06/24/20 14:54 Transthoracic Echocardiogram Indication: Endocarditis BP: 170/93 HR: 118 Conclusions *Global left ventricular systolic function is normal. *The estimated ejection fraction is 55-60%. *Mild concentric left ventricular hypertrophy is observed. *The right ventricular global systolic function is normal. *The right ventricle is mildly dilated. *The aortic valve is trileaflet. The leaflets are thin with normal excursion. There is no aortic stenosis or regurgitation present. *There is trace of mitral regurgitation. *There is mild tricuspid regurgitation. Findings Left Ventricle: The left ventricular chamber size is normal. Mild concentric left ventricular hypertrophy is observed. Global left ventricular wall motion and contractility are within normal limits. Global left ventricular systolic function is normal. The estimated ejection fraction is 55-60%. Left Atrium: The left atrial chamber size is normal. Right Ventricle: The right ventricle is mildly dilated. The right ventricular global systolic function is normal. Right Atrium: The right atrium is mildly dilated. Aortic Valve: The aortic valve is trileaflet. The leaflets are thin with normal excursion. There is no aortic stenosis or regurgitation present. Mitral Valve: The mitral valve leaflets appear normal. There is trace of mitral regurgitation. Tricuspid Valve: The tricuspid valve leaflets are normal. There is mild tricuspid regurgitation. Pulmonic Valve: There is no evidence of pulmonic valve thickening. There is trace pulmonic regurgitation. Pericardium: There is no pericardial effusion. Aorta: The aorta appears normal. Venous: The inferior vena cava appears normal in size. Measurements Chambers 2D Name Value Normal Range IVSd (2D) 1.16 cm (0.6 - 1.1) LVPWd (2D) 1.19 cm (0.6 - 1.1) LVIDd (2D) 4.61 cm (3.7 - 5.6) LVIDs (2D) 3.17 cm (2 - 3.8) LV FS (2D) 31.2 % - EF Teichholz (2D) 59.02 % - Ao root diameter (2D) 2.85 cm (2 - 3.7) Volumes/Mass Name Value Normal Range LA ESV SP 4CH (A/L) 47.43 ml - LA ESV SP 2CH (A/L) 81.49 ml - LA ESV BP (A/L) 63.56 ml - LA ESV BP (A/L) index 33.45 ml/m2 - LA ESV SP 4CH (MOD) 40.85 ml - LA ESV SP 2CH (MOD) 76.91 ml - LA ESV BP (MOD) 56.95 ml - LA ESV BP (MOD) index 29.97 ml/m2 - Aortic Valve Name Value Normal Range AV Vmax 1.52 m/sec - AV VTI 25.38 cm - AV peak gradient 9.26 mmHg - AV mean gradient 5.12 mmHg - LVOT diameter 2.18 cm - LVOT Vmax 1.34 m/sec - LVOT VTI 20.19 cm - LVOT peak gradient 7.23 mmHg - LVOT mean gradient 2.75 mmHg - SV LVOT 75.66 ml - MATT (continuity Vmax) 3.31 cm2 - MATT (continuity VTI) 2.98 cm2 - Ascending Ao 2.83 cm - Mitral Valve Name Value Normal Range MV PHT 27.95 msec - MVA (PHT) 7.87 cm2 - Tricuspid Valve Name Value Normal Range TR Vmax 3.61 m/sec - TR peak gradient 52 mmHg - RAP 3 mmHg - RVSP 55 mmHg - IVC diameter 1.73 cm (1.2 - 2.3) Pulmonic Valve/Qp:Qs Name Value Normal Range PV Vmax 0.63 m/sec - PV peak gradient 2.39 mmHg - ID end-diastolic Vmax 1.35 m/sec - PV acceleration time 91.34 msec - NDUM: 06/25/20 1210 Amended Report Transthoracic Echocardiogram Indication: Endocarditis BP: 170/93 HR: 118 Conclusions *Global left ventricular systolic function is normal. *The estimated ejection fraction is 55-60%. *Mild concentric left ventricular hypertrophy is observed. *The right ventricular global systolic function is normal. *The right ventricle is mildly dilated. *The aortic valve is trileaflet. The leaflets are thin with normal excursion. There is no aortic stenosis or regurgitation present. *There is trace of mitral regurgitation. *There is mild tricuspid regurgitation. *no obvious vegatations noted on mitral or aortic valve or tricupid, if clinically indicated consider matteo Findings Left Ventricle: The left ventricular chamber size is normal. Mild concentric left ventricular hypertrophy is observed. Global left ventricular wall motion and contractility are within normal limits. Global left ventricular systolic function is normal. The estimated ejection fraction is 55-60%. Left Atrium: The left atrial chamber size is normal. Right Ventricle: The right ventricle is mildly dilated. The right ventricular global systolic function is normal. Right Atrium: The right atrium is mildly dilated. Aortic Valve: The aortic valve is trileaflet. The leaflets are thin with normal excursion. There is no aortic stenosis or regurgitation present. Mitral Valve: The mitral valve leaflets appear normal. There is trace of mitral regurgitation. Tricuspid Valve: The tricuspid valve leaflets are normal. There is mild tricuspid regurgitation. Pulmonic Valve: There is no evidence of pulmonic valve thickening. There is trace pulmonic regurgitation. Pericardium: There is no pericardial effusion. Aorta: The aorta appears normal. Venous: The inferior vena cava appears normal in size. Measurements Chambers 2D Name Value Normal Range IVSd (2D) 1.16 cm (0.6 - 1.1) LVPWd (2D) 1.19 cm (0.6 - 1.1) LVIDd (2D) 4.61 cm (3.7 - 5.6) LVIDs (2D) 3.17 cm (2 - 3.8) LV FS (2D) 31.2 % - EF Teichholz (2D) 59.02 % - Ao root diameter (2D) 2.85 cm (2 - 3.7) Volumes/Mass Name Value Normal Range LA ESV SP 4CH (A/L) 47.43 ml - LA ESV SP 2CH (A/L) 81.49 ml - LA ESV BP (A/L) 63.56 ml - LA ESV BP (A/L) index 33.45 ml/m2 - LA ESV SP 4CH (MOD) 40.85 ml - LA ESV SP 2CH (MOD) 76.91 ml - LA ESV BP (MOD) 56.95 ml - LA ESV BP (MOD) index 29.97 ml/m2 - Aortic Valve Name Value Normal Range AV Vmax 1.52 m/sec - AV VTI 25.38 cm - AV peak gradient 9.26 mmHg - AV mean gradient 5.12 mmHg - LVOT diameter 2.18 cm - LVOT Vmax 1.34 m/sec - LVOT VTI 20.19 cm - LVOT peak gradient 7.23 mmHg - LVOT mean gradient 2.75 mmHg - SV LVOT 75.66 ml - MATT (continuity Vmax) 3.31 cm2 - MATT (continuity VTI) 2.98 cm2 - Ascending Ao 2.83 cm - Mitral Valve Name Value Normal Range MV PHT 27.95 msec - MVA (PHT) 7.87 cm2 - Tricuspid Valve Name Value Normal Range TR Vmax 3.61 m/sec - TR peak gradient 52 mmHg - RAP 3 mmHg - RVSP 55 mmHg - IVC diameter 1.73 cm (1.2 - 2.3) Pulmonic Valve/Qp:Qs Name Value Normal Range PV Vmax 0.63 m/sec - PV peak gradient 2.39 mmHg - ID end-diastolic Vmax 1.35 m/sec - PV acceleration time 91.34 msec - Bishop/IV: Voiding Method Urinal IV Catheter Type [Left Hand] INT / Saline Lock IV Catheter Type [Left Peripheral IV Antecubital] IV Catheter Type [Right Peripheral IV Antecubital] Active Medications - Current Medications Current Medications: Generic Name Dose Route Start Last Admin Trade Name Freq PRN Reason Stop Dose Admin Acetaminophen 650 mg 06/23/20 03:36 06/28/20 05:36 Acetaminophen 325 Mg Tab PO 650 mg Q4H PRN Administration Pain MILD(1-3)/Fever >100.5/ISRAEL Darunavir 800 mg 07/01/20 15:00 07/03/20 10:20 Darunavir 800 Mg Tab PO 800 mg QDAY DEVONTE Administration Emtricitabine 200 mg 07/01/20 15:00 07/03/20 10:21 Emtricitabine 200 Mg Cap PO 200 mg QDAY DEVONTE Administration Hydromorphone HCl 0.25 mg 06/26/20 12:41 07/02/20 21:25 Hydromorphone 1 Mg/1 Ml Inj IV 0.25 mg Q3H PRN Administration Pain , Severe (7-10) Sodium Chloride 1,000 mls @ 75 mls/hr 06/23/20 03:45 07/03/20 06:43 Nacl 0.9% 1000 Ml IV 75 mls/hr DIRECT DEVONTE Administration Ceftriaxone Sodium 2 gm in 100 mls @ 200 mls/hr 06/25/20 14:00 07/03/20 10:20 Rocephin/Ns 2 Gm/100 Ml IV 200 mls/hr Q24HR DEVONTE Administration Protocol Magnesium Hydroxide 30 ml 06/23/20 03:36 Magnesium Hydroxide (Mom) Oral Liqd Udc PO Q4H PRN Constipation Ondansetron HCl 4 mg 06/23/20 03:36 Ondansetron 4 Mg/2 Ml Inj IV Q8H PRN Nausea And Vomiting Ritonavir 100 mg 07/01/20 15:00 07/03/20 10:20 Ritonavir 100 Mg Tab PO 100 mg QDAY DEVONTE Administration Sodium Chloride 10 ml 06/23/20 10:00 07/03/20 10:22 Sodium Chloride 0.9% 10 Ml Flush Syringe IV 10 ml BID DEVONTE Administration Sodium Chloride 10 ml 06/23/20 03:36 06/30/20 16:55 Sodium Chloride 0.9% 10 Ml Flush Syringe IV 10 ml PRN PRN Administration LINE FLUSH Tenofovir Disoproxil Fumarate 300 mg 07/01/20 15:00 07/03/20 10:21 Tenofovir 300 Mg Tab PO 300 mg QDAY DEVONTE Administration Nutrition/Malnutrition Assess - Dietary Evaluation Nutrition/Malnutrition Findings: Nutrition Notes Start: 06/30/20 14:35 Freq: Status: Active Protocol: Document 06/30/20 14:35 OCTAVIO (Rec: 06/30/20 14:39 [id number]) Nutrition Notes Need for Assessment generated from: LOS Initial or Follow up Brief Note Current Diet Renal Height 5 ft 9 in Weight 96.3 kg [place] Body Weight (kg) 72.72 BMI 31.3 Subjective/Other Information Pt screened for LOS. He has consumed 92% of meals since admission. Percent of energy/protein needs met: 100% energy and pro Current % PO Good (75-100%) Minimum of two criteria No Is patient on ventilator? No Is Patient Ambulatory and/or Out of Bed Yes REE-([place]-St. Jeor-ambulatory/OOB) [ 2441.894 NUTR.[id number]] Kcal/Kg value to use for calculation 20 Approximate Energy Requirements Using 1926 kcal/Kg Calculation Used for Recommendations Kcal/kg Additional Notes Pro needs 0.8-1g/kg adjBW: 68- 85g/day Fluid needs 1ml/kcal Nutrition Intervention Revisit per MD consult or patient Sign Off request:
--- NOTE | 2020-07-03 20:26 | Event Note ---
Date: 07/03/20 I called and spoke with patient's mother from [place] Ms. Maliha Fernandez at [phone] and discussed with her patient's condition tests and reports Treatment plan and also informed her that the patient is anxious to go home, however patient need to be cleared by orthopedic surgeon prior to discharge She had many questions, answered all of them. Encouraged her to call back with any new questions or concerns
[2020-07-04] MEDS: EMTRICITABINE 200 MG CAP PO SCH (11:26)
[2020-07-04] MEDS: TENOFOVIR 300 MG TAB PO SCH (11:26)
[2020-07-04] MEDS: DARUNAVIR 800 MG TAB PO SCH (11:26)
[2020-07-04] MEDS: RITONAVIR 100 MG TAB PO SCH (11:26)
[2020-07-04] MEDS: cefTRIAXone/NS 2 GM/100 ML 2 GM/100 ML BAG IV SCH (11:27)
[2020-07-04 14:01] VITALS: BP 131/79
--- NOTE | 2020-07-04 14:35 | Progress Note ---
Assessment and Plan Cultures: SARS CoV2 PCR: negative 06/23/2020 blood culture: Haemophilus influenzae in 2 sets. Coag negative staph in 1 set. 06/25/2020 blood culture: No growth 07/01/2020 Left hip aspiration: few PMNs on Gram stain. Culture in process A/P: 39-year-old male with HIV, not on antiretroviral therapy, moved here from [place]: #SIRS/sepsis: secondary to bacteremia, ?pneumonia. #Bacteremia: Haemophilus influenzae in 2 sets, source probably septic arthritis. TTE did not reveal any significant valvular abnormalities. MRI suggestive of septic arthritis in L shoulder and L hip. Ortho evaluated on 06/29/2020. Underwent CT guided aspiration of L hip on 07/01/2020, only 0.5 cc aspirated and hence was only sent for culture. Coag negative staph in 1 set, likely contaminant. #HIV: Not on antiretroviral therapy. Used to be undetectable, on Symtuza, has not taken meds for at least 2 months after he moved here. Risk factor is MSM. Patient contacted his employer, states his new insurance has already kicked in. Started Truvada/Descovy + r/Darunavir here, upon discharge, can given prescription for Symtuza and will follow up in our clinic. HIV RNA PCR here is 364K, CD4 264 (25%). #History of left knee septic arthritis about 5 years ago: Treated with antibiotics. Recs: -continue IV Ceftriaxone 2 gm daily -Underwent CT guided aspiration of L hip on 07/01/2020, only 0.5 cc aspirated and hence was only sent for culture -Orthopedics following. Cultures likely sterilized by ongoing antibiotics. -Patient contacted his employer, states his new insurance has already kicked in. Hence, he has been started on Truvada + ritonavir boosted Darunavir here, upon discharge, please give prescription for PO Symtuza 1 tab daily x 30 days, and will follow up in our clinic for continued care -Okay to discharge on levofloxacin 750 mg every 24 hours. Will complete 3 further weeks, patient has completed 1.5 weeks of IV ceftriaxone. -Recommend clearing discharge with orthopedics. -Follow-up in our clinic in 2 weeks. Larissa Becerra MD [facility] O: [phone] F: [phone] Subjective Date of service: 07/04/20 Principal diagnosis: Pneumonia Interval history: Afebrile, no acute issues. Respiratory culture still pending, no growth so far. Objective - Exam Narrative Exam: Constitutional: Alert, cooperative. No acute distress Head, Ears, Nose: Normocephalic, atraumatic. Eyes: Conjunctivae/corneas clear. No icterus. No ptosis. Neck: Supple, no meningeal signs Cardiovascular: S1, S2 normal. Respiratory: Good air entry, clear to auscultation bilaterally GI: Soft, non-tender; bowel sounds normal. No peritoneal signs Musculoskeletal: Left shoulder and left hip with pain, reduced range of motion Skin: No rash or abscess Hem/Lymphatic: No palpable cervical or supraclavicular nodes. No lymphangitis Psych: Mood ok. Affect normal Neurological: Awake, alert, oriented. No gross abnormality - Constitutional Vitals: Vital Signs Temp Pulse Resp BP Pulse Ox 98.6 F 96 H 20 131/79 100 07/04/20 12:13 07/04/20 12:13 07/04/20 12:13 07/04/20 12:13 07/04/20 12:13 Temperature -Last 24 Hours Temperature 98.6 F Temperature 98.8 F Temperature 98.7 F Temperature 98.5 F - Labs CBC & Chem 7: 06/28/20 06:03 06/28/20 06:03
--- NOTE | 2020-07-04 15:44 | Discharge Summary ---
Providers - Providers Date of Admission: 06/24/20 18:25 Date of discharge: 07/04/20 Attending physician: ROLAND EDOUARD 06/23/20 03:36 Consult to Physician [CONS] Routine Comment: Consulting Provider: BENITO PERSAUD Physician Instructions: Reason For Exam: Pneumonia, R/O COVID-19. HIV positive 06/24/20 18:03 Consult to Physician [CONS] Routine Comment: Consulting Provider: RAVI BAHENA Physician Instructions: Reason For Exam: Hip pain 06/26/20 12:39 Occupational Therapy Evaluate and Treat [CONS] Routine Comment: Reason For Exam: DEBILTY Physical Therapy Evaluation and Treat [CONS] Routine Comment: Reason For Exam: DEBITY 06/26/20 12:42 Consult to PICC Line RN [CONS] Routine Reason For Exam: IMAGING STUDIES Type Line:: Midline 06/28/20 12:05 Consult to Physician [CONS] Routine Comment: Consulting Provider: GRETCHEN CARDENAS Physician Instructions: Reason For Exam: septic joint left shoulder Primary care physician: [employer] DEVELOPER Hospitalization Condition: Fair Disposition: DC/[place]-06 HOME UNDER HOME [facility] Time spent for discharge: 35 min Core Measure Documentation - Palliative Care Palliative Care/ Comfort Measures: Not Applicable - Core Measures Any of the following diagnoses?: none Exam - Constitutional Vitals: Temp Pulse Resp BP Pulse Ox 98.6 F 96 H 20 131/79 100 07/04/20 12:13 07/04/20 12:13 07/04/20 12:13 07/04/20 12:13 07/04/20 12:13 General appearance: Present: no acute distress, well-nourished - EENT Eyes: Present: PERRL, EOM intact - Neck Neck: Present: supple, normal ROM - Respiratory Respiratory effort: normal Respiratory: negative: diminished, rales, rhonchi, wheezing - Cardiovascular Rhythm: regular Heart Sounds: Present: S1 & S2 - Extremities Extremities: no ischemia, No edema - Abdominal General gastrointestinal: Present: soft, non-tender, non-distended, normal bowel sounds - Integumentary Integumentary: Present: clear, warm - Musculoskeletal Musculoskeletal: strength equal bilaterally, generalized weakness - Psychiatric Psychiatric: appropriate mood/affect, cooperative - Neurologic Neurologic: CNII-XII intact, moves all extremities Plan Activity: advance as tolerated, fall precautions Diet: regular Special Instructions: physical therapy Additional Instructions: Advised to see private orthopedic physician in 1 week. Advised to follow ID physician in 2 weeks. Fall precautions. If you have worsening symptoms contact MD or go to emergency room. Advised 1 week work excuse from 07/05/2020 till 07/11/2020. Check with primary care physician/ID if you need more days of work excuse Follow up with: PRIMARY CARE, [Primary Care Provider] - 3-5 Days BENITO PERSAUD MD [Staff Physician] - 14 Days RAVI BAHENA MD [Staff Physician] - 7 Days Prescriptions: oxyCODONE /ACETAMINOPHEN [Percocet 5/325] 1 tab PO BID PRN #14 tablet PRN Reason: Pain , Severe (7-10)
== END 2020-07-04 22:00 | disposition home health service (06) | DRG 975 ==
LOC: ED 21:49 → 3A 06-23 03:03 → OBSVTOIN 06-24 18:25
PROVIDERS: ADMIT Internal Medicine Geriatric Medicine; ATTEND Internal Medicine
PROC: 0S9B3ZX Drainage of Left Hip Joint, Percutaneous Approach, Diagnostic (ICD-10-PCS; principal; 2020-07-01)
DX: A41.9 Sepsis, unspecified organism (principal); B20 Human immunodeficiency virus [HIV] disease; D68.8 Other specified coagulation defects; Z20.828 Contact with and (suspected) exposure to other viral communicable diseases; M25.552 Pain in left hip; R65.20 Severe sepsis without septic shock; J10.08 Influenza due to other identified influenza virus with other specified pneumonia; I69.351 Hemiplegia and hemiparesis following cerebral infarction affecting right dominant side; Z91.14 Patient's other noncompliance with medication regimen; Z79.899 Other long term (current) drug therapy
CPT/HCPCS: 10160; 36415; 70450; 71045; 71275; 77012; 80048; 80053; 81001; 82024; 82550; 83690; 84145; 85025; 85027; 85379; 85610; 87040; 87086; 87116; 87536; 93005; 93306; 93970; 96374; 96375; G0378; A9577; J0456; J0692; J0696; J1100; J1170; J1885; J2060; J2270; J2405; J3370; J7030; J7050; Q9967; U0003